=== PATIENT | female | born 1940 | race Caucasian/White ===

== ENCOUNTER 2019-02-22 17:25 | Inpatient (IN) | payer MEDICARE, OTHER ==
[~2019-02-22] VITALS: Ht 160 cm; Wt 71.0 kg
[~2019-02-22 17:25] MED LIST: ALBU2.5V8 INH; CIPR250T30 PO; CYCL10TA2 PO; DOCU100C28 PO; FURO-69 PO; HYDR-2679 PO; LISI-334 PO; MELO7.5T29 PO; PANT40GR PO; PIOG15TA63 PO; POLY17PO29 PO; WARF2TAB96 PO; WARF3TAB54 PO; vitamin D2
[2019-02-22] MEDS ORDERED: IV NORMAL SALINE 500ML BAG 500 ML IV ONE (17:30)
[2019-02-22 18:27] LABS: BASO % 0 % (0-3); EOS % 0 % (0-3); HEMATOCRIT 40.7 % (36.0-47.0); LYMPH # 0.5 x10^3/uL (1.0-4.8); LYMPH % 8 % (24-48); MEAN CORPUSCULAR HEMOGLOBIN 34 pg (25-35); MEAN CORPUSCULAR HGB CONC 35 g/dL (31-37); MEAN CORPUSCULAR VOLUME 98 fL (79-100); MONO # 0.4 x10^3/uL (0.0-1.1); MONO % 6 % (0-9); NEUT # 5.4 x10^3uL (1.8-7.7); NEUT % 86 % (31-73); PLATELET COUNT 132 x10^3/uL (140-400); RED BLOOD COUNT 4.18 x10^6/uL (3.50-5.40); RED CELL DISTRIBUTION WIDTH 12.4 % (11.5-14.5); WHITE BLOOD COUNT 6.3 x10^3/uL (4.0-11.0)
[2019-02-22] MEDS ORDERED: fentaNYL PF VIAL 100 MCG/2 ML VIAL IV ONE (18:30)
[2019-02-22 18:36] LABS: CALCIUM 8.9 mg/dL (8.5-10.1); CREATININE 1.3 mg/dL (0.6-1.0); GFR 39.7; POTASSIUM 3.9 mmol/L (3.5-5.1)
[2019-02-22 18:42] LABS: ALBUMIN 3.7 g/dL (3.4-5.0); ALBUMIN/GLOBULIN RATIO 1.3 (1.0-1.7); MAGNESIUM 2.1 mg/dL (1.8-2.4); TOTAL BILIRUBIN 0.5 mg/dL (0.2-1.0); TOTAL PROTEIN 6.5 g/dL (6.4-8.2)
[2019-02-22 18:54] LABS: % BANDS 3 % (0-9); % LYMPHS 13 % (24-48); % MONOS 2 % (0-10); % SEGS 82 % (35-66)
[2019-02-22 18:55] LABS: PLT ESTIMATE DECREASED (ADEQUATE)
--- NOTE | 2019-02-22 19:01 | RAD ---
Right lower extremity venous duplex study 02/22/2019 Clinical History: Right leg swelling and pain. History of DVT. Technique: Using a combination of real time ultrasound imaging and color-flow and pulse Doppler imaging techniques along with graded compression and augmentation, duplex evaluation of the deep venous system of the right lower extremity was performed. Multiple images were obtained. Findings: Marked edema is seen within the soft tissues of the right leg limits evaluation of the major deep venous structures of the right lower extremity to some degree. There is no definite sonographic evidence of deep venous thrombosis involving the visualized deep venous structures of the right lower extremity. Impression: Negative study. Electronically signed by: Tommy Miller MD (02/22/2019 6:59 PM) [facility]
--- NOTE | 2019-02-22 19:27 | PHYS DOC ---
Past Medical History Past Medical History: Diabetes-Type II, Hypertension, Other Additional Past Medical Histor: PVC VALVE (CARDIAC), SKIN CANCER (MIRIAM FARAH APRN) Past Surgical History: Cholecystectomy, Hip Replacement, Other Additional Past Surgical Histo: SKIN CANCER REMOVAL (MIRIAM FARAH APRN) Alcohol Use: None Drug Use: None (MIRIAM FARAH APRN) Adult General Chief Complaint Chief Complaint: MULTIPLE COMPLAINTS HPI HPI 78-year-old female presents to ER via EMS for generalized weakness and right lower extremity pain. EMS reports pt has hx of DVT- she states she doesn't think she is still on anticoag medication. No family w/pt. Pt providing minimal information during questioning. She does c/o rt upper leg pain- no reports of fall per EMS. (MIRIAM FARAH APRN) Review of Systems Review of Systems Constitutional: Denies fever or chills. Reports gen. fatigue/weakness Eyes: Denies change in visual acuity, redness, or eye pain [] HENT: Denies nasal congestion or sore throat [] Respiratory: Denies cough or shortness of breath [] Cardiovascular: No additional information not addressed in HPI [] GI: Denies abdominal pain, nausea, vomiting, bloody stools or diarrhea [] : Denies dysuria or hematuria [] Musculoskeletal: Denies back pain. Reports rt hip pain Integument: Denies rash or skin lesions [] Neurologic: Denies headache, focal weakness or sensory changes [] Endocrine: Denies polyuria or polydipsia [] All other systems were reviewed and found to be within normal limits, except as documented in this note. (MIRIAM FARAH APRN) Current Medications Current Medications Current Medications Medications (Trade) Dose Ordered Sig/Jamila Start Time Stop Time Status Last Admin Dose Admin Fentanyl Citrate (Fentanyl 2ml Vial) 25 mcg 1X ONCE 02/22/19 18:30 02/22/19 18:31 DC 02/22/19 18:34 25 MCG Sodium Chloride 500 ml @ 500 mls/hr 1X ONCE 02/22/19 17:30 02/22/19 18:29 DC 02/22/19 18:33 500 MLS/HR (ALONDRA BRUNO MD) Physical Exam Physical Exam Constitutional: Well developed, well nourished, fatigued appearance, non-toxic appearance. [place] HENT: Normocephalic, atraumatic, mucous membranes pink/dry, nose normal. [] Eyes: PERRLA, conjunctiva normal, no discharge. [] Neck: Normal range of motion, no tenderness mid line cspine- no palp. deformity/crepitus, supple, no stridor. Trachea mid line Cardiovascular: Heart rate regular rhythm, no murmur [] Lungs & Thorax: Bilateral breath sounds clear to auscultation- resp. equal/nonlabored. Abdomen: Bowel sounds normal, soft, no tenderness/distention/rigidity, no masses, no pulsatile masses. [] Skin: Warm, dry, no erythema, no rash. [] Back: No tenderness mid line spine- no palp. deformity, no CVA tenderness. [] Extremities: Pelvis stable. Tender rt lateral upper thigh into hip- no palp. deformity/ecchymosis, no cyanosis, no clubbing. Bruising rt anterior/top of rt shoulder- healed scar lateral rt shoulder. No palp. deformity. ROM intact bilat. upper extremities/lt LE. Decreased ROM rt hip- able to perform ROM of rt knee/ankle- no c/o pain, 1+ bilat. pedal nonpitting. 2+ radial bilat. 2+ dorsalis pedis/posterior tibial. Neurologic: Alert and oriented X 3, normal motor function, normal sensory function, no focal deficits noted. [] Psychologic: Affect normal, judgement normal, mood normal. [] (REFBENIT,MIRIAM Delacruz APRN) Current Patient Data Vital Signs Vital Signs Date Time Temp Pulse Resp B/P (MAP) Pulse Ox O2 Delivery O2 Flow Rate FiO2 02/22/19 19:42 64 175/78 (110) Room Air 02/22/19 18:34 20 02/22/19 18:12 97 02/22/19 17:30 99.7 99.7 (ALONDRA BRUNO MD) Lab Values Laboratory Tests Test 02/22/19 18:15 White Blood Count 6.3 x10^3/uL (4.0-11.0) Red Blood Count 4.18 x10^6/uL (3.50-5.40) Hemoglobin 14.0 g/dL (12.0-15.5) Hematocrit 40.7 % (36.0-47.0) Mean Corpuscular Volume 98 fL (79-100) Mean Corpuscular Hemoglobin 34 pg (25-35) Mean Corpuscular Hemoglobin Concent 35 g/dL (31-37) Red Cell Distribution Width 12.4 % (11.5-14.5) Platelet Count 132 x10^3/uL (140-400) L Neutrophils (%) (Auto) 86 % (31-73) H Lymphocytes (%) (Auto) 8 % (24-48) L Monocytes (%) (Auto) 6 % (0-9) Eosinophils (%) (Auto) 0 % (0-3) Basophils (%) (Auto) 0 % (0-3) Neutrophils # (Auto) 5.4 x10^3uL (1.8-7.7) Lymphocytes # (Auto) 0.5 x10^3/uL (1.0-4.8) L Monocytes # (Auto) 0.4 x10^3/uL (0.0-1.1) Eosinophils # (Auto) 0.0 x10^3/uL (0.0-0.7) Basophils # (Auto) 0.0 x10^3/uL (0.0-0.2) Segmented Neutrophils % 82 % (35-66) H Band Neutrophils % 3 % (0-9) Lymphocytes % 13 % (24-48) L Monocytes % 2 % (0-10) Platelet Estimate Decreased (ADEQUATE) Sodium Level 146 mmol/L (136-145) H Potassium Level 3.9 mmol/L (3.5-5.1) Chloride Level 105 mmol/L (98-107) Carbon Dioxide Level 31 mmol/L (21-32) Anion Gap 10 (6-14) Blood Urea Nitrogen 33 mg/dL (7-20) H Creatinine 1.3 mg/dL (0.6-1.0) H Estimated GFR (Cockcroft-Gault) 39.7 BUN/Creatinine Ratio 25 (6-20) H Glucose Level 218 mg/dL (70-99) H Calcium Level 8.9 mg/dL (8.5-10.1) Magnesium Level 2.1 mg/dL (1.8-2.4) Total Bilirubin 0.5 mg/dL (0.2-1.0) Aspartate Amino Transferase (AST) 15 U/L (15-37) Alanine Aminotransferase (ALT) 20 U/L (14-59) Alkaline Phosphatase 111 U/L (46-116) Troponin I Quantitative < 0.017 ng/mL (0.000-0.055) Total Protein 6.5 g/dL (6.4-8.2) Albumin 3.7 g/dL (3.4-5.0) Albumin/Globulin Ratio 1.3 (1.0-1.7) Laboratory Tests 02/22/19 18:15 Laboratory Tests 02/22/19 18:15 (ALONDRA BRUNO MD) EKG EKG EKG obtained 02/22/19 at 1758 Interpreted by ER physician Sinus rhythm PACs Rate 65 No STEMI (MIRIAM FARAH APRN) Radiology/Procedures Radiology/Procedures PROCEDURE: VENOUS LOWER EXTREMITY RIGHT Right lower extremity venous duplex study 02/22/2019 Clinical History: Right leg swelling and pain. History of DVT. Technique: Using a combination of real time ultrasound imaging and color-flow and pulse Doppler imaging techniques along with graded compression and augmentation, duplex evaluation of the deep venous system of the right lower extremity was performed. Multiple images were obtained. Findings: Marked edema is seen within the soft tissues of the right leg limits evaluation of the major deep venous structures of the right lower extremity to some degree. There is no definite sonographic evidence of deep venous thrombosis involving the visualized deep venous structures of the right lower extremity. Impression: Negative study. Electronically signed by: Tommy Miller MD (02/22/2019 6:59 PM) [facility] DICTATED and SIGNED BY: TOMMY MILLER MD DATE: 02/22/191858 (MIRIAM FARAH APRN) Course & Med Decision Making Course & Med Decision Making Pertinent Labs and Imaging studies reviewed. (See chart for details) Patient's god daughter and cousin arrived bedside and provided additional i nformation. Per goddaughter patient was walking to the bathroom with her assistance and her rt leg gave out on her causing her to fall and she was able to assist pt to the floor. She did strike her rt side on a fish tank. She denies that patient struck her head or had any loss of consciousness during the fall. She reports patient has been increasingly weaker. She denies patient with recent flu or cold-like illness. She denies patient has been complaining of chest pain, abdominal pain, or having any vomiting or diarrhea. She denies patient with urinary symptoms. She denies travel. Patient is a daily smoker. She has family reports she does have fentanyl patch on. Dr. Bruno viewed pt's xrays with rt hip fx- chest/rt shoulder xray neg. for obvious acute displaced fx. Will admit pt to PCP and consult orthop. Will have fentanyl patch removed for when necessary medications while in the hospital. 2009: Spoke with Dr. Peguero electronic component processor for Dr. Polanco pt's PCP. Discussed patient's case and imaging results. Discussed plans for admission with consult for orthopedics. She has remained neuro and vascular intact in right lower extremity. Patient had negative ultrasound as that had been ordered prior to obtaining additional information from family on mechanism of right leg pain and fall. 2017: Spoke with Dr. Calixto on-call orthopedics and discussed patient's case plans for consult with patient's admission for their services. (MIRIAM FARAH APRN) Course & Med Decision Making Staff Physician Addendum: I was working in the ER during the course of this patient's visit. I was available for consultation as needed, but I was not directly involved in the care of this patient. (ALONDRA BRUNO MD) Dragon Disclaimer Dragon Disclaimer This electronic medical record was generated, in whole or in part, using a voice recognition dictation system. (MIRIAM FARAH APRN) Departure Departure Impression: Primary Impression: Fracture of hip, right, closed Additional Impression: Weakness Disposition: ADMITTED INPATIENT Admitting Physician: London Polanco (MIRIAM FARAH APRN) Condition: STABLE Referrals: LONDON POLANCO MD (PCP) Problem Qualifiers MIRIAM FARAH APRN February 22, 2019 19:27 ALONDRA BURNO MD February 27, 2019 14:18
[2019-02-22 21:03] LABS: BILIRUBIN,URINE NEGATIVE (NEG); CLARITY,URINE CLEAR; COLOR,URINE YELLOW; NITRITE,URINE NEGATIVE (NEG); PH,URINE 6.5; PROTEIN,URINE NEGATIVE (NEG-TRACE)
[2019-02-22 21:08] LABS: BACTERIA,URINE FEW /HPF (0-FEW); RBC,URINE RARE /HPF (0-2); SQUAMOUS EPITHELIAL CELL,UR FEW /LPF; WBC,URINE OCC /HPF (0-4)
[2019-02-22 21:20] VITALS: BP 179/90
[2019-02-22 23:00] VITALS: BP 145/61
[2019-02-22] MEDS ORDERED: ACETAMINOPHEN 325 MG TABLET. PO PRN (23:15)
[2019-02-22] MEDS ORDERED: fentaNYL PF VIAL 100 MCG/2 ML VIAL IV PRN (23:15)
[2019-02-22] MEDS ORDERED: ONDANSETRON PF 4 MG/2 ML VIAL. IV PRN (23:15)
--- NOTE | 2019-02-22 23:49 | RAD ---
Three-view right shoulder radiographs 02/22/2019 CLINICAL HISTORY: Fall with right shoulder bruising. AP internal and external rotation and transscapular digital radiographs of the right shoulder were obtained. Surgical clips overlie the right axilla and right lateral chest. No fracture or dislocation of the right shoulder is seen. There is diffuse osteopenia of the visualized bony structures. Somewhat rounded soft tissue calcifications are seen inferior to the right shoulder which measure 5 mm to 2.5 cm in size. Mild to moderate degenerative changes are seen involving the right AC joint and right glenohumeral joint. IMPRESSION: No fracture or dislocation of the right shoulder is seen. Electronically signed by: Tommy Miller MD (02/22/2019 11:46 PM) [facility]
--- NOTE | 2019-02-22 23:51 | RAD ---
AP pelvis radiograph to include AP and lateral radiographs of the right hip 02/22/2019 CLINICAL HISTORY: Pelvic and right hip pain. An AP digital radiograph of the pelvis to include both hips was obtained. AP and lateral digital radiographs of the right hip were obtained. The patient is post bilateral CHERIE. There is diffuse osteopenia of the visualized bony structures. No pelvic bone fracture is seen. Both hips are intact. No fracture or dislocation of the right hip is seen. IMPRESSION: No fracture or dislocation of the right hip is seen. Electronically signed by: Tommy Milelr MD (02/22/2019 11:49 PM) [facility]
--- NOTE | 2019-02-22 23:53 | RAD ---
AP portable chest radiograph 02/22/2019 Clinical History: Weakness. An AP erect portable digital radiograph of the chest was obtained. Comparison study is dated 04/11/2014. Surgical clips overlie the right axilla. The cardiac silhouette is mildly enlarged. The thoracic aorta is tortuous. No acute pulmonary infiltrate is seen. No pleural effusion or pneumothorax is noted. There is diffuse osteopenia of the visualized bony structures. Degenerative changes are seen involving the thoracic spine and both shoulders.. Impression: No acute abnormality is seen. Electronically signed by: Tommy Miller MD (02/22/2019 11:50 PM) [facility]
[2019-02-23 03:00] VITALS: BP 124/81
[2019-02-23 07:00] VITALS: BP 111/48
[2019-02-23] MEDS ORDERED: HYDROcodone/APAP 7.5/325MG 1 TAB TABLET PO PRN (07:00)
[2019-02-23] MEDS ORDERED: ALBUTEROL SULFATE 2.5 MG/3 ML NEBU. INH PRN (07:00)
[2019-02-23] MEDS ORDERED: POLYETHYLENE GLYCOL 3350 17 GM PACKET. PO PRN (07:00)
--- NOTE | 2019-02-23 07:05 | PDOC1 ---
History and Physical Date of Admission Date of Admission 02/22/19 Identification/Chief Complaint Chief Complaint Right hip pain Source Source: Chart review, Patient History of Present Illness History of Present Illness Received a phone call from ER last night that pt had right hip fracture. Hip xray read does not show fracture. Pt is very hard of hearing and has a difficult time being able to answer questions. In discussing with nursing and reviewing the chart, it appears that pt may have had a fall last night and hit a fish tank. She does have multiple bruises. She has significant pain with me trying to touch her right lower extremity Past Medical History Cardiovascular: HTN, Hyperlipidemia Pulmonary: COPD GI: GERD Heme/Onc: No pertinent hx Hepatobiliary: No pertinent hx Psych: No pertinent hx Rheumatologic: No pertinent hx Infectious disease: No pertinent hx ENT: No pertinent hx Renal/: No pertinent hx Endocrine: Diabetes Dermatology: No pertinent hx Past Surgical History Past Surgical History: Cholecystectomy, Tubal Ligation, Other (Abscess I&Ds) Family History Family History: Cancer, Heart Disease Social History Smoke: <1 pack per day ALCOHOL: none Drugs: None Current Problem List Problem List Problems Medical Problems: (1) Fracture of hip, right, closed Status: Acute (2) Weakness Status: Acute Current Medications Current Medications Current Medications Medications (Trade) Dose Ordered Sig/Jamila Start Time Stop Time Status Last Admin Dose Admin Acetaminophen (Tylenol) 650 mg PRN Q4HRS PRN 02/22/19 23:15 02/23/19 23:14 Fentanyl Citrate (Fentanyl 2ml Vial) 25 mcg PRN Q2HRS PRN 02/22/19 23:15 02/23/19 23:14 Ondansetron HCl (Zofran) 4 mg PRN Q8HRS PRN 02/22/19 23:15 02/23/19 23:14 Sodium Chloride 500 ml @ 500 mls/hr 1X ONCE 02/22/19 17:30 02/22/19 18:29 DC 02/22/19 18:33 500 MLS/HR Allergies Allergies Allergies Coded Allergies Type Severity Reaction Last Updated Verified Penicillins Allergy Intermediate 02/23/19 Yes morphine Allergy Intermediate 02/23/19 Yes Uncoded Allergies Type Severity Reaction Last Updated Verified STEROIDS Adverse Reaction Severe Anxiety 02/22/19 ROS Review of System Unable to obtain as pt is not able to contribute to H&P Physical Exam Physical Exam GEN.: No apparent distress. Alert and oriented. HEENT: Head is normocephalic, atraumatic NECK: Supple. LUNGS: Clear to auscultation. HEART: RRR, S1, S2 present. Peripheral pulses intact ABDOMEN: Soft, nontender. Positive bowel sounds. EXTREMITIES: Without any cyanosis, multiple ecchymoses, right lower extremity TTP NEUROLOGIC: CN2-12 GI PSYCHIATRIC: Normal affect, normal mood. SKIN: No ulcerations Vitals Vitals Vital Signs Date Time Temp Pulse Resp B/P (MAP) Pulse Ox O2 Delivery O2 Flow Rate FiO2 02/23/19 03:00 98.1 85 16 124/81 (95) 94 Room Air 98.1 Labs Labs Laboratory Tests Test 02/22/19 18:15 02/22/19 20:50 White Blood Count 6.3 x10^3/uL (4.0-11.0) Red Blood Count 4.18 x10^6/uL (3.50-5.40) Hemoglobin 14.0 g/dL (12.0-15.5) Hematocrit 40.7 % (36.0-47.0) Mean Corpuscular Volume 98 fL (79-100) Mean Corpuscular Hemoglobin 34 pg (25-35) Mean Corpuscular Hemoglobin Concent 35 g/dL (31-37) Red Cell Distribution Width 12.4 % (11.5-14.5) Platelet Count 132 x10^3/uL (140-400) Neutrophils (%) (Auto) 86 % (31-73) Lymphocytes (%) (Auto) 8 % (24-48) Monocytes (%) (Auto) 6 % (0-9) Eosinophils (%) (Auto) 0 % (0-3) Basophils (%) (Auto) 0 % (0-3) Neutrophils # (Auto) 5.4 x10^3uL (1.8-7.7) Lymphocytes # (Auto) 0.5 x10^3/uL (1.0-4.8) Monocytes # (Auto) 0.4 x10^3/uL (0.0-1.1) Eosinophils # (Auto) 0.0 x10^3/uL (0.0-0.7) Basophils # (Auto) 0.0 x10^3/uL (0.0-0.2) Segmented Neutrophils % 82 % (35-66) Band Neutrophils % 3 % (0-9) Lymphocytes % 13 % (24-48) Monocytes % 2 % (0-10) Platelet Estimate Decreased (ADEQUATE) Sodium Level 146 mmol/L (136-145) Potassium Level 3.9 mmol/L (3.5-5.1) Chloride Level 105 mmol/L (98-107) Carbon Dioxide Level 31 mmol/L (21-32) Anion Gap 10 (6-14) Blood Urea Nitrogen 33 mg/dL (7-20) Creatinine 1.3 mg/dL (0.6-1.0) Estimated GFR (Cockcroft-Gault) 39.7 BUN/Creatinine Ratio 25 (6-20) Glucose Level 218 mg/dL (70-99) Calcium Level 8.9 mg/dL (8.5-10.1) Magnesium Level 2.1 mg/dL (1.8-2.4) Total Bilirubin 0.5 mg/dL (0.2-1.0) Aspartate Amino Transf (AST/SGOT) 15 U/L (15-37) Alanine Aminotransferase (ALT/SGPT) 20 U/L (14-59) Alkaline Phosphatase 111 U/L (46-116) Troponin I Quantitative < 0.017 ng/mL (0.000-0.055) Total Protein 6.5 g/dL (6.4-8.2) Albumin 3.7 g/dL (3.4-5.0) Albumin/Globulin Ratio 1.3 (1.0-1.7) Urine Collection Type Unknown Urine Color Yellow Urine Clarity Clear Urine pH 6.5 Urine Specific [place] 1.015 Urine Protein Negative mg/dL (NEG-TRACE) Urine Glucose (UA) 250 mg/dL (NEG) Urine Ketones (Stick) Negative mg/dL (NEG) Urine Blood Negative (NEG) Urine Nitrite Negative (NEG) Urine Bilirubin Negative (NEG) Urine Urobilinogen Dipstick 1.0 mg/dL (0.2 mg/dL) Urine Leukocyte Esterase Negative (NEG) Urine RBC Rare /HPF (0-2) Urine WBC Occ /HPF (0-4) Urine Squamous Epithelial Cells Few /LPF Urine Bacteria Few /HPF (0-FEW) Urine Mucus Slight /LPF Laboratory Tests Test 02/22/19 18:15 02/22/19 20:50 White Blood Count 6.3 x10^3/uL (4.0-11.0) Red Blood Count 4.18 x10^6/uL (3.50-5.40) Hemoglobin 14.0 g/dL (12.0-15.5) Hematocrit 40.7 % (36.0-47.0) Mean Corpuscular Volume 98 fL (79-100) Mean Corpuscular Hemoglobin 34 pg (25-35) Mean Corpuscular Hemoglobin Concent 35 g/dL (31-37) Red Cell Distribution Width 12.4 % (11.5-14.5) Platelet Count 132 x10^3/uL (140-400) Neutrophils (%) (Auto) 86 % (31-73) Lymphocytes (%) (Auto) 8 % (24-48) Monocytes (%) (Auto) 6 % (0-9) Eosinophils (%) (Auto) 0 % (0-3) Basophils (%) (Auto) 0 % (0-3) Neutrophils # (Auto) 5.4 x10^3uL (1.8-7.7) Lymphocytes # (Auto) 0.5 x10^3/uL (1.0-4.8) Monocytes # (Auto) 0.4 x10^3/uL (0.0-1.1) Eosinophils # (Auto) 0.0 x10^3/uL (0.0-0.7) Basophils # (Auto) 0.0 x10^3/uL (0.0-0.2) Segmented Neutrophils % 82 % (35-66) Band Neutrophils % 3 % (0-9) Lymphocytes % 13 % (24-48) Monocytes % 2 % (0-10) Platelet Estimate Decreased (ADEQUATE) Sodium Level 146 mmol/L (136-145) Potassium Level 3.9 mmol/L (3.5-5.1) Chloride Level 105 mmol/L (98-107) Carbon Dioxide Level 31 mmol/L (21-32) Anion Gap 10 (6-14) Blood Urea Nitrogen 33 mg/dL (7-20) Creatinine 1.3 mg/dL (0.6-1.0) Estimated GFR (Cockcroft-Gault) 39.7 BUN/Creatinine Ratio 25 (6-20) Glucose Level 218 mg/dL (70-99) Calcium Level 8.9 mg/dL (8.5-10.1) Magnesium Level 2.1 mg/dL (1.8-2.4) Total Bilirubin 0.5 mg/dL (0.2-1.0) Aspartate Amino Transf (AST/SGOT) 15 U/L (15-37) Alanine Aminotransferase (ALT/SGPT) 20 U/L (14-59) Alkaline Phosphatase 111 U/L (46-116) Troponin I Quantitative < 0.017 ng/mL (0.000-0.055) Total Protein 6.5 g/dL (6.4-8.2) Albumin 3.7 g/dL (3.4-5.0) Albumin/Globulin Ratio 1.3 (1.0-1.7) Urine Collection Type Unknown Urine Color Yellow Urine Clarity Clear Urine pH 6.5 Urine Specific [place] 1.015 Urine Protein Negative mg/dL (NEG-TRACE) Urine Glucose (UA) 250 mg/dL (NEG) Urine Ketones (Stick) Negative mg/dL (NEG) Urine Blood Negative (NEG) Urine Nitrite Negative (NEG) Urine Bilirubin Negative (NEG) Urine Urobilinogen Dipstick 1.0 mg/dL (0.2 mg/dL) Urine Leukocyte Esterase Negative (NEG) Urine RBC Rare /HPF (0-2) Urine WBC Occ /HPF (0-4) Urine Squamous Epithelial Cells Few /LPF Urine Bacteria Few /HPF (0-FEW) Urine Mucus Slight /LPF VTE Prophylaxis Ordered VTE Prophylaxis Devices: Yes VTE Pharmacological Prophylaxi: No Assessment/Plan Assessment/Plan Pt is a 78yo CF admitted for possible right hip fracture 1)Right hip pain- official xray read does not show fracture. Pt having a lot of pain. Family not currently present. Will have PT/OT evaluate. Pt appears to be wheelchair bound at baseline. May need SNF placement. 2)HTN- well controlled, will continue home medications of Lisinopril 20mg, Lasix 40mg 3)DM2- blood sugars appear to be uncontrolled. HbA1C pending. SSI available. Resumed on pioglitazone 4)TIM- pt appears to be slightly dehydrated. IVF hydration provided, will recheck 5)Hypernatremia- 2/2 above, CTM 6)Thrombocytopenia- appears to be acute, CTM BRYAN HARPER MD February 23, 2019 07:05
[2019-02-23] MEDS ORDERED: DEXTROSE 50% 25 GM / 50ML DISP.SYRIN. IV PRN (07:15)
--- NOTE | 2019-02-23 07:17 | EKG ---
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
[2019-02-23] MEDS ORDERED: PANTOPRAZOLE 40 MG TABLET.DR. PO SCH (07:30)
[2019-02-23] MEDS ORDERED: IV NORMAL SALINE 1000ML BAG 1,000 ML IV ONE (08:00)
[2019-02-23] MEDS: INSULIN LISPRO 300 UNITS/3 ML INSULN.PEN. SQ SCH ×2 (08:42→11:50)
[2019-02-23] MEDS ORDERED: LISINOPRIL 20 MG TABLET PO SCH (09:00)
[2019-02-23] MEDS ORDERED: DOCUSATE SODIUM 100 MG CAPSULE. PO SCH (09:00)
[2019-02-23] MEDS ORDERED: PIOGLITAZONE 15 MG TABLET. PO SCH (09:00)
[2019-02-23] MEDS ORDERED: CYCLOBENZAPRINE 10 MG TABLET. PO SCH ×2 (09:00→21:00)
[2019-02-23] MEDS ORDERED: MELOXICAM 7.5 MG TABLET PO SCH (09:00)
[2019-02-23 09:27] LABS: BASO % 0 % (0-3); EOS # 0.1 x10^3/uL (0.0-0.7); EOS % 1 % (0-3); HEMATOCRIT 36.7 % (36.0-47.0); HEMOGLOBIN 12.3 g/dL (12.0-15.5); LYMPH # 1.2 x10^3/uL (1.0-4.8); LYMPH % 23 % (24-48); MEAN CORPUSCULAR HEMOGLOBIN 33 pg (25-35); MEAN CORPUSCULAR HGB CONC 34 g/dL (31-37); MEAN CORPUSCULAR VOLUME 98 fL (79-100); MONO # 0.5 x10^3/uL (0.0-1.1); MONO % 9 % (0-9); NEUT # 3.7 x10^3uL (1.8-7.7); NEUT % 67 % (31-73); PLATELET COUNT 118 x10^3/uL (140-400); RED BLOOD COUNT 3.73 x10^6/uL (3.50-5.40); RED CELL DISTRIBUTION WIDTH 12.3 % (11.5-14.5); WHITE BLOOD COUNT 5.5 x10^3/uL (4.0-11.0)
[2019-02-23 09:38] LABS: ALBUMIN/GLOBULIN RATIO 1.4 (1.0-1.7); CALCIUM 8.1 mg/dL (8.5-10.1); GFR 53.8; POTASSIUM 3.8 mmol/L (3.5-5.1); TOTAL BILIRUBIN 0.7 mg/dL (0.2-1.0); TOTAL PROTEIN 5.2 g/dL (6.4-8.2)
[2019-02-23 11:00] VITALS: BP 135/59
--- NOTE | 2019-02-23 12:27 | PDOC2 ---
CONSULT Date of Consult Date of Consult DATE: 02/23/19 TIME: 12:21 Reason for Consult Reason for Consult: right hip pain, possible fracture Identification/Chief Complaint Chief Complaint right hip pain after a fall Source Source: Caregiver, Chart review, Patient History of Present Illness Reason for Visit: This 78 year old woman is hard of hearing and didn't speak, but answered questions by shaking her head. Sh'e admits to a fall, and now right hip pain wi th ambulation. It's tolerable, and she has been up with a walker today. Some history provided by family member in the room. Remote hip surgery on the right. Past Medical History Cardiovascular: HTN, Hyperlipidemia Pulmonary: COPD GI: GERD Heme/Onc: No pertinent hx Hepatobiliary: No pertinent hx Psych: No pertinent hx Rheumatologic: No pertinent hx Infectious disease: No pertinent hx ENT: No pertinent hx Renal/: No pertinent hx Endocrine: Diabetes Dermatology: No pertinent hx Past Surgical History Past Surgical History: Cholecystectomy, Tubal Ligation, Other (Abscess I&Ds) Family History Family History: Cancer, Heart Disease Social History <1 pack per day ALCOHOL: none Drugs: None Lives: with Family Current Problem List Problem List Problems Medical Problems: (1) Fracture of hip, right, closed Status: Acute (2) Weakness Status: Acute Current Medications Current Medications Current Medications Sodium Chloride 500 ml @ 500 mls/hr 1X ONCE IV Last administered on 02/22/19at 18:33; Start 02/22/19 at 17:30; Stop 02/22/19 at 18:29; Status DC Fentanyl Citrate (Fentanyl 2ml Vial) 25 mcg 1X ONCE IV Last administered on 02/22/19at 18:34; Start 02/22/19 at 18:30; Stop 02/22/19 at 18:31; Status DC Ondansetron HCl (Zofran) 4 mg PRN Q8HRS PRN IV NAUSEA/VOMITING; Start 02/22/19 at 23:15; Stop 02/23/19 at 23:14 Fentanyl Citrate (Fentanyl 2ml Vial) 25 mcg PRN Q2HRS PRN IV PAIN; Start 02/22/19 at 23:15; Stop 02/23/19 at 23:14 Acetaminophen (Tylenol) 650 mg PRN Q4HRS PRN PO FEVER; Start 02/22/19 at 23:15; Stop 02/23/19 at 23:14 Albuterol Sulfate (Ventolin Neb Soln) 2.5 mg PRN Q6HRS PRN INH SHORTNESS OF BREATH; Start 02/23/19 at 07:00 Cyclobenzaprine HCl (Flexeril) 10 mg DAILY PO ; Start 02/23/19 at 09:00; Stop 02/23/19 at 09:00; Status DC Docusate Sodium (Colace) 100 mg BID PO Last administered on 02/23/19at 08:32; Start 02/23/19 at 09:00 Acetaminophen/ Hydrocodone Bitart (Lortab 7.5/325) 1 tab PRN Q6HRS PRN PO PAIN; Start 02/23/19 at 07:00 Lisinopril (Prinivil) 20 mg DAILY PO Last administered on 02/23/19at 08:32; Start 02/23/19 at 09:00 Meloxicam (Mobic) 7.5 mg DAILY PO Last administered on 02/23/19at 08:32; Start 02/23/19 at 09:00 Pantoprazole Sodium (Protonix) 40 mg DAILYAC PO Last administered on 02/23/19at 08:31; Start 02/23/19 at 07:30 Pioglitazone HCl (Actos) 15 mg DAILY PO Last administered on 02/23/19at 08:31; Start 02/23/19 at 09:00 Polyethylene Glycol (miraLAX PACKET) 17 gm PRN DAILY PRN PO CONSTIPATION; Start 02/23/19 at 07:00 Insulin Human Lispro (HumaLOG) 0-5 UNITS TIDWMEALS SQ Last administered on 02/23/19at 08:42; Start 02/23/19 at 08:00 Dextrose (Dextrose 50%-Water Syringe) 12.5 gm PRN Q15MIN PRN IV SEE COMMENTS; Start 02/23/19 at 07:15 Sodium Chloride 1,000 ml @ 75 mls/hr 1X ONCE IV Last administered on 02/23/19at 08:32; Start 02/23/19 at 08:00; Stop 02/23/19 at 21:19 Cyclobenzaprine HCl (Flexeril) 10 mg QHS PO ; Start 02/23/19 at 21:00 Active Scripts Active Miralax (Polyethylene Glycol 3350) 17 Gm Packet 17 Gm PO DAILY 30 Days Reported Coumadin (Warfarin Sodium) 3 Mg Tablet 3 Mg PO DAILY [vitamin D2 ] 50,000 WEEKLY Meloxicam 7.5 Mg Tablet 7.5 Mg PO DAILY Proair Hfa Inhaler (Albuterol Sulfate) 8.5 Gm Hfa.aer.ad 1 Puff INH PRN Q6HRS PRN Lisinopril 20 Mg Tablet 20 Mg PO DAILY Docusate Sodium 100 Mg Capsule 100 Mg PO BID Pioglitazone Hcl 15 Mg Tablet 15 Mg PO DAILY Protonix (Pantoprazole Sodium) 40 Mg Granpkt.dr 40 Mg PO DAILY Lortab 7.5-325 mg Tablet (Hydrocodone/Acetaminophen) 1 Each Tablet 1 Tab PO PRN Q6HRS PRN Allergies Allergies: Coded Allergies: Penicillins (Verified Allergy, Intermediate, 02/23/19) morphine (Verified Allergy, Intermediate, 02/23/19) prednisone (Verified Allergy, Intermediate, "STEROIDS" cause anxiety,hallucinations, 02/23/19) ROS HEENT: YES: Hearing change Musculoskeletal: Yes Joint Pain Physical Exam General: Alert, Cooperative, No acute distress HEENT: Atraumatic, Other (gave no verbal responses, but appeared to hear when I spoke loudly) Lungs: Normal air movement Heart: Regular rate Extremities: Other (the right hip has tenderness to palpation. There is no deformity. There is no ecchymosis. The distal neurovascular function is unremarkable. Limb length and alignment is normal.) Neuro: Sensation intact Psych/Mental Status: Mood NL Vitals VITALS Vital Signs Date Time Temp Pulse Resp B/P (MAP) Pulse Ox O2 Delivery O2 Flow Rate FiO2 02/23/19 08:32 82 111/48 02/23/19 07:42 Room Air 02/23/19 07:00 97.8 16 92 97.8 Labs Labs Laboratory Tests Test 02/22/19 18:15 02/22/19 20:50 02/23/19 07:54 02/23/19 08:30 White Blood Count 6.3 x10^3/uL (4.0-11.0) 5.5 x10^3/uL (4.0-11.0) Red Blood Count 4.18 x10^6/uL (3.50-5.40) 3.73 x10^6/uL (3.50-5.40) Hemoglobin 14.0 g/dL (12.0-15.5) 12.3 g/dL (12.0-15.5) Hematocrit 40.7 % (36.0-47.0) 36.7 % (36.0-47.0) Mean Corpuscular Volume 98 fL (79-100) 98 fL (79-100) Mean Corpuscular Hemoglobin 34 pg (25-35) 33 pg (25-35) Mean Corpuscular Hemoglobin Concent 35 g/dL (31-37) 34 g/dL (31-37) Red Cell Distribution Width 12.4 % (11.5-14.5) 12.3 % (11.5-14.5) Platelet Count 132 x10^3/uL (140-400) 118 x10^3/uL (140-400) Neutrophils (%) (Auto) 86 % (31-73) 67 % (31-73) Lymphocytes (%) (Auto) 8 % (24-48) 23 % (24-48) Monocytes (%) (Auto) 6 % (0-9) 9 % (0-9) Eosinophils (%) (Auto) 0 % (0-3) 1 % (0-3) Basophils (%) (Auto) 0 % (0-3) 0 % (0-3) Neutrophils # (Auto) 5.4 x10^3uL (1.8-7.7) 3.7 x10^3uL (1.8-7.7) Lymphocytes # (Auto) 0.5 x10^3/uL (1.0-4.8) 1.2 x10^3/uL (1.0-4.8) Monocytes # (Auto) 0.4 x10^3/uL (0.0-1.1) 0.5 x10^3/uL (0.0-1.1) Eosinophils # (Auto) 0.0 x10^3/uL (0.0-0.7) 0.1 x10^3/uL (0.0-0.7) Basophils # (Auto) 0.0 x10^3/uL (0.0-0.2) 0.0 x10^3/uL (0.0-0.2) Segmented Neutrophils % 82 % (35-66) Band Neutrophils % 3 % (0-9) Lymphocytes % 13 % (24-48) Monocytes % 2 % (0-10) Platelet Estimate Decreased (ADEQUATE) Sodium Level 146 mmol/L (136-145) 146 mmol/L (136-145) Potassium Level 3.9 mmol/L (3.5-5.1) 3.8 mmol/L (3.5-5.1) Chloride Level 105 mmol/L (98-107) 108 mmol/L (98-107) Carbon Dioxide Level 31 mmol/L (21-32) 29 mmol/L (21-32) Anion Gap 10 (6-14) 9 (6-14) Blood Urea Nitrogen 33 mg/dL (7-20) 26 mg/dL (7-20) Creatinine 1.3 mg/dL (0.6-1.0) 1.0 mg/dL (0.6-1.0) Estimated GFR (Cockcroft-Gault) 39.7 53.8 BUN/Creatinine Ratio 25 (6-20) 26 (6-20) Glucose Level 218 mg/dL (70-99) 197 mg/dL (70-99) Calcium Level 8.9 mg/dL (8.5-10.1) 8.1 mg/dL (8.5-10.1) Magnesium Level 2.1 mg/dL (1.8-2.4) Total Bilirubin 0.5 mg/dL (0.2-1.0) 0.7 mg/dL (0.2-1.0) Aspartate Amino Transf (AST/SGOT) 15 U/L (15-37) 14 U/L (15-37) Alanine Aminotransferase (ALT/SGPT) 20 U/L (14-59) 18 U/L (14-59) Alkaline Phosphatase 111 U/L (46-116) 88 U/L (46-116) Troponin I Quantitative < 0.017 ng/mL (0.000-0.055) Total Protein 6.5 g/dL (6.4-8.2) 5.2 g/dL (6.4-8.2) Albumin 3.7 g/dL (3.4-5.0) 3.0 g/dL (3.4-5.0) Albumin/Globulin Ratio 1.3 (1.0-1.7) 1.4 (1.0-1.7) Urine Collection Type Unknown Urine Color Yellow Urine Clarity Clear Urine pH 6.5 Urine Specific [place] 1.015 Urine Protein Negative mg/dL (NEG-TRACE) Urine Glucose (UA) 250 mg/dL (NEG) Urine Ketones (Stick) Negative mg/dL (NEG) Urine Blood Negative (NEG) Urine Nitrite Negative (NEG) Urine Bilirubin Negative (NEG) Urine Urobilinogen Dipstick 1.0 mg/dL (0.2 mg/dL) Urine Leukocyte Esterase Negative (NEG) Urine RBC Rare /HPF (0-2) Urine WBC Occ /HPF (0-4) Urine Squamous Epithelial Cells Few /LPF Urine Bacteria Few /HPF (0-FEW) Urine Mucus Slight /LPF Glucose (Fingerstick) 186 mg/dL (70-99) Test 02/23/19 11:27 Glucose (Fingerstick) 141 mg/dL (70-99) Laboratory Tests Test 02/22/19 18:15 02/22/19 20:50 02/23/19 07:54 02/23/19 08:30 White Blood Count 6.3 x10^3/uL (4.0-11.0) 5.5 x10^3/uL (4.0-11.0) Red Blood Count 4.18 x10^6/uL (3.50-5.40) 3.73 x10^6/uL (3.50-5.40) Hemoglobin 14.0 g/dL (12.0-15.5) 12.3 g/dL (12.0-15.5) Hematocrit 40.7 % (36.0-47.0) 36.7 % (36.0-47.0) Mean Corpuscular Volume 98 fL (79-100) 98 fL (79-100) Mean Corpuscular Hemoglobin 34 pg (25-35) 33 pg (25-35) Mean Corpuscular Hemoglobin Concent 35 g/dL (31-37) 34 g/dL (31-37) Red Cell Distribution Width 12.4 % (11.5-14.5) 12.3 % (11.5-14.5) Platelet Count 132 x10^3/uL (140-400) 118 x10^3/uL (140-400) Neutrophils (%) (Auto) 86 % (31-73) 67 % (31-73) Lymphocytes (%) (Auto) 8 % (24-48) 23 % (24-48) Monocytes (%) (Auto) 6 % (0-9) 9 % (0-9) Eosinophils (%) (Auto) 0 % (0-3) 1 % (0-3) Basophils (%) (Auto) 0 % (0-3) 0 % (0-3) Neutrophils # (Auto) 5.4 x10^3uL (1.8-7.7) 3.7 x10^3uL (1.8-7.7) Lymphocytes # (Auto) 0.5 x10^3/uL (1.0-4.8) 1.2 x10^3/uL (1.0-4.8) Monocytes # (Auto) 0.4 x10^3/uL (0.0-1.1) 0.5 x10^3/uL (0.0-1.1) Eosinophils # (Auto) 0.0 x10^3/uL (0.0-0.7) 0.1 x10^3/uL (0.0-0.7) Basophils # (Auto) 0.0 x10^3/uL (0.0-0.2) 0.0 x10^3/uL (0.0-0.2) Segmented Neutrophils % 82 % (35-66) Band Neutrophils % 3 % (0-9) Lymphocytes % 13 % (24-48) Monocytes % 2 % (0-10) Platelet Estimate Decreased (ADEQUATE) Sodium Level 146 mmol/L (136-145) 146 mmol/L (136-145) Potassium Level 3.9 mmol/L (3.5-5.1) 3.8 mmol/L (3.5-5.1) Chloride Level 105 mmol/L (98-107) 108 mmol/L (98-107) Carbon Dioxide Level 31 mmol/L (21-32) 29 mmol/L (21-32) Anion Gap 10 (6-14) 9 (6-14) Blood Urea Nitrogen 33 mg/dL (7-20) 26 mg/dL (7-20) Creatinine 1.3 mg/dL (0.6-1.0) 1.0 mg/dL (0.6-1.0) Estimated GFR (Cockcroft-Gault) 39.7 53.8 BUN/Creatinine Ratio 25 (6-20) 26 (6-20) Glucose Level 218 mg/dL (70-99) 197 mg/dL (70-99) Calcium Level 8.9 mg/dL (8.5-10.1) 8.1 mg/dL (8.5-10.1) Magnesium Level 2.1 mg/dL (1.8-2.4) Total Bilirubin 0.5 mg/dL (0.2-1.0) 0.7 mg/dL (0.2-1.0) Aspartate Amino Transf (AST/SGOT) 15 U/L (15-37) 14 U/L (15-37) Alanine Aminotransferase (ALT/SGPT) 20 U/L (14-59) 18 U/L (14-59) Alkaline Phosphatase 111 U/L (46-116) 88 U/L (46-116) Troponin I Quantitative < 0.017 ng/mL (0.000-0.055) Total Protein 6.5 g/dL (6.4-8.2) 5.2 g/dL (6.4-8.2) Albumin 3.7 g/dL (3.4-5.0) 3.0 g/dL (3.4-5.0) Albumin/Globulin Ratio 1.3 (1.0-1.7) 1.4 (1.0-1.7) Urine Collection Type Unknown Urine Color Yellow Urine Clarity Clear Urine pH 6.5 Urine Specific [place] 1.015 Urine Protein Negative mg/dL (NEG-TRACE) Urine Glucose (UA) 250 mg/dL (NEG) Urine Ketones (Stick) Negative mg/dL (NEG) Urine Blood Negative (NEG) Urine Nitrite Negative (NEG) Urine Bilirubin Negative (NEG) Urine Urobilinogen Dipstick 1.0 mg/dL (0.2 mg/dL) Urine Leukocyte Esterase Negative (NEG) Urine RBC Rare /HPF (0-2) Urine WBC Occ /HPF (0-4) Urine Squamous Epithelial Cells Few /LPF Urine Bacteria Few /HPF (0-FEW) Urine Mucus Slight /LPF Glucose (Fingerstick) 186 mg/dL (70-99) Test 02/23/19 11:27 Glucose (Fingerstick) 141 mg/dL (70-99) Images Images I reviewed the current x-rays. There is a noncemented hemiarthroplasty in good position, unchanged from x-rays 2014. There is however a new lucency at the lateral cortex, below the greater trochanter, which is new from 2014 and represents a nondisplaced fracture. Assessment/Plan Assessment/Plan I believe there is a nondisplaced periprosthetic fracture of the lateral cortex of the right proximal femur. This does not require surgery, at least if it does not displace. She may weight-bear as tolerated with a walker, and will likely have pain for 6-8 weeks as the fracture heals. I recommended a follow-up x-ray in the office in about 3 weeks to make sure the fragment has not displaced. I spoke to the patient and her family member about my recommendations. JIN VILLA MD February 23, 2019 12:27
--- NOTE | 2019-02-23 13:27 | PDOC3 ---
Discharge Summary Date of Admission: February 22, 2019 Date of Discharge: February 23, 2019 Follow-Up: Other ([address] Polanco) Admitting Diagnosis comment: Right hip/leg pain FINAL DIAGNOSIS Right hip fracture, HTN, DM2, TIM, Hypernatremia, Thrombocytopenia Brief Hospital Course Pt is a 78yo CF admitted for possible right hip fracture 1)Right hip fracture- as reviewed by Ortho. Orthopedic physician and family discussed further evaluation and treatment and it was agreed that pt will be discharged home. She will need repeat xray in 3 weeks to ensure bone fragment does not displace. 2)HTN- well controlled, continued on home medications of Lisinopril 20mg, Lasix 40mg 3)DM2- blood sugars appear to be uncontrolled on admission but HbA1C this admis karissa is 6.7. Continued on pioglitazone, f/u with Dr. Polanco 4)TIM- pt appears to be slightly dehydrated. IVF hydration provided, will need repeat BMP 5)Hypernatremia- 2/2 above, CTM 6)Thrombocytopenia- appears to be acute, CTM CONDITION AT DISCHARGE: Stable Discharge Medications Current Medications Sodium Chloride 500 ml @ 500 mls/hr 1X ONCE IV Last administered on 02/22/19at 18:33; Start 02/22/19 at 17:30; Stop 02/22/19 at 18:29; Status DC Fentanyl Citrate (Fentanyl 2ml Vial) 25 mcg 1X ONCE IV Last administered on 02/22/19at 18:34; Start 02/22/19 at 18:30; Stop 02/22/19 at 18:31; Status DC Ondansetron HCl (Zofran) 4 mg PRN Q8HRS PRN IV NAUSEA/VOMITING; Start 02/22/19 at 23:15; Stop 02/23/19 at 23:14 Fentanyl Citrate (Fentanyl 2ml Vial) 25 mcg PRN Q2HRS PRN IV PAIN; Start 02/22/19 at 23:15; Stop 02/23/19 at 23:14 Acetaminophen (Tylenol) 650 mg PRN Q4HRS PRN PO FEVER; Start 02/22/19 at 23:15; Stop 02/23/19 at 23:14 Albuterol Sulfate (Ventolin Neb Soln) 2.5 mg PRN Q6HRS PRN INH SHORTNESS OF BREATH; Start 02/23/19 at 07:00 Cyclobenzaprine HCl (Flexeril) 10 mg DAILY PO ; Start 02/23/19 at 09:00; Stop 02/23/19 at 09:00; Status DC Docusate Sodium (Colace) 100 mg BID PO Last administered on 02/23/19at 08:32; Start 02/23/19 at 09:00 Acetaminophen/ Hydrocodone Bitart (Lortab 7.5/325) 1 tab PRN Q6HRS PRN PO PAIN; Start 02/23/19 at 07:00 Lisinopril (Prinivil) 20 mg DAILY PO Last administered on 02/23/19at 08:32; Start 02/23/19 at 09:00 Meloxicam (Mobic) 7.5 mg DAILY PO Last administered on 02/23/19 08:32; Start 02/23/19 at 09:00 Pantoprazole Sodium (Protonix) 40 mg DAILYAC PO Last administered on 02/23/19 08:31; Start 02/23/19 at 07:30 Pioglitazone HCl (Actos) 15 mg DAILY PO Last administered on 02/23/19 08:31; Start 02/23/19 at 09:00 Polyethylene Glycol (miraLAX PACKET) 17 gm PRN DAILY PRN PO CONSTIPATION; Star t 02/23/19 at 07:00 Insulin Human Lispro (HumaLOG) 0-5 UNITS TIDWMEALS SQ Last administered on 02/23/19at 08:42; Start 02/23/19 at 08:00 Dextrose (Dextrose 50%-Water Syringe) 12.5 gm PRN Q15MIN PRN IV SEE COMMENTS; Start 02/23/19 at 07:15 Sodium Chloride 1,000 ml @ 75 mls/hr 1X ONCE IV Last administered on 02/23/19 08:32; Start 02/23/19 at 08:00; Stop 02/23/19 at 21:19 Cyclobenzaprine HCl (Flexeril) 10 mg QHS PO ; Start 02/23/19 at 21:00 Active Scripts Active Miralax (Polyethylene Glycol 3350) 17 Gm Packet 17 Gm PO DAILY 30 Days Reported Coumadin (Warfarin Sodium) 3 Mg Tablet 3 Mg PO DAILY [vitamin D2 ] 50,000 WEEKLY Meloxicam 7.5 Mg Tablet 7.5 Mg PO DAILY Proair Hfa Inhaler (Albuterol Sulfate) 8.5 Gm Hfa.aer.ad 1 Puff INH PRN Q6HRS PRN Lisinopril 20 Mg Tablet 20 Mg PO DAILY Docusate Sodium 100 Mg Capsule 100 Mg PO BID Pioglitazone Hcl 15 Mg Tablet 15 Mg PO DAILY Protonix (Pantoprazole Sodium) 40 Mg Granpkt.dr 40 Mg PO DAILY Lortab 7.5-325 mg Tablet (Hydrocodone/Acetaminophen) 1 Each Tablet 1 Tab PO PRN Q6HRS PRN Vital Signs Vital Signs Date Time Temp Pulse Resp B/P (MAP) Pulse Ox O2 Delivery O2 Flow Rate FiO2 02/23/19 11:00 97.9 54 16 135/59 (84) 97 Room Air 97.9 Labs Laboratory Tests Test 02/22/19 18:15 02/22/19 20:50 02/23/19 07:54 02/23/19 08:30 White Blood Count 6.3 x10^3/uL (4.0-11.0) 5.5 x10^3/uL (4.0-11.0) Red Blood Count 4.18 x10^6/uL (3.50-5.40) 3.73 x10^6/uL (3.50-5.40) Hemoglobin 14.0 g/dL (12.0-15.5) 12.3 g/dL (12.0-15.5) Hematocrit 40.7 % (36.0-47.0) 36.7 % (36.0-47.0) Mean Corpuscular Volume 98 fL (79-100) 98 fL (79-100) Mean Corpuscular Hemoglobin 34 pg (25-35) 33 pg (25-35) Mean Corpuscular Hemoglobin Concent 35 g/dL (31-37) 34 g/dL (31-37) Red Cell Distribution Width 12.4 % (11.5-14.5) 12.3 % (11.5-14.5) Platelet Count 132 x10^3/uL (140-400) 118 x10^3/uL (140-400) Neutrophils (%) (Auto) 86 % (31-73) 67 % (31-73) Lymphocytes (%) (Auto) 8 % (24-48) 23 % (24-48) Monocytes (%) (Auto) 6 % (0-9) 9 % (0-9) Eosinophils (%) (Auto) 0 % (0-3) 1 % (0-3) Basophils (%) (Auto) 0 % (0-3) 0 % (0-3) Neutrophils # (Auto) 5.4 x10^3uL (1.8-7.7) 3.7 x10^3uL (1.8-7.7) Lymphocytes # (Auto) 0.5 x10^3/uL (1.0-4.8) 1.2 x10^3/uL (1.0-4.8) Monocytes # (Auto) 0.4 x10^3/uL (0.0-1.1) 0.5 x10^3/uL (0.0-1.1) Eosinophils # (Auto) 0.0 x10^3/uL (0.0-0.7) 0.1 x10^3/uL (0.0-0.7) Basophils # (Auto) 0.0 x10^3/uL (0.0-0.2) 0.0 x10^3/uL (0.0-0.2) Segmented Neutrophils % 82 % (35-66) Band Neutrophils % 3 % (0-9) Lymphocytes % 13 % (24-48) Monocytes % 2 % (0-10) Platelet Estimate Decreased (ADEQUATE) Sodium Level 146 mmol/L (136-145) 146 mmol/L (136-145) Potassium Level 3.9 mmol/L (3.5-5.1) 3.8 mmol/L (3.5-5.1) Chloride Level 105 mmol/L (98-107) 108 mmol/L (98-107) Carbon Dioxide Level 31 mmol/L (21-32) 29 mmol/L (21-32) Anion Gap 10 (6-14) 9 (6-14) Blood Urea Nitrogen 33 mg/dL (7-20) 26 mg/dL (7-20) Creatinine 1.3 mg/dL (0.6-1.0) 1.0 mg/dL (0.6-1.0) Estimated GFR (Cockcroft-Gault) 39.7 53.8 BUN/Creatinine Ratio 25 (6-20) 26 (6-20) Glucose Level 218 mg/dL (70-99) 197 mg/dL (70-99) Calcium Level 8.9 mg/dL (8.5-10.1) 8.1 mg/dL (8.5-10.1) Magnesium Level 2.1 mg/dL (1.8-2.4) Total Bilirubin 0.5 mg/dL (0.2-1.0) 0.7 mg/dL (0.2-1.0) Aspartate Amino Transf (AST/SGOT) 15 U/L (15-37) 14 U/L (15-37) Alanine Aminotransferase (ALT/SGPT) 20 U/L (14-59) 18 U/L (14-59) Alkaline Phosphatase 111 U/L (46-116) 88 U/L (46-116) Troponin I Quantitative < 0.017 ng/mL (0.000-0.055) Total Protein 6.5 g/dL (6.4-8.2) 5.2 g/dL (6.4-8.2) Albumin 3.7 g/dL (3.4-5.0) 3.0 g/dL (3.4-5.0) Albumin/Globulin Ratio 1.3 (1.0-1.7) 1.4 (1.0-1.7) Urine Collection Type Unknown Urine Color Yellow Urine Clarity Clear Urine pH 6.5 Urine Specific [place] 1.015 Urine Protein Negative mg/dL (NEG-TRACE) Urine Glucose (UA) 250 mg/dL (NEG) Urine Ketones (Stick) Negative mg/dL (NEG) Urine Blood Negative (NEG) Urine Nitrite Negative (NEG) Urine Bilirubin Negative (NEG) Urine Urobilinogen Dipstick 1.0 mg/dL (0.2 mg/dL) Urine Leukocyte Esterase Negative (NEG) Urine RBC Rare /HPF (0-2) Urine WBC Occ /HPF (0-4) Urine Squamous Epithelial Cells Few /LPF Urine Bacteria Few /HPF (0-FEW) Urine Mucus Slight /LPF Glucose (Fingerstick) 186 mg/dL (70-99) Test 02/23/19 11:27 Glucose (Fingerstick) 141 mg/dL (70-99) Laboratory Tests Test 02/22/19 18:15 02/22/19 20:50 02/23/19 07:54 02/23/19 08:30 White Blood Count 6.3 x10^3/uL (4.0-11.0) 5.5 x10^3/uL (4.0-11.0) Red Blood Count 4.18 x10^6/uL (3.50-5.40) 3.73 x10^6/uL (3.50-5.40) Hemoglobin 14.0 g/dL (12.0-15.5) 12.3 g/dL (12.0-15.5) Hematocrit 40.7 % (36.0-47.0) 36.7 % (36.0-47.0) Mean Corpuscular Volume 98 fL (79-100) 98 fL (79-100) Mean Corpuscular Hemoglobin 34 pg (25-35) 33 pg (25-35) Mean Corpuscular Hemoglobin Concent 35 g/dL (31-37) 34 g/dL (31-37) Red Cell Distribution Width 12.4 % (11.5-14.5) 12.3 % (11.5-14.5) Platelet Count 132 x10^3/uL (140-400) 118 x10^3/uL (140-400) Neutrophils (%) (Auto) 86 % (31-73) 67 % (31-73) Lymphocytes (%) (Auto) 8 % (24-48) 23 % (24-48) Monocytes (%) (Auto) 6 % (0-9) 9 % (0-9) Eosinophils (%) (Auto) 0 % (0-3) 1 % (0-3) Basophils (%) (Auto) 0 % (0-3) 0 % (0-3) Neutrophils # (Auto) 5.4 x10^3uL (1.8-7.7) 3.7 x10^3uL (1.8-7.7) Lymphocytes # (Auto) 0.5 x10^3/uL (1.0-4.8) 1.2 x10^3/uL (1.0-4.8) Monocytes # (Auto) 0.4 x10^3/uL (0.0-1.1) 0.5 x10^3/uL (0.0-1.1) Eosinophils # (Auto) 0.0 x10^3/uL (0.0-0.7) 0.1 x10^3/uL (0.0-0.7) Basophils # (Auto) 0.0 x10^3/uL (0.0-0.2) 0.0 x10^3/uL (0.0-0.2) Segmented Neutrophils % 82 % (35-66) Band Neutrophils % 3 % (0-9) Lymphocytes % 13 % (24-48) Monocytes % 2 % (0-10) Platelet Estimate Decreased (ADEQUATE) Sodium Level 146 mmol/L (136-145) 146 mmol/L (136-145) Potassium Level 3.9 mmol/L (3.5-5.1) 3.8 mmol/L (3.5-5.1) Chloride Level 105 mmol/L (98-107) 108 mmol/L (98-107) Carbon Dioxide Level 31 mmol/L (21-32) 29 mmol/L (21-32) Anion Gap 10 (6-14) 9 (6-14) Blood Urea Nitrogen 33 mg/dL (7-20) 26 mg/dL (7-20) Creatinine 1.3 mg/dL (0.6-1.0) 1.0 mg/dL (0.6-1.0) Estimated GFR (Cockcroft-Gault) 39.7 53.8 BUN/Creatinine Ratio 25 (6-20) 26 (6-20) Glucose Level 218 mg/dL (70-99) 197 mg/dL (70-99) Calcium Level 8.9 mg/dL (8.5-10.1) 8.1 mg/dL (8.5-10.1) Magnesium Level 2.1 mg/dL (1.8-2.4) Total Bilirubin 0.5 mg/dL (0.2-1.0) 0.7 mg/dL (0.2-1.0) Aspartate Amino Transf (AST/SGOT) 15 U/L (15-37) 14 U/L (15-37) Alanine Aminotransferase (ALT/SGPT) 20 U/L (14-59) 18 U/L (14-59) Alkaline Phosphatase 111 U/L (46-116) 88 U/L (46-116) Troponin I Quantitative < 0.017 ng/mL (0.000-0.055) Total Protein 6.5 g/dL (6.4-8.2) 5.2 g/dL (6.4-8.2) Albumin 3.7 g/dL (3.4-5.0) 3.0 g/dL (3.4-5.0) Albumin/Globulin Ratio 1.3 (1.0-1.7) 1.4 (1.0-1.7) Urine Collection Type Unknown Urine Color Yellow Urine Clarity Clear Urine pH 6.5 Urine Specific [place] 1.015 Urine Protein Negative mg/dL (NEG-TRACE) Urine Glucose (UA) 250 mg/dL (NEG) Urine Ketones (Stick) Negative mg/dL (NEG) Urine Blood Negative (NEG) Urine Nitrite Negative (NEG) Urine Bilirubin Negative (NEG) Urine Urobilinogen Dipstick 1.0 mg/dL (0.2 mg/dL) Urine Leukocyte Esterase Negative (NEG) Urine RBC Rare /HPF (0-2) Urine WBC Occ /HPF (0-4) Urine Squamous Epithelial Cells Few /LPF Urine Bacteria Few /HPF (0-FEW) Urine Mucus Slight /LPF Glucose (Fingerstick) 186 mg/dL (70-99) Test 02/23/19 11:27 Glucose (Fingerstick) 141 mg/dL (70-99) Allergies Allergies Coded Allergies Type Severity Reaction Last Updated Verified Penicillins Allergy Intermediate 02/23/19 Yes morphine Allergy Intermediate 02/23/19 Yes prednisone Allergy Intermediate "STEROIDS" cause anxiety,hallucinations 02/23/19 Yes Disposition/Orders: D/C to Home BRYAN HARPER MD February 23, 2019 13:27
--- NOTE | 2019-02-23 13:30 | NUR ---
KLAUD[facility] following. Discussed with RN, pt is from home with daughter, Altagracia ([phone]). SW contacted Altagracia to discus PT/OT recommendation of home. Altagracia is in agreement and wants to take pt home. Altagracia denied any further need for SW.
--- NOTE | 2019-02-23 13:39 | NUR ---
Discharge Note: DESMOND ECHEVERRIA Discharge instructions and discharge home medications reviewed with Patient and a copy given. All questions have been answered and understanding verbalized. The following instructions and handouts were given: information about fall prevention at home, weakness, follow up appointments, medications, etc. Discontinued lines and drains: IV line in left AC removed, catheter tip intact. Patient discharged to home with self care with daughter, wheelchair used for mobility to discharge vehicle.
[2019-02-24 11:17] LABS: HEMOGLOBIN A1C 6.7 % (4.8-5.6)
== END 2019-02-23 13:39 | disposition home or self-care (01) | DRG 682 ==
LOC: ER 17:25 → 4 NORTH 19:45
PROVIDERS: ADMIT Family Medicine; ATTEND Family Medicine
DX: N17.9 Acute kidney failure, unspecified (principal); S72.001A Fracture of unspecified part of neck of right femur, initial encounter for closed fracture; E87.0 Hyperosmolality and hypernatremia; D69.6 Thrombocytopenia, unspecified; E11.9 Type 2 diabetes mellitus without complications; E78.5 Hyperlipidemia, unspecified; F17.210 Nicotine dependence, cigarettes, uncomplicated; H91.90 Unspecified hearing loss, unspecified ear; Z96.649 Presence of unspecified artificial hip joint; I10 Essential (primary) hypertension; J44.9 Chronic obstructive pulmonary disease, unspecified; K21.9 Gastro-esophageal reflux disease without esophagitis; Z85.828 Personal history of other malignant neoplasm of skin; Z86.718 Personal history of other venous thrombosis and embolism; Z99.3 Dependence on wheelchair; W18.39XA Other fall on same level, initial encounter; Y93.89 Activity, other specified; Y92.89 Other specified places as the place of occurrence of the external cause; Y99.8 Other external cause status
CPT/HCPCS: 36415; 71045; 73030; 73502; 80053; 81001; 82962; 83036; 83735; 84484; 85007; 85025; 93005; 93971; 96361; 96374; J1815; J3010; J7030; J7040; 99285-25

== ENCOUNTER → 2020-03-20 | Outpatient (CLI) | payer MEDICARE, OTHER ==
[~2020-03-20] MED LIST changes: +FENT1PAT90 TD; +FURO40TA4 PO; +OXYC1TAB22 PO
== END | disposition home or self-care (01) ==
LOC: LAB 11:49
PROVIDERS: ATTEND Orthopaedic Surgery
DX: Z11.59 Encounter for screening for other viral diseases (principal); S52.501A Unspecified fracture of the lower end of right radius, initial encounter for closed fracture; Y93.89 Activity, other specified; Y92.89 Other specified places as the place of occurrence of the external cause; Y99.8 Other external cause status; Z88.0 Allergy status to penicillin; Z88.6 Allergy status to analgesic agent
CPT/HCPCS: C9803; U0003; 36415

== ENCOUNTER 2020-03-22 06:12 | Day surgery (SDC) | payer MEDICARE, OTHER ==
[~2020-03-22] VITALS: Ht 161.3 cm; Wt 72.6 kg
[~2020-03-22 06:12] MED LIST changes: -OXYC1TAB22 PO
[2020-03-22] MEDS ORDERED: fentaNYL PF VIAL 100 MCG/2 ML VIAL ONE (06:28)
[2020-03-22] MEDS ORDERED: LIDOCAINE 2% PF 5 ML VIAL. ONE (06:28)
[2020-03-22] MEDS ORDERED: DEXAMETHASONE SOD PHOS 4 MG/ML VIAL ONE (06:28)
[2020-03-22] MEDS ORDERED: ONDANSETRON PF 4 MG/2 ML VIAL. ONE (06:28)
[2020-03-22] MEDS ORDERED: PROPOFOL 10 MG/ML (20ML) VIAL. IV ONE (06:28)
[2020-03-22] MEDS ORDERED: INSULIN LISPRO 100 UNIT/ML 3ML VIAL for OP,RR ONLY. SQ PRN (06:45)
[2020-03-22] MEDS ORDERED: OXYC1TAB22 PO (06:57)
[2020-03-22 07:00] LABS: BASO % 1 % (0-3); EOS # 0.1 x10^3/uL (0.0-0.7); EOS % 3 % (0-3); HEMATOCRIT 41.3 % (36.0-47.0); HEMOGLOBIN 14.2 g/dL (12.0-15.5); LYMPH # 1.1 x10^3/uL (1.0-4.8); LYMPH % 29 % (24-48); MEAN CORPUSCULAR HEMOGLOBIN 33 pg (25-35); MEAN CORPUSCULAR HGB CONC 34 g/dL (31-37); MEAN CORPUSCULAR VOLUME 97 fL (79-100); MONO # 0.3 x10^3/uL (0.0-1.1); MONO % 8 % (0-9); NEUT # 2.3 x10^3/uL (1.8-7.7); NEUT % 59 % (31-73); PLATELET COUNT 145 x10^3/uL (140-400); RED BLOOD COUNT 4.28 x10^6/uL (3.50-5.40); RED CELL DISTRIBUTION WIDTH 12.4 % (11.5-14.5); WHITE BLOOD COUNT 3.8 x10^3/uL (4.0-11.0)
[2020-03-22] MEDS ORDERED: fentaNYL PF VIAL 100 MCG/2 ML VIAL IV PRN (07:00)
[2020-03-22] MEDS ORDERED: PROCHLORPERAZINE 10 MG/2 ML VIAL. IV PRN (07:00)
[2020-03-22] MEDS ORDERED: IV RINGERS,LACTATED 1000ML 1,000 ML IV SCH (07:00)
[2020-03-22] MEDS ORDERED: ONDANSETRON PF 4 MG/2 ML VIAL. IV PRN (07:00)
[2020-03-22] MEDS ORDERED: BUPIVACAINE MPF 0.5% 30 ML VIAL. ONE (07:02)
[2020-03-22] MEDS ORDERED: MIDAZOLAM HCL/PF 2 MG/2 ML VIAL. ONE (07:05)
--- NOTE | 2020-03-22 07:05 | DISCH ---
DISCHARGE INSTRUCTIONS Condition on Discharge Condition on Discharge: Stable Activity After Discharge Activity Instructions for Disc: Other, see below (Fine motor use with right hand only no grasping or lifting, may eat write or type etc.) Lifting Instructions after Dis: No heavy lifting Weight Bearing Status after Di: Non weight bearing Diet after Discharge Diet after Discharge: Cardiac, Diabetic No Calorie Level Diet Texture: Regular Wound Incision Care Wound/Incision Care: Ice to area for comfort, Do not change dressing Checks after Discharge DC Comment: Initially substitute Percocet for hydrocodone, do not take both Contacting the DRVeronica after DC Call your doctor for: Concerns you may have Follow-Up Follow up with: Dr. Oglesby 10 days Treatment/Equipment after DC Adaptive Equipment Issued: None MARISSA OGLESBY MD Mar 22, 2020 07:05
[2020-03-22] MEDS ORDERED: ROPIVacaine 0.5% PF 20 ML VIAL. ONE (07:06)
[2020-03-22 07:08] LABS: CALCIUM 8.3 mg/dL (8.5-10.1); CREATININE 1.2 mg/dL (0.6-1.0); GFR 43.4; POTASSIUM 3.4 mmol/L (3.5-5.1)
--- NOTE | 2020-03-22 07:12 | EKG ---
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 Electronically Signed On 03-22-2020 16:46:54 CDT by [place]
[2020-03-22] MEDS ORDERED: hydrALAZINE 20 MG/ML VIAL. ONE (08:07)
--- NOTE | 2020-03-22 08:33 | PDOC4 ---
Operative Note Operative Note Date of surgery: 03/22/2020 Preoperative diagnosis displaced 2 part right intra-articular distal radius fracture Postoperative diagnosis: Same Operative procedure: Operative reduction internal fixation right 2 part intra- articular distal radius fracture Surgeon: [employer] Developer: Jack rivera Anesthesia: General Estimated blood loss: 5 cc Complications: None Operative indications: Please see my dictated orthopedic clinic evaluation for detailed operative indications and note that she does have a displaced intra- articular distal radius fracture we had talked about the malalignment and its consequences and the possible operative intervention of aligning and fixation of her fracture at the joint surface to minimize premature degenerative changes as well as pain and stiffness and lack of mechanical advantage. And the possible complications of infection nonhealing nerve or blood vessel damage medical or other anesthetic complications among others she and her daughter agreed to proceed with surgical evaluation and treatment. Operative text: Patient was identified procedure verified patient placed in the supine position on the operating table. After adequate amounts of general anes thesia were administered tourniquet was placed on the right upper arm and the right upper extremity prepped and draped in standard sterile fashion. After timeout was performed patient procedure identified and verified the right upper extremity was exsanguinated by Esmarch bandage tourniquet inflated to 250 mmHg a standard volar Hemal approach was carried out to the right distal radius and subperiosteal dissection was carried out satisfactory reduction carried out under multiple fluoroscopic views and a narrow short Neil DVR locking plate was placed and an initial shaft screw was placed in a sliding hole and micro adjustment carried out. Distal locking screws were placed under fluoroscopic guidance and check for adequate placement and no penetration into the joint surface remainder of the distal locking screws were then placed and an additional nonlocking shaft screw for terminal fixation. Reduction and hardware placement were checked under multiple fluoroscopic views thorough irrigation carried out normal saline solution closure accomplished with subcutaneous Vicryl subcuticular Monocryl Steri-Strips Mastisol a well-padded volar splint was placed fingers were noted to be warm pink following deflation of the tourniquet patient was returned to recovery room in stable condition having tolerated procedure well Jack rivera assisted in the prepping draping positioning retraction and closure MARISSA CAI MD Mar 22, 2020 08:33
[2020-03-22] MEDS ORDERED: SEVOFLURANE 31 TO 60 MINUTES. IH ONE (08:39)
[2020-03-22] MEDS: fentaNYL PF VIAL 100 MCG/2 ML VIAL IV PRN ×2 (09:11→09:24)
[2020-03-22] MEDS ORDERED: oxyCODONE/APAP 10/325 1 TAB TABLET PO PRN (09:30)
[2020-03-22] MEDS ORDERED: hydrALAZINE 20 MG/ML VIAL. IVP ONE (09:45)
[2020-03-22 10:10] VITALS: BP 144/66
== END 2020-03-22 10:30 | disposition home or self-care (01) ==
LOC: SURG 06:12
PROVIDERS: ATTEND Orthopaedic Surgery
DX: S52.571A Other intraarticular fracture of lower end of right radius, initial encounter for closed fracture (principal); I10 Essential (primary) hypertension; K21.9 Gastro-esophageal reflux disease without esophagitis; E11.9 Type 2 diabetes mellitus without complications; X58.XXXA Exposure to other specified factors, initial encounter; Y93.89 Activity, other specified; Y92.89 Other specified places as the place of occurrence of the external cause; Y99.8 Other external cause status; Z79.899 Other long term (current) drug therapy; Z87.891 Personal history of nicotine dependence; Z90.49 Acquired absence of other specified parts of digestive tract; Z96.651 Presence of right artificial knee joint; Z98.51 Tubal ligation status; Z85.828 Personal history of other malignant neoplasm of skin; Z79.84 Long term (current) use of oral hypoglycemic drugs
CPT/HCPCS: 25608; 36415; 76000; 80048; 82962; 85025; 93005; A7015; C1713; J0360; J0696; J1100; J1815; J2250; J2405; J2704; J2795; J3010; J3490

== ENCOUNTER 2020-11-08 09:39 | Inpatient (IN) | payer MEDICARE, OTHER ==
[~2020-11-08] VITALS: Ht 165.1 cm; Wt 72.7 kg
[2020-11-08] VITALS (10 sets, daily range): BP systolic 167–199; BP diastolic 82–104
[~2020-11-08 09:39] MED LIST changes: -LISI-334 PO; +LISI20TA18 PO; +OXYC1TAB22 PO
[2020-11-08] MEDS ORDERED: HYDROcodone/APAP 5/325MG 1 TAB TABLET PO ONE (10:00)
--- NOTE | 2020-11-08 10:07 | PHYS DOC ---
Past Medical History Past Medical History: Diabetes-Type II, Hypertension, Other Additional Past Medical Histor: PVC VALVE (CARDIAC), SKIN CANCER Past Surgical History: Cholecystectomy, Hip Replacement, Other Additional Past Surgical Histo: SKIN CANCER REMOVAL Smoking Status: Current Every Day Smoker Alcohol Use: None Drug Use: None General Adult EDM: Chief Complaint: ANKLE PROBLEM HPI: HPI: 79 yo F PMH COPD, HTN OA, lumbar DDD (on fentanyl patches and hydrocodone 7.5mg), presents to the ED brought in by her daughter and patient also with/is her DPOA, concern for right medial lateral ankle pain, after a witnessed fall 2 days ago. Daughter reports patient's foot was planted and she twisted and sat on her right leg. Patient has been slowly decompensating over time and has been bedbound for the last 6 months. Patient did not hit her head or lose consciousness On no AC. Pt very hard of hearing but alert to name/, daughter and her pain. Pt very poor historian. DPOA reports this is pts' normal mental status, no h/o dementia. Review of Systems: Review of Systems: Constitutional: Denies fever or chills. [] Eyes: Denies change in visual acuity. [] HENT: Denies nasal congestion or sore throat. [] Respiratory: Denies cough or shortness of breath. [] Cardiovascular: Denies chest pain or edema. [] GI: Denies abdominal pain, nausea, vomiting, bloody stools or diarrhea. [] : Denies dysuria or hematuria Musculoskeletal: Denies midline back pain or paraspinal back pain Integument: Denies rash or diaphoresis Neurologic: Denies headache, midline neck pain, focal weakness or sensory changes. [] Endocrine: Denies polyuria or polydipsia. [] Lymphatic: Denies swollen glands. [] Psychiatric: Denies depression or anxiety. [] Heart Score: Risk Factors: Risk Factors: DM, Current or recent (<one month) smoker, HTN, HLP, family history of CAD, obesity. Risk Scores: Score 0 - 3: 2.5% MACE over next 6 weeks - Discharge Home Score 4 - 6: 20.3% MACE over next 6 weeks - Admit for Clinical Observation Score 7 - 10: 72.7% MACE over next 6 weeks - Early Invasive Strategies Allergies: Allergies: Allergies Coded Allergies Type Severity Reaction Last Updated Verified morphine Allergy Intermediate 03/22/20 Yes prednisone Allergy Intermediate "STEROIDS" cause anxiety,hallucinations 03/22/20 Yes Penicillins Adverse Reaction Intermediate headache 03/22/20 Yes Physical Exam: PE: Constitutional: Well developed, well nourished, no acute distress, non-toxic appearance. HENT: Normocephalic, atraumatic, Eyes: EOMI, conjunctiva normal, no discharge. Neck: Normal range of motion, supple, Cardiovascular: S1/2 present, regular rhythm Lungs & Thorax: Speaking in full sentences, bilateral equal chest rise, no ta chypnea or increased work of breathing Abdomen: soft, no tenderness, Skin: Warm, dry, no erythema, no rash. [] Back: No midline tenderness or step-offs, no CVA tenderness, no pelvic hip tenderness Extremities: No gross deformities of both legs in comparison, no edema, significant tenderness to palpation over her right lateral and medial malleoli, no pain over fibular head or knee able to bend the knee, no plantar ecchymosis sign, no pain over metatarsals or phalanges Neurologic: Alert, normal motor function, normal sensory function, no focal deficits noted. [] Psychologic: Affect normal, judgement normal, mood normal. [] EKG: EKG: Sinus rhythm at 74 bpm, no axis deviation, QTC 476, T wave inversions diffusely in 1, 2, 3, aVF, V3 through V6 and aVL no ST elevations or ST depressions Radiology/Procedures: Radiology/Procedures: IMAGING REPORT Signed PATIENT: DESMOND ECHEVERRIA ACCOUNT: [id number] : 1940 LOCATION: ER AGE: 79 SEX: F EXAM STATUS: REG ER ORD. PHYSICIAN: MIRIAM SOARES DO REASON: fall? PROCEDURE: CT HEAD AND CERVICAL SPINE WO Examination: CT head, cervical spine without contrast. CT HEAD INDICATION: Fall: COMPARISON: None Available. Exposure: One or more of the following individualized dose reduction techniques were utilized for this examination: 1. Automated exposure control 2. Adjustment of the mA and/or kV according to patient size 3. Use of iterative r econstruction technique TECHNIQUE: 5 mm contiguous axial images were obtained from the skull base to the vertex in both bone and soft tissue algorithm. FINDINGS: Moderate bilateral periventricular white matter hypodensities likely chronic small vessel ischemic disease. No evidence of acute intracranial hemorrhage. No extra-axial fluid collections. No mass effect or midline shift. Ventricular size is appropriate. Basal cisterns are patent. No fractures identified.Salgado-white differentiation is preserved.Globes and orbits are within normal limits. Paranasal sinuses and mastoid air cells are clear. IMPRESSION: No acute intracranial findings. CT CERVICAL SPINE INDICATION: Fall: COMPARISON: None Available. Technique: 2.5 mm contiguous axial images were obtained from the skull base through the cervicothoracic junction in both bone and soft tissue algorithm. Additional sagittal and coronal reconstructions were also performed. FINDINGS: Vertebral body height and alignment are maintained. Cervical lordosis is preserved. The lateral masses of C1 are aligned upon C2. No fractures identified. The bony canal is patent throughout. Moderate intervertebral disc height loss identified in the cervical spine likely degenerative changes. There is mild compression change of T1 vertebral body, age indeterminate. The paraspinous soft tissues are unremarkable. Visualized intracranial contents are unremarkable. Lung apices are clear. Small hypodensities identified in the thyroid gland with the largest measuring 1.8 cm in the left lobe of the thyroid gland. IMPRESSION: 1. No acute intracranial findings. 2. No acute fracture of the cervical spine. Correlate clinically. 3. Mild compression change of T1 vertebral body, age indeterminate. 4. Thyroid nodules with the largest measuring 1.8 cm in the left lobe. Follow- up ultrasound thyroid is recommended. Electronically signed by: Tod Hobbs MD (11/08/2020 11:43 AM) [id number] DICTATED and SIGNED BY: TOD HOBBS MD DATE: 11/08/20 [id number] 0 IMAGING REPORT Signed PATIENT: DESMOND ECHEVERRIA ACCOUNT: [id number] : 1940 LOCATION: ER AGE: 79 SEX: F EXAM STATUS: REG ER ORD. PHYSICIAN: MIRIAM SOARES DO REASON: fall, TIBIA FRACTURE...PATIENT CONFUSED AND COMBATIVE PROCEDURE: CHEST AP ONLY XR CHEST 1V History: Reason: fall, TIBIA FRACTURE...PATIENT CONFUSED AND COMBATIVE / Spl. Instructions: / History: Comparison: None. Findings: Degraded evaluation due to positioning and patient's combativeness. Patchy left basilar opacity. No pleural effusion. Normal heart size. No pneumothorax. Postoperative changes right axilla. Clinical humeral DJD with potential right calcified intra-articular loose body. Surgical clips right upper quadrant. Impression: 1. Patchy left basilar opacity, likely atelectasis. Electronically signed by: Shin Toure DO (11/08/2020 11:34 AM) [id number] DICTATED and SIGNED BY: SHIN TOURE DO DATE: 11/08/20 [id number] 0 IMAGING REPORT Signed PATIENT: DESMOND ECHEVERRIA ACCOUNT: [id number] : 1940 LOCATION: ER AGE: 79 SEX: F EXAM STATUS: REG ER ORD. PHYSICIAN: MIRIAM SOARES DO REASON: ankle pain PROCEDURE: TIBIA FIBULA RIGHT XR EXAM OF ANKLE_RIGHT 3VIEWS, XR FOOT_RIGHT 3 VIEWS, XR RT TIBIA+FIBULA History: Reason: ankle pain / Spl. Instructions: / History: Technique: 2 views right tibia and fibula. 3 views right ankle and 3 views right foot Comparison: None. Findings: Acute spiral mid to distal tibial shaft fracture. There is adjacent soft tissue swelling. Vascular calcifications. Mild knee DJD. Acute oblique distal fibular fracture. There is adjacent soft tissue swelling. Symmetric ankle mortise. Normal alignment of the foot. Osteopenia. Mild first MTP DJD. Plantar calcaneal spur. Impression: 1. Acute spiral mid to distal tibial shaft fracture. 2. Acute oblique distal fibular fracture. Electronically signed by: Shin Toure DO (11/08/2020 11:45 AM) [id number] DICTATED and SIGNED BY: SHIN TOURE DO DATE: 11/08/20 [id number] 0 IMAGING REPORT Signed PATIENT: DESMOND ECHEVERRIA ACCOUNT: [id number] : 1940 LOCATION: ER AGE: 79 SEX: F EXAM STATUS: REG ER ORD. PHYSICIAN: MIRIAM SOARES DO REASON: fallM TIBIA FRACTURE....PATIENT CONFUSED AND COMBATIVE PROCEDURE: PELVIS XR PELVIS 1-2V History: Reason: fallM TIBIA FRACTURE....PATIENT CONFUSED AND COMBATIVE / Spl. Instructions: / History: Technique: AP view the pelvis. Comparison: March 20, 2019 Findings: Bilateral hip arthroplasties. No dislocation on AP view. No acute fracture. Lower lumbar spondylosis. Vascular calcifications. Osteopenia. Large amount stool within rectum. Pubic symphysis DJD, unchanged. Bilateral sacroiliac DJD, unchanged. Impression: 1. No acute osseous abnormality. 2. Bilateral hip arthroplasties. 3. Large amount stool within the within the rectum. Electronically signed by: Shin Toure DO (11/08/2020 11:50 AM) [id number] DICTATED and SIGNED BY: SHIN TOURE DO DATE: 11/08/20 [id number] 0 Course & Med Decision Making: Course & Med Decision Making Pertinent Labs and Imaging studies reviewed. (See chart for details) Concern for fall 2 days ago in the setting of UTI-per daughter it as her baseline mental status. Patient has a closed, slightly displaced left distal tibia fracture and nondisplaced right distal fibula fracture. Patient also has hypokalemia 2.7-oral placement started in ED. I spoke to Dr. Oglesby who is present in ED and consented patient for surgery. Patient will be admitted to Dr. Dave for further medical management. Patient started on antibiotics. All of DPOA's questions were answered/she agreed with this plan and patient was stable at time of admission. I have spoken with the patient and/or caregivers. I have explained the patien t's condition, diagnosis and treatment plan based on the information available to me at this time. I have answered the patient's and/or caregivers questions and answered any concerns. The patient and/or caregivers have as good an understanding of the patient's diagnosis, condition and treatment plan as can be expected at this point. The patient has been stabilized within the capability of the emergency department. The patient will be transported for further care and management or will be moved to an observation or inpatient service. I have communicated with the staff or medical practitioner taking over this patient's care. Oleksandron Disclaimer: Shaila Disclaimer: This electronic medical record was generated, in whole or in part, using a voice recognition dictation system. Departure Departure Impression: Primary Impression: Left tibial fracture Additional Impressions: Hypokalemia Fall UTI (urinary tract infection) Fracture of distal fibula Disposition: 09 ADMITTED INPT THIS HOSP Admitting Physician: HIMJess (Dr. Dave) Condition: STABLE Referrals: VIKAS SUNG MD (PCP) MIRIAM SOARES DO Nov 08, 2020 10:07
[2020-11-08 10:19] LABS: BILIRUBIN,URINE NEGATIVE (NEG); CLARITY,URINE CLEAR; COLOR,URINE YELLOW; NITRITE,URINE POSITIVE (NEG); PH,URINE 5.5 (<5.0-8.0); PROTEIN,URINE NEGATIVE (NEG-TRACE)
[2020-11-08 10:38] LABS: BASO % 0 % (0-3); EOS # 0.1 x10^3/uL (0.0-0.7); EOS % 2 % (0-3); HEMATOCRIT 39.2 % (36.0-47.0); HEMOGLOBIN 13.7 g/dL (12.0-15.5); LYMPH # 0.9 x10^3/uL (1.0-4.8); LYMPH % 16 % (24-48); MEAN CORPUSCULAR HEMOGLOBIN 34 pg (25-35); MEAN CORPUSCULAR HGB CONC 35 g/dL (31-37); MEAN CORPUSCULAR VOLUME 97 fL (79-100); MONO # 0.3 x10^3/uL (0.0-1.1); MONO % 6 % (0-9); NEUT # 4.3 x10^3/uL (1.8-7.7); NEUT % 77 % (31-73); PLATELET COUNT 139 x10^3/uL (140-400); RED BLOOD COUNT 4.05 x10^6/uL (3.50-5.40); RED CELL DISTRIBUTION WIDTH 13.3 % (11.5-14.5); WHITE BLOOD COUNT 5.6 x10^3/uL (4.0-11.0)
[2020-11-08 10:41] LABS: HYALINE CASTS, URINE MODERATE /HPF
[2020-11-08 10:42] LABS: BACTERIA,URINE MANY /HPF (0-FEW); RBC,URINE 0 /HPF (0-2); WBC,URINE >40 /HPF (0-4)
[2020-11-08] MEDS ORDERED: HYDROmorphone 2 MG/ML VIAL IVP ONE ×2 (10:45→13:00)
[2020-11-08 10:55] LABS: ALBUMIN 3.5 g/dL (3.4-5.0); ALBUMIN/GLOBULIN RATIO 1.2 (1.0-1.7); CALCIUM 9.1 mg/dL (8.5-10.1); CREATININE 1.1 mg/dL (0.6-1.0); TOTAL PROTEIN 6.5 g/dL (6.4-8.2)
[2020-11-08 10:58] LABS: POTASSIUM 2.7 mmol/L (3.5-5.1)
[2020-11-08] MEDS ORDERED: POTASSIUM BICARB 20 MEQ EFFERVESCENT TABLET. PO ONE (11:00)
--- NOTE | 2020-11-08 11:36 | RAD ---
XR CHEST 1V History: Reason: fall, TIBIA FRACTURE...PATIENT CONFUSED AND COMBATIVE / Spl. Instructions: / Histor y: Comparison: None. Findings: Degraded evaluation due to positioning and patient's combativeness. Patchy left basilar opacity. No p leural effusion. Normal heart size. No pneumothorax. Postoperative changes right axilla. Clinical hum eral DJD with potential right calcified intra-articular loose body. Surgical clips right upper quadra nt. Impression: 1. Patchy left basilar opacity, likely atelectasis. Electronically signed by: Shin Toure DO (11/08/2020 11:34 AM) [id number]
--- NOTE | 2020-11-08 11:45 | RAD ---
Examination: CT head, cervical spine without contrast. CT HEAD INDICATION: Fall: COMPARISON: None Available. Exposure: One or more of the following individualized dose reduction techniques were utilized for thi s examination: 1. Automated exposure control 2. Adjustment of the mA and/or kV according to patient size 3. Use of iterative reconstruction technique TECHNIQUE: 5 mm contiguous axial images were obtained from the skull base to the vertex in both bone and soft tissue algorithm. FINDINGS: Moderate bilateral periventricular white matter hypodensities likely chronic small vessel ischemic di sease. No evidence of acute intracranial hemorrhage. No extra-axial fluid collections. No mass effect or midline shift. Ventricular size is appropriate. Basal cisterns are patent. No fractures identified.Salgado-white differentiation is preserved.Globes and orbits are within normal l imits. Paranasal sinuses and mastoid air cells are clear. IMPRESSION: No acute intracranial findings. CT CERVICAL SPINE INDICATION: Fall: COMPARISON: None Available. Technique: 2.5 mm contiguous axial images were obtained from the skull base through the cervicothorac ic junction in both bone and soft tissue algorithm. Additional sagittal and coronal reconstructions were also performed. FINDINGS: Vertebral body height and alignment are maintained. Cervical lordosis is preserved. The l ateral masses of C1 are aligned upon C2. No fractures identified. The bony canal is patent throughout. Moderate intervertebral disc height loss identified in the cervical spine likely degenerative changes . There is mild compression change of T1 vertebral body, age indeterminate. The paraspinous soft tissues are unremarkable. Visualized intracranial contents are unremarkable. L adam apices are clear. Small hypodensities identified in the thyroid gland with the largest measuring 1.8 cm in the left lobe of the thyroid gland. IMPRESSION: 1. No acute intracranial findings. 2. No acute fracture of the cervical spine. Correlate clinically. 3. Mild compression change of T1 vertebral body, age indeterminate. 4. Thyroid nodules with the largest measuring 1.8 cm in the left lobe. Follow-up ultrasound thyroid is recommended. Electronically signed by: Tod Hobbs MD (11/08/2020 11:43 AM) [id number]
--- NOTE | 2020-11-08 11:48 | RAD ---
XR EXAM OF ANKLE_RIGHT 3VIEWS, XR FOOT_RIGHT 3 VIEWS, XR RT TIBIA+FIBULA History: Reason: ankle pain / Spl. Instructions: / History: Technique: 2 views right tibia and fibula. 3 views right ankle and 3 views right foot Comparison: None. Findings: Acute spiral mid to distal tibial shaft fracture. There is adjacent soft tissue swelling. Vascular ca lcifications. Mild knee DJD. Acute oblique distal fibular fracture. There is adjacent soft tissue swelling. Symmetric ankle mortis e. Normal alignment of the foot. Osteopenia. Mild first MTP DJD. Plantar calcaneal spur. Impression: 1. Acute spiral mid to distal tibial shaft fracture. 2. Acute oblique distal fibular fracture. Electronically signed by: Shin Toure DO (11/08/2020 11:45 AM) [id number]
--- NOTE | 2020-11-08 11:53 | RAD ---
XR PELVIS 1-2V History: Reason: fallM TIBIA FRACTURE....PATIENT CONFUSED AND COMBATIVE / Spl. Instructions: / Histo ry: Technique: AP view the pelvis. Comparison: March 20, 2019 Findings: Bilateral hip arthroplasties. No dislocation on AP view. No acute fracture. Lower lumbar spondylosis. Vascular calcifications. Osteopenia. Large amount stool within rectum. Pubic symphysis DJD, unchange d. Bilateral sacroiliac DJD, unchanged. Impression: 1. No acute osseous abnormality. 2. Bilateral hip arthroplasties. 3. Large amount stool within the within the rectum. Electronically signed by: Shin Toure DO (11/08/2020 11:50 AM) [id number]
[2020-11-08] MEDS ORDERED: cefTRIAXone IV Push 1 GM VIAL. IVP ONE (12:00)
[2020-11-08] MEDS ORDERED: IV NORMAL SALINE 1000ML BAG 1,000 ML IV SCH (13:30)
[2020-11-08] MEDS ORDERED: ACETAMINOPHEN 325 MG TABLET. PO PRN (13:30)
[2020-11-08] MEDS ORDERED: ONDANSETRON PF 4 MG/2 ML VIAL. IV PRN ×2 (13:30→14:15)
--- NOTE | 2020-11-08 14:00 | PDOC1 ---
History and Physical Date of Admission Date of Admission DATE: 11/08/20 TIME: 13:58 Identification/Chief Complaint Chief Complaint DICTATED, SUPPLEMENT TO DICTATION Past Medical History Past Medical History Past Medical History Past Medical History: Diabetes-Type II, Hypertension, Other Additional Past Medical Histor: PVC VALVE (CARDIAC), SKIN CANCER Past Surgical History: Cholecystectomy, Hip Replacement, Other Additional Past Surgical Histo: SKIN CANCER REMOVAL Smoking Status: Current Every Day Smoker Alcohol Use: None Drug Use: None FHX COPD Past Medical History Cardiovascular: HTN, Hyperlipidemia Pulmonary: COPD GI: GERD Heme/Onc: No pertinent hx Hepatobiliary: No pertinent hx Psych: No pertinent hx Rheumatologic: No pertinent hx Infectious disease: No pertinent hx ENT: No pertinent hx Renal/: No pertinent hx Endocrine: Diabetes Dermatology: No pertinent hx Past Surgical History Past Surgical History: Cholecystectomy, Tubal Ligation, Other (Abscess I&Ds) Family History Family History: Cancer, Heart Disease Social History Smoke: <1 pack per day ALCOHOL: none Drugs: None Cardiovascular: HTN, Hyperlipidemia Pulmonary: COPD GI: GERD Heme/Onc: No pertinent hx Hepatobiliary: No pertinent hx Psych: No pertinent hx Rheumatologic: No pertinent hx Infectious disease: No pertinent hx Renal/: No pertinent hx Endocrine: Diabetes Past Surgical History Past Surgical History: Cholecystectomy, Tubal Ligation, Other Family History Family History: Cancer, Heart Disease, High Cholestrol Social History Smoke: No ALCOHOL: none Drugs: None Current Problem List Problem List Problems Medical Problems: (1) Fracture of distal fibula Status: Acute (2) Hypokalemia Status: Acute (3) Left tibial fracture Status: Acute (4) UTI (urinary tract infection) Status: Acute Current Medications Current Medications Current Medications Acetaminophen/ Hydrocodone Bitart (Lortab 5/325) 1 tab 1X ONCE PO ; Start 11/08/20 at 10:00; Stop 11/08/20 at 10:33; Status DC Hydromorphone HCl (Dilaudid) 0.5 mg 1X ONCE IVP Last administered on 11/08/20at 10:40; Start 11/08/20 at 10:45; Stop 11/08/20 at 10:46; Status DC Potassium Bicarbonate (Potassium Effervescent Tablet) 40 meq 1X ONCE PO Last administered on 11/08/20at 11:26; Start 11/08/20 at 11:00; Stop 11/08/20 at 11:02; Status DC Ceftriaxone Sodium (Rocephin) 1 gm 1X ONCE IVP Last administered on 11/08/20at 12:39; Start 11/08/20 at 12:00; Stop 11/08/20 at 12:01; Status DC Hydromorphone HCl (Dilaudid) 0.5 mg PRN Q2HR ONCE IVP Last administered on 11/08/20at 12:53; Start 11/08/20 at 13:00; Stop 11/08/20 at 13:01; Status DC Ondansetron HCl (Zofran) 4 mg PRN Q8HRS PRN IV NAUSEA/VOMITING; Start 11/08/20 at 13:30; Stop 11/09/20 at 13:29 Fentanyl Citrate (Fentanyl 2ml Vial) 50 mcg PRN Q1HR PRN IV PAIN; Start 11/08/20 at 13:30; Stop 11/09/20 at 13:29 Sodium Chloride 1,000 ml @ 100 mls/hr Q10H IV Last administered on 11/08/20at 13:57; Start 11/08/20 at 13:30; Stop 11/09/20 at 13:29 Acetaminophen (Tylenol) 650 mg PRN Q4HRS PRN PO FEVER > 100.3'F; Start 11/08/20 at 13:30; Stop 11/09/20 at 13:29 Active Scripts Active Percocet 10-325 Mg Tablet (Oxycodone/Acetaminophen) 1 Each Tablet 1 Tab PO PRN Q4HRS PRN Reported DURAGESIC 25mcg/hr (Fentanyl) 1 Each Patch.td72 1 Patch TD Q72H Furosemide 40 Mg Tablet 40 Mg PO DAILY Meloxicam 7.5 Mg Tablet 15 Mg PO DAILY Proair Hfa Inhaler (Albuterol Sulfate) 8.5 Gm Hfa.aer.ad 1 Puff INH PRN Q6HRS PRN Lisinopril 20 Mg Tablet 20 Mg PO DAILY Docusate Sodium 100 Mg Capsule 100 Mg PO BID Pioglitazone Hcl 15 Mg Tablet 15 Mg PO DAILY Protonix Packet (Pantoprazole Sodium) 40 Mg Granpkt.dr 40 Mg PO DAILY Allergies Allergies: Coded Allergies: morphine (Verified Allergy, Intermediate, 03/22/20) prednisone (Verified Allergy, Intermediate, "STEROIDS" cause anxiety,hallucinations, 03/22/20) Penicillins (Verified Adverse Reaction, Intermediate, headache, 03/22/20) Physical Exam General: mild distress HEENT: Atraumatic Lungs: Clear to auscultation, Normal air movement Heart: RRR, no gallops Breasts: Not examined Abdomen: Normal bowel sounds, Soft Rectal Exam: not examined PELVIC: Examination not indicated Extremities: No cyanosis Psych/Mental Status: Mood NL Vitals Vitals Vital Signs Date Time Temp Pulse Resp B/P (MAP) Pulse Ox O2 Delivery O2 Flow Rate FiO2 11/08/20 13:26 168/82 (110) 98 Room Air 11/08/20 12:53 16 11/08/20 10:40 80 11/08/20 09:39 98.2 98.2 Labs Labs Laboratory Tests Test 11/08/20 10:02 11/08/20 10:26 11/08/20 11:27 Urine Collection Type Unknown Urine Color Yellow Urine Clarity Clear Urine pH 5.5 (<5.0-8.0) Urine Specific [place] 1.015 (1.000-1.030) Urine Protein Negative mg/dL (NEG-TRACE) Urine Glucose (UA) Negative mg/dL (NEG) Urine Ketones (Stick) Negative mg/dL (NEG) Urine Blood Negative (NEG) Urine Nitrite Positive (NEG) Urine Bilirubin Negative (NEG) Urine Urobilinogen Dipstick 1.0 mg/dL (0.2 mg/dL) Urine Leukocyte Esterase Large (NEG) Urine RBC 0 /HPF (0-2) Urine WBC >40 /HPF (0-4) Urine Squamous Epithelial Cells Few /LPF Urine Bacteria Many /HPF (0-FEW) Urine Hyaline Casts Moderate /HPF White Blood Count 5.6 x10^3/uL (4.0-11.0) Red Blood Count 4.05 x10^6/uL (3.50-5.40) Hemoglobin 13.7 g/dL (12.0-15.5) Hematocrit 39.2 % (36.0-47.0) Mean Corpuscular Volume 97 fL (79-100) Mean Corpuscular Hemoglobin 34 pg (25-35) Mean Corpuscular Hemoglobin Concent 35 g/dL (31-37) Red Cell Distribution Width 13.3 % (11.5-14.5) Platelet Count 139 x10^3/uL (140-400) Neutrophils (%) (Auto) 77 % (31-73) Lymphocytes (%) (Auto) 16 % (24-48) Monocytes (%) (Auto) 6 % (0-9) Eosinophils (%) (Auto) 2 % (0-3) Basophils (%) (Auto) 0 % (0-3) Neutrophils # (Auto) 4.3 x10^3/uL (1.8-7.7) Lymphocytes # (Auto) 0.9 x10^3/uL (1.0-4.8) Monocytes # (Auto) 0.3 x10^3/uL (0.0-1.1) Eosinophils # (Auto) 0.1 x10^3/uL (0.0-0.7) Basophils # (Auto) 0.0 x10^3/uL (0.0-0.2) Sodium Level 144 mmol/L (136-145) Potassium Level 2.7 mmol/L (3.5-5.1) Chloride Level 103 mmol/L (98-107) Carbon Dioxide Level 36 mmol/L (21-32) Anion Gap 5 (6-14) Blood Urea Nitrogen 22 mg/dL (7-20) Creatinine 1.1 mg/dL (0.6-1.0) Estimated GFR (Cockcroft-Gault) 48.0 BUN/Creatinine Ratio 20 (6-20) Glucose Level 157 mg/dL (70-99) Calcium Level 9.1 mg/dL (8.5-10.1) Total Bilirubin 1.0 mg/dL (0.2-1.0) Aspartate Amino Transf (AST/SGOT) 20 U/L (15-37) Alanine Aminotransferase (ALT/SGPT) 29 U/L (14-59) Alkaline Phosphatase 72 U/L (46-116) Troponin I Quantitative < 0.017 ng/mL (0.000-0.055) Total Protein 6.5 g/dL (6.4-8.2) Albumin 3.5 g/dL (3.4-5.0) Albumin/Globulin Ratio 1.2 (1.0-1.7) SARS-CoV-2 Antigen (Rapid) Negative (NEGATIVE) Laboratory Tests Test 11/08/20 10:02 11/08/20 10:26 11/08/20 11:27 Urine Collection Type Unknown Urine Color Yellow Urine Clarity Clear Urine pH 5.5 (<5.0-8.0) Urine Specific [place] 1.015 (1.000-1.030) Urine Protein Negative mg/dL (NEG-TRACE) Urine Glucose (UA) Negative mg/dL (NEG) Urine Ketones (Stick) Negative mg/dL (NEG) Urine Blood Negative (NEG) Urine Nitrite Positive (NEG) Urine Bilirubin Negative (NEG) Urine Urobilinogen Dipstick 1.0 mg/dL (0.2 mg/dL) Urine Leukocyte Esterase Large (NEG) Urine RBC 0 /HPF (0-2) Urine WBC >40 /HPF (0-4) Urine Squamous Epithelial Cells Few /LPF Urine Bacteria Many /HPF (0-FEW) Urine Hyaline Casts Moderate /HPF White Blood Count 5.6 x10^3/uL (4.0-11.0) Red Blood Count 4.05 x10^6/uL (3.50-5.40) Hemoglobin 13.7 g/dL (12.0-15.5) Hematocrit 39.2 % (36.0-47.0) Mean Corpuscular Volume 97 fL (79-100) Mean Corpuscular Hemoglobin 34 pg (25-35) Mean Corpuscular Hemoglobin Concent 35 g/dL (31-37) Red Cell Distribution Width 13.3 % (11.5-14.5) Platelet Count 139 x10^3/uL (140-400) Neutrophils (%) (Auto) 77 % (31-73) Lymphocytes (%) (Auto) 16 % (24-48) Monocytes (%) (Auto) 6 % (0-9) Eosinophils (%) (Auto) 2 % (0-3) Basophils (%) (Auto) 0 % (0-3) Neutrophils # (Auto) 4.3 x10^3/uL (1.8-7.7) Lymphocytes # (Auto) 0.9 x10^3/uL (1.0-4.8) Monocytes # (Auto) 0.3 x10^3/uL (0.0-1.1) Eosinophils # (Auto) 0.1 x10^3/uL (0.0-0.7) Basophils # (Auto) 0.0 x10^3/uL (0.0-0.2) Sodium Level 144 mmol/L (136-145) Potassium Level 2.7 mmol/L (3.5-5.1) Chloride Level 103 mmol/L (98-107) Carbon Dioxide Level 36 mmol/L (21-32) Anion Gap 5 (6-14) Blood Urea Nitrogen 22 mg/dL (7-20) Creatinine 1.1 mg/dL (0.6-1.0) Estimated GFR (Cockcroft-Gault) 48.0 BUN/Creatinine Ratio 20 (6-20) Glucose Level 157 mg/dL (70-99) Calcium Level 9.1 mg/dL (8.5-10.1) Total Bilirubin 1.0 mg/dL (0.2-1.0) Aspartate Amino Transf (AST/SGOT) 20 U/L (15-37) Alanine Aminotransferase (ALT/SGPT) 29 U/L (14-59) Alkaline Phosphatase 72 U/L (46-116) Troponin I Quantitative < 0.017 ng/mL (0.000-0.055) Total Protein 6.5 g/dL (6.4-8.2) Albumin 3.5 g/dL (3.4-5.0) Albumin/Globulin Ratio 1.2 (1.0-1.7) SARS-CoV-2 Antigen (Rapid) Negative (NEGATIVE) Images Images PATIENT: DESMOND ECHEVERRIA ACCOUNT: [id number] : 1940 LOCATION: ER AGE: 79 SEX: F EXAM STATUS: REG ER ORD. PHYSICIAN: MIRIAM SOARES DO REASON: ankle pain PROCEDURE: TIBIA FIBULA RIGHT XR EXAM OF ANKLE_RIGHT 3VIEWS, XR FOOT_RIGHT 3 VIEWS, XR RT TIBIA+FIBULA History: Reason: ankle pain / Spl. Instructions: / History: Technique: 2 views right tibia and fibula. 3 views right ankle and 3 views right foot Comparison: None. Findings: Acute spiral mid to distal tibial shaft fracture. There is adjacent soft tissue swelling. Vascular calcifications. Mild knee DJD. Acute oblique distal fibular fracture. There is adjacent soft tissue swelling. Symmetric ankle mortise. Normal alignment of the foot. Osteopenia. Mild first MTP DJD. Plantar calcaneal spur. Impression: 1. Acute spiral mid to distal tibial shaft fracture. 2. Acute oblique distal fibular fracture. Electronically signed by: Shin Toure DO (11/08/2020 11:45 AM) [id number] DICTATED and SIGNED BY: SHIN TOURE DO DATE: 11/08/[id number] HEAD INDICATION: Fall: COMPARISON: None Available. Exposure: One or more of the following individualized dose reduction techniques were utilized for this examination: 1. Automated exposure control 2. Adjustment of the mA and/or kV according to patient size 3. Use of iterative reconstruction technique TECHNIQUE: 5 mm contiguous axial images were obtained from the skull base to the vertex in both bone and soft tissue algorithm. FINDINGS: Moderate bilateral periventricular white matter hypodensities likely chronic small vessel ischemic disease. No evidence of acute intracranial hemorrhage. No extra-axial fluid collections. No mass effect or midline shift. Ventricular size is appropriate. Basal cisterns are patent. No fractures identified.Salgado-white differentiation is preserved.Globes and orbits are within normal limits. Paranasal sinuses and mastoid air cells are clear. IMPRESSION: No acute intracranial findings. CT CERVICAL SPINE INDICATION: Fall: COMPARISON: None Available. Technique: 2.5 mm contiguous axial images were obtained from the skull base through the cervicothoracic junction in both bone and soft tissue algorithm. Additional sagittal and coronal reconstructions were also performed. FINDINGS: Vertebral body height and alignment are maintained. Cervical lordosis is preserved. The lateral masses of C1 are aligned upon C2. No fractures identified. The bony canal is patent throughout. Moderate intervertebral disc height loss identified in the cervical spine likely degenerative changes. There is mild compression change of T1 vertebral body, age indeterminate. The paraspinous soft tissues are unremarkable. Visualized intracranial contents are unremarkable. Lung apices are clear. Small hypodensities identified in the thyroid gland with the largest measuring 1.8 cm in the left lobe of the thyroid gland. IMPRESSION: 1. No acute intracranial findings. 2. No acute fracture of the cervical spine. Correlate clinically. 3. Mild compression change of T1 vertebral body, age indeterminate. 4. Thyroid nodules with the largest measuring 1.8 cm in the left lobe. Follow- up ultrasound thyroid is recommended. Electronically signed by: Tod Farrar MD (11/08/2020 11:43 AM) [id number] DICTATED and SIGNED BY: TOD FARRAR MD VTE Prophylaxis Ordered VTE Prophylaxis Devices: No VTE Pharmacological Prophylaxi: No Assessment/Plan Assessment/Plan DICTATED Impression: Left tibial fracture Acute spiral mid to distal tibial shaft fracture. There is adjacent soft tissue swelling. Vascular calcifications. Mild knee DJD. Acute oblique distal fibular fracture Patchy left basilar opacity, likely atelectasis. Hypokalemia Fall, MECHANICAL UTI (urinary tract infection) Fracture of distal fibula COGNITIVE DECLINE, MODERATE displaced 2 part right intra-articular distal radius fracture 06-20 Thyroid nodules with the largest measuring 1.8 cm in the left lobe. Follow-up ultrasound thyroid is recommended. CAN BE OUT PATIENT ADMITTED IV FLUID SUPPORT ORTHO CONSULT REPLACE K NPO IV PAIN CONTROL Justifications for Admission Other Justification SHAISTA ANTON MD Nov 08, 2020 14:00
[2020-11-08] MEDS ORDERED: ACETAMINOPHEN 650 MG SUPP.RECT. PR PRN (14:15)
[2020-11-08] MEDS ORDERED: ALBUTEROL SULFATE 2.5 MG/3 ML NEBU. NEB PRN ×2 (14:15→14:30)
[2020-11-08] MEDS: POTASSIUM BICARB 20 MEQ EFFERVESCENT TABLET. PO SCH ×2 (14:15→18:15)
[2020-11-08] MEDS ORDERED: ELECTROLYTE (NON-ICU) PROTOCOL. MC PRN (14:15)
[2020-11-08] MEDS ORDERED: 0.9 % SODIUM CHLORIDE 10 ML DISP.SYRIN. IV PRN (14:15)
[2020-11-08] MEDS ORDERED: guaiFENesin ORAL 200 MG/10 ML LIQUID. PO PRN (14:15)
[2020-11-08] MEDS ORDERED: POTASSIUM BICARB 10 MEQ EFFERVESCENT TABLET. FT ONE (14:15)
[2020-11-08] MEDS ORDERED: DOCUSATE SODIUM 100 MG CAPSULE. PO PRN (14:15)
[2020-11-08] MEDS ORDERED: MAGNESIUM SULFATE 2GM 50 ML IV SCH (14:15)
[2020-11-08] MEDS ORDERED: POTASSIUM BICARB 20 MEQ EFFERVESCENT TABLET. FT ONE (14:15)
[2020-11-08] MEDS ORDERED: POTASSIUM BICARB 10 MEQ EFFERVESCENT TABLET. PO SCH (14:15)
[2020-11-08] MEDS ORDERED: MAG HYDROX/ALUMINUM HYD/SIMETH 30 ML ORAL.SUSP PO PRN (14:15)
[2020-11-08] MEDS ORDERED: POTASSIUM CHLORIDE 10MEQ 100 ML IV SCH ×2 (14:15)
[2020-11-08] MEDS ORDERED: IV RINGERS,LACTATED 1000ML 1,000 ML IV SCH (14:45)
[2020-11-08] MEDS ORDERED: HYDROmorphone 2 MG/ML VIAL IVP PRN (14:45)
[2020-11-08] MEDS ORDERED: fentaNYL PF VIAL 100 MCG/2 ML VIAL IVP PRN (14:45)
[2020-11-08] MEDS ORDERED: MORPHINE SULFATE 2 MG/ML VIAL. IVP PRN (14:45)
--- NOTE | 2020-11-08 15:22 | NUR ---
patient admitted to room 512 accompanied by daughter Altagracia. consents obtained from ADAM Frias. pt oriented to self only. oriented daughter to room and call light. IVF infusing.
[2020-11-08] MEDS ORDERED: INSULIN LISPRO 100 UNIT/ML 3ML VIAL for OP,RR ONLY. SQ PRN (15:45)
[2020-11-08] MEDS ORDERED: AMLO2.5T5 PO (15:58)
[2020-11-08] MEDS: ENOXAPARIN 40 MG/0.4 ML SYRINGE. SQ SCH (16:00)
[2020-11-08] MEDS ORDERED: LIDOCAINE 2% PF 5 ML VIAL. ONE (16:34)
[2020-11-08] MEDS ORDERED: PROPOFOL 10 MG/ML (20ML) VIAL. IV ONE (16:34)
[2020-11-08] MEDS ORDERED: fentaNYL PF VIAL 100 MCG/2 ML VIAL ONE ×3 (17:36→20:08)
[2020-11-08] MEDS ORDERED: ONDANSETRON PF 4 MG/2 ML VIAL. ONE (17:50)
--- NOTE | 2020-11-08 18:10 | HP ---
ADMIT DATE: 11/08/2020 CHIEF COMPLAINT: Painful ankle, lower leg. HISTORY OF PRESENT ILLNESS: This pleasantly confused 79-year-old female with a known history of COPD and hypertension, apparently fell 2 days prior. Her daughter states that her foot was twisted and she sat on the right leg. She has been mostly bed bound for the past 6 months. There was no head injury. She is very hard of hearing and is not a very good historian. When seen in the ER, there was evidence of a distal fibular and left tibial fracture. She was hypokalemic as well and had urinary tract infection. Dr. Oglesby was consulted and the patient was admitted for further care and pain control. PAST MEDICAL HISTORY: Includes history of diabetes, skin cancer, COPD, no alcohol use, hypertension, diabetes type 2. She has had a previous cholecystectomy and tubal ligation. FAMILY HISTORY: Positive for cancer and heart disease. SOCIAL HISTORY: Smokes less than a pack per day. REVIEW OF SYSTEMS: The patient is a poor historian, but denies fever or chills. Denies cough, abdominal pain, back pain or paraspinal pain. Denies rash. No headache, polyuria, depression or anxiety. Denies headache. She has no loss of consciousness. 14 pt ros otherwise neg PHYSICAL EXAMINATION: VITAL SIGNS: Blood pressure 168/104. She is 95% on room air. GENERAL: Well-developed, well-nourished. NECK: Supple. HEENT: Throat and pharynx are clear. She does not follow commands well. She does speak in sentences. There is no tachypnea. LUNGS: Clear with distant breath sounds. ABDOMEN: Soft, nontender. SKIN: Warm and dry. EXTREMITIES: No pelvic tenderness or CVA tenderness. She has tenderness to palpation of the right lateral medial malleolus and pain on the fibular head. No plantar ecchymosis sign. No pain over the metatarsals. NEUROLOGIC: She is alert, has good sensory function. Mood is normal. LABORATORY DATA: EKG shows QTc of 476, T-waves are diffusely inverted in leads I, II, III, aVF, V3 through V6. No ST segment depression. CT of the head shows moderate bilateral periventricular white matter consistent with small vessel ischemic disease. No intracranial acute findings. The x-rays of the cervical spine shows no acute fracture. Chest x-ray shows patchy left basilar atelectasis. There is an acute spiral mid to distal tibial shaft fracture with soft tissue swelling and oblique distal fibular fracture. The ankle mortise is symmetric. There is osteopenia present. There is a large amount of stool in the rectum. Potassium was noted to be very low at 2.7, BUN 22, creatinine 1.1, sodium 144. Troponin less than 0.017. Alkaline phosphatase 72, albumin 3.5. ASSESSMENT: 1. Left tibial fracture with acute spiral mid to distal tibial shaft fracture, vascular calcifications of the knee, and an oblique acute distal fibular fracture. 2. Atelectasis. 3. Severe hypokalemia. 4. Mechanical fall. 5. Urinary tract infection. 6. Cognitive decline, moderate. 7. History of displaced radius fracture, 03/2020. 8. Thyroid nodules measuring up to 1.8 cm in the left lobe. Followup sonogram is recommended as an outpatient. 9. diabetes 10. HX COPD 11. HYPERTENSION 12, GI REGIMENT for obstipation PLAN: Admit. IV fluids. NPO , Ortho consult. Replace potassium IV and p.o. IV pain control. Anticipate length of stay to be greater than 3 midnights. Current meds, please see medication reconciliation. DUONEBS QID PRN ACCUCHECKS iv antibiotics trend electrolytes Total time the patient examined, chart review was 75 minutes, greater than 50% of time spent with the patient exam, chart review and the patient care coordination. dvt prophylaxis, HOME MEDS SHAISTA ANTON MD DR: DAVID/pat JOB#: [id number] / [id number] CARA
[2020-11-08] MEDS ORDERED: SEVOFLURANE 61 TO 120 MINUTES. IH ONE (18:11)
[2020-11-08] MEDS ORDERED: PROCHLORPERAZINE 10 MG/2 ML VIAL. ONE (18:39)
[2020-11-08] MEDS: PROCHLORPERAZINE 10 MG/2 ML VIAL. IVP PRN ×2 (18:40→19:50)
[2020-11-08] MEDS: fentaNYL PF VIAL 100 MCG/2 ML VIAL IVP PRN ×4 (18:45→20:15)
--- NOTE | 2020-11-08 18:51 | PDOC4 ---
Operative Note Operative Note Date of surgery: 11/08/2020 Preoperative diagnosis: Spiral tibial shaft fracture right Postoperative diagnosis: Same Operative procedure: Operative reduction intramedullary nail fixation of right tibial shaft fracture Surgeon: Reny Round Boner: Jack rivera Anesthesia: General Estimated blood loss: 25 cc Complications: None Operative indications: Please see my orthopedic emergency department consultation note for detailed operative indications and note that we had discussed nonoperative and operative treatment options for her tibial shaft fracture. Her daughter power of corporate associate attorney wishes to proceed with surgical evaluation and treatment. Operative text: Patient was identified procedure verified patient placed in the supine position on the operating table. After adequate amounts of general anesthesia were administered the right lower extremity was prepped and draped in standard sterile fashion with a thigh tourniquet. After timeout was performed patient procedure identified and verified right lower extremity was exsanguinated by Esmarch bandage tourniquet inflated to 250 mmHg. An incision was made along the medial aspect of the patella and patellar tendon to allow slight lateral translation of the patella placing a guidewire under fluoroscopic guidance. Entry reamer was then placed along with a guidewire with the fracture held in reduced position successive size reaming was carried out to 12-1/2 mm and a Neil tibial nail 11 mm x 32 mm length was placed across the fracture site and reduction was checked under multiple fluoroscopic views. First an an terior posterior screw was placed distally to maintain the reduction. Proximal locking screws were placed from medial and lateral. An additional medial to lateral distal locking screw was placed and excellent reduction and rotational control was obtained. Hardware placement and fracture reduction were again checked under multiple fluoroscopic views. Irrigation carried out normal saline solution the medial parapatellar approach was closed with #1 PDS strata fix in a running fashion subcutaneous closure with buried Vicryl suture skin closure with bakari and soft sterile dressings were applied. Toes were noted to be warm pink following deflation of tourniquet patient was returned to recovery room in stable condition having tolerated the procedure well. Jack gonzalez assist was present for the procedure and assisted in patient positioning prepping draping retraction closure and dressings MARISSA CAI MD Nov 08, 2020 18:51
[2020-11-08] MEDS: DOCUSATE SODIUM 100 MG CAPSULE. PO SCH (20:51)
[2020-11-08] MEDS ORDERED: POTASSIUM & SODIUM PHOSPHATES PACKET. PO SCH (21:00)
[2020-11-08] MEDS: IV NORMAL SALINE 1000ML BAG 1,000 ML IV SCH (23:09)
[2020-11-08] MEDS: fentaNYL PF VIAL 100 MCG/2 ML VIAL IV PRN (23:13)
[2020-11-08] MEDS: LABETALOL 20 MG/4 ML DISP.SYRIN. IVP PRN (23:14)
--- NOTE | 2020-11-08 23:26 | CONS ---
DATE OF CONSULTATION: 11/08/2020 EMERGENCY DEPARTMENT ORTHOPEDIC CONSULTATION REQUESTING PHYSICIAN: Chioma Colon DO REASON FOR CONSULTATION: Right tibia fracture. HISTORY OF PRESENT ILLNESS: The patient is a 79-year-old female who is accompanied by her daughter who is her power of contracts attorney. She lives with her daughter and had a witnessed fall about 2 days ago. Apparently, the patient had her foot planted. She twisted and then fell on her right leg, had some pain, deformity and has pain with motion and inability to bear weight. She has been getting up and around, some with assistance after a period of less activity as physical therapy had been recently working with her, but apparently she has some dementia and just got up on her own without assistance causing this injury. Her daughter mainly gives her history as the patient does respond, but really does have some dementia issues and is not able to provide medical history. PAST MEDICAL HISTORY: Significant for type 2 diabetes, hypertension, skin cancer. PAST SURGICAL HISTORY: Heart valve, bilateral hemiarthroplasties of hips for fracture, cholecystectomy and wrist fracture surgery as well as skin cancer surgery. SOCIAL HISTORY: She is a smoker. Denies alcohol or drug use. ALLERGIES: Include MORPHINE, unknown reaction, PREDNISONE causes her anxiety and some hallucinations, PENICILLIN reported to cause a headache. FAMILY HISTORY: Chronic obstructive pulmonary disease, cancer and heart disease. MEDICATIONS: List is reviewed. REVIEW OF SYSTEMS: Really not possible due to her dementia, although the main issue is really her right leg with pain with any motion. PHYSICAL EXAMINATION: EXTREMITIES: She can wiggle her toes bilaterally. She is very tender over the right tibial shaft with gross movement with motion. She has good stability of bilateral knees and ankles and well-healed incisions from previous hip replacements for fracture. Likewise can move her shoulder, elbow and wrist well with minimal limitations. IMAGING: X-rays of the right tibia and fibula show spiral fracture of the tibial shaft. Pelvis x-rays show bipolar hemiarthroplasties that appear intact. IMPRESSION: Right tibia shaft fracture. TREATMENT PLAN: I went over with her daughter, the possibility of nonoperative treatment with a long leg cast and the potential concern with that of the patient with dementia really not being able to tell if there is a problem with swelling in the cast, which could potentially compromise or circulation. Brace would be very difficult to control this fracture. There is a possibility of operative treatment with a tibial nail, which would leave her knee and ankle mobile and allow her to mobilize somewhat until healing where she could put full weight back on it, typically given the expected healing, perhaps in about a month. There are also risks of surgery including infection, nerve or blood vessel damage, nonhealing, medical or other anesthetic complications among others. All her daughter's questions were answered and she does want to have her mom proceed with surgical fixation and treatment of intramedullary nail fixation of her right tibial shaft fracture. MARISSA CAI MD DR: JAGJIT/pat JOB#: [id number] / [id number]
[2020-11-09] VITALS (7 sets, daily range): BP systolic 143–198; BP diastolic 69–99
[2020-11-09] MEDS: fentaNYL PF VIAL 100 MCG/2 ML VIAL IV PRN (04:06)
[2020-11-09] MEDS: PANTOPRAZOLE 40 MG TABLET.DR. PO SCH (08:34)
[2020-11-09] MEDS: LISINOPRIL 20 MG TABLET PO SCH (08:35)
[2020-11-09] MEDS: DOCUSATE SODIUM 100 MG CAPSULE. PO SCH (08:35)
[2020-11-09] MEDS: ACETAMINOPHEN 325 MG TABLET. PO PRN (08:44)
--- NOTE | 2020-11-09 09:38 | PDOC ---
PROGRESS NOTES Date of Service DATE: 11/09/20 TIME: 09:34 Subjective Subjective Problems overnight: Was very agitated in recovery room last evening, now much better with her daughter present but still a bit disoriented Objective Vital Signs Vital Signs Date Time Temp Pulse Resp B/P (MAP) Pulse Ox O2 Delivery O2 Flow Rate FiO2 11/09/20 08:35 84 198/94 11/09/20 07:00 99.6 18 93 Room Air 99.6 11/09/20 04:36 2.0 Physical Exam On exam her dressings are clean dry intact distal neurovascular status intact good knee and ankle range of motion with minimal discomfort Labs Laboratory Tests Test 11/08/20 10:02 11/08/20 10:26 11/08/20 11:27 11/08/20 16:10 Urine Collection Type Unknown Urine Color Yellow Urine Clarity Clear Urine pH 5.5 (<5.0-8.0) Urine Specific [place] 1.015 (1.000-1.030) Urine Protein Negative mg/dL (NEG-TRACE) Urine Glucose (UA) Negative mg/dL (NEG) Urine Ketones (Stick) Negative mg/dL (NEG) Urine Blood Negative (NEG) Urine Nitrite Positive (NEG) Urine Bilirubin Negative (NEG) Urine Urobilinogen Dipstick 1.0 mg/dL (0.2 mg/dL) Urine Leukocyte Esterase Large (NEG) Urine RBC 0 /HPF (0-2) Urine WBC >40 /HPF (0-4) Urine Squamous Epithelial Cells Few /LPF Urine Bacteria Many /HPF (0-FEW) Urine Hyaline Casts Moderate /HPF White Blood Count 5.6 x10^3/uL (4.0-11.0) Red Blood Count 4.05 x10^6/uL (3.50-5.40) Hemoglobin 13.7 g/dL (12.0-15.5) Hematocrit 39.2 % (36.0-47.0) Mean Corpuscular Volume 97 fL (79-100) Mean Corpuscular Hemoglobin 34 pg (25-35) Mean Corpuscular Hemoglobin Concent 35 g/dL (31-37) Red Cell Distribution Width 13.3 % (11.5-14.5) Platelet Count 139 x10^3/uL (140-400) Neutrophils (%) (Auto) 77 % (31-73) Lymphocytes (%) (Auto) 16 % (24-48) Monocytes (%) (Auto) 6 % (0-9) Eosinophils (%) (Auto) 2 % (0-3) Basophils (%) (Auto) 0 % (0-3) Neutrophils # (Auto) 4.3 x10^3/uL (1.8-7.7) Lymphocytes # (Auto) 0.9 x10^3/uL (1.0-4.8) Monocytes # (Auto) 0.3 x10^3/uL (0.0-1.1) Eosinophils # (Auto) 0.1 x10^3/uL (0.0-0.7) Basophils # (Auto) 0.0 x10^3/uL (0.0-0.2) Sodium Level 144 mmol/L (136-145) Potassium Level 2.7 mmol/L (3.5-5.1) Chloride Level 103 mmol/L (98-107) Carbon Dioxide Level 36 mmol/L (21-32) Anion Gap 5 (6-14) Blood Urea Nitrogen 22 mg/dL (7-20) Creatinine 1.1 mg/dL (0.6-1.0) Estimated GFR (Cockcroft-Gault) 48.0 BUN/Creatinine Ratio 20 (6-20) Glucose Level 157 mg/dL (70-99) Calcium Level 9.1 mg/dL (8.5-10.1) Total Bilirubin 1.0 mg/dL (0.2-1.0) Aspartate Amino Transf (AST/SGOT) 20 U/L (15-37) Alanine Aminotransferase (ALT/SGPT) 29 U/L (14-59) Alkaline Phosphatase 72 U/L (46-116) Troponin I Quantitative < 0.017 ng/mL (0.000-0.055) Total Protein 6.5 g/dL (6.4-8.2) Albumin 3.5 g/dL (3.4-5.0) Albumin/Globulin Ratio 1.2 (1.0-1.7) Coronavirus (PCR) Not detected (Not Detected) SARS-CoV-2 Antigen (Rapid) Negative (NEGATIVE) Glucose (Fingerstick) 131 mg/dL (70-99) Test 11/08/20 23:28 11/09/20 08:18 Glucose (Fingerstick) 167 mg/dL (70-99) 148 mg/dL (70-99) Laboratory Tests Test 11/08/20 10:02 11/08/20 10:26 11/08/20 11:27 11/08/20 16:10 Urine Collection Type Unknown Urine Color Yellow Urine Clarity Clear Urine pH 5.5 (<5.0-8.0) Urine Specific [place] 1.015 (1.000-1.030) Urine Protein Negative mg/dL (NEG-TRACE) Urine Glucose (UA) Negative mg/dL (NEG) Urine Ketones (Stick) Negative mg/dL (NEG) Urine Blood Negative (NEG) Urine Nitrite Positive (NEG) Urine Bilirubin Negative (NEG) Urine Urobilinogen Dipstick 1.0 mg/dL (0.2 mg/dL) Urine Leukocyte Esterase Large (NEG) Urine RBC 0 /HPF (0-2) Urine WBC >40 /HPF (0-4) Urine Squamous Epithelial Cells Few /LPF Urine Bacteria Many /HPF (0-FEW) Urine Hyaline Casts Moderate /HPF White Blood Count 5.6 x10^3/uL (4.0-11.0) Red Blood Count 4.05 x10^6/uL (3.50-5.40) Hemoglobin 13.7 g/dL (12.0-15.5) Hematocrit 39.2 % (36.0-47.0) Mean Corpuscular Volume 97 fL (79-100) Mean Corpuscular Hemoglobin 34 pg (25-35) Mean Corpuscular Hemoglobin Concent 35 g/dL (31-37) Red Cell Distribution Width 13.3 % (11.5-14.5) Platelet Count 139 x10^3/uL (140-400) Neutrophils (%) (Auto) 77 % (31-73) Lymphocytes (%) (Auto) 16 % (24-48) Monocytes (%) (Auto) 6 % (0-9) Eosinophils (%) (Auto) 2 % (0-3) Basophils (%) (Auto) 0 % (0-3) Neutrophils # (Auto) 4.3 x10^3/uL (1.8-7.7) Lymphocytes # (Auto) 0.9 x10^3/uL (1.0-4.8) Monocytes # (Auto) 0.3 x10^3/uL (0.0-1.1) Eosinophils # (Auto) 0.1 x10^3/uL (0.0-0.7) Basophils # (Auto) 0.0 x10^3/uL (0.0-0.2) Sodium Level 144 mmol/L (136-145) Potassium Level 2.7 mmol/L (3.5-5.1) Chloride Level 103 mmol/L (98-107) Carbon Dioxide Level 36 mmol/L (21-32) Anion Gap 5 (6-14) Blood Urea Nitrogen 22 mg/dL (7-20) Creatinine 1.1 mg/dL (0.6-1.0) Estimated GFR (Cockcroft-Gault) 48.0 BUN/Creatinine Ratio 20 (6-20) Glucose Level 157 mg/dL (70-99) Calcium Level 9.1 mg/dL (8.5-10.1) Total Bilirubin 1.0 mg/dL (0.2-1.0) Aspartate Amino Transf (AST/SGOT) 20 U/L (15-37) Alanine Aminotransferase (ALT/SGPT) 29 U/L (14-59) Alkaline Phosphatase 72 U/L (46-116) Troponin I Quantitative < 0.017 ng/mL (0.000-0.055) Total Protein 6.5 g/dL (6.4-8.2) Albumin 3.5 g/dL (3.4-5.0) Albumin/Globulin Ratio 1.2 (1.0-1.7) Coronavirus (PCR) Not detected (Not Detected) SARS-CoV-2 Antigen (Rapid) Negative (NEGATIVE) Glucose (Fingerstick) 131 mg/dL (70-99) Test 11/08/20 23:28 11/09/20 08:18 Glucose (Fingerstick) 167 mg/dL (70-99) 148 mg/dL (70-99) Imaging Intra-Op views show anatomic reduction of a right tibial shaft fracture with intramedullary fixation Assessment Assessment POD#1 ORIF right tibia shaft fracture Plan Plan of Care I am going to keep her nonweightbearing until we see some healing changes because she is unable to comply really with partial weightbearing, she can however remove the knee and ankle as tolerated Daughter is very attentive in her care and is at her side really at almost all times and is prepared to take her back home when medically stable. This seems a reasonable plan based on talking with the daughter Medical management in interim Justicifation of Admission Dx: Justifications for Admission: Justification of Admission Dx: N/A MARISSA CAI MD Nov 09, 2020 09:38
[2020-11-09 09:54] LABS: BASO % 0 % (0-3); EOS % 0 % (0-3); HEMATOCRIT 35.3 % (36.0-47.0); HEMOGLOBIN 12.2 g/dL (12.0-15.5); LYMPH # 1.1 x10^3/uL (1.0-4.8); LYMPH % 17 % (24-48); MEAN CORPUSCULAR HEMOGLOBIN 34 pg (25-35); MEAN CORPUSCULAR HGB CONC 35 g/dL (31-37); MEAN CORPUSCULAR VOLUME 98 fL (79-100); MONO # 0.5 x10^3/uL (0.0-1.1); MONO % 8 % (0-9); NEUT # 4.6 x10^3/uL (1.8-7.7); NEUT % 75 % (31-73); PLATELET COUNT 131 x10^3/uL (140-400); RED BLOOD COUNT 3.61 x10^6/uL (3.50-5.40); RED CELL DISTRIBUTION WIDTH 13.2 % (11.5-14.5); WHITE BLOOD COUNT 6.2 x10^3/uL (4.0-11.0)
--- NOTE | 2020-11-09 10:53 | PDOC ---
PROGRESS NOTES Date of Service: DATE: 11/09/20 TIME: 10:53 Chief Complaint Chief Complaint ASSESSMENT: 1. Left tibial fracture with acute spiral mid to distal tibial shaft fracture, vascular calcifications of the knee, and an oblique acute distal fibular fracture. 2. Atelectasis. 3. Severe hypokalemia. 4. Mechanical fall. 5. Urinary tract infection. 6. Cognitive decline, moderate., suspect moderate dementia 7. History of displaced radius fracture, 03/2020. 8. Thyroid nodules measuring up to 1.8 cm in the left lobe. Followup sonogram is recommended as an outpatient. 9. diabetes 10. HX COPD 11. HYPERTENSION 12, GI REGIMENT for obstipation PLAN: Admit. IV fluids. Ortho consult. Replace potassium IV p.o. IV pain control. Anticipate length of stay to be greater than 3 midnights. Current meds, please see medication reconciliation. DUONEBS QID PRN ACCUCHECKS iv antibiotics trend electrolytes Total time the patient examined, chart review was 37 minutes, greater than 50% of time spent with the patient exam, chart review and the patient care coordination. dvt prophylaxis, HOME MEDS History of Present Illness History of Present Illness CHIEF COMPLAINT: Painful ankle, lower leg. HISTORY OF PRESENT ILLNESS: This pleasantly confused 79-year-old female with a known history of COPD and hypertension, apparently fell 2 days prior. Her daughter states that her foot was twisted and she sat on the right leg. She has been mostly bed bound for the past 6 months. There was no head injury. She is very hard of hearing and is not a very good historian. When seen in the ER, there was evidence of a distal fibular and left tibial fracture. She was hypokalemic as well and had urinary tract infection. Dr. Oglesby was consulted and the patient was admitted for further care and pain control. PAST MEDICAL HISTORY: Includes history of diabetes, skin cancer, COPD, no alcohol use, hypertension, diabetes type 2. She has had a previous cholecystectomy and tubal ligation. FAMILY HISTORY: Positive for cancer and heart disease. SOCIAL HISTORY: Smokes less than a pack per day. REVIEW OF SYSTEMS: The patient is a poor historian, but denies fever or chills. Denies cough, abdominal pain, back pain or paraspinal pain. Denies rash. No headache, polyuria, depression or anxiety. Denies headache. She has no loss of consciousness. 14 pt ros otherwise neg Vitals Vitals Vital Signs Date Time Temp Pulse Resp B/P (MAP) Pulse Ox O2 Delivery O2 Flow Rate FiO2 11/09/20 08:35 84 198/94 11/09/20 08:00 Room Air 11/09/20 07:00 99.6 18 93 99.6 11/09/20 04:36 2.0 Physical Exam Physical Exam GENERAL: Well-developed, well-nourished. NECK: Supple. HEENT: Throat and pharynx are clear. She does not follow commands well. She does speak in sentences. There is no tachypnea. LUNGS: Clear with distant breath sounds. ABDOMEN: Soft, nontender. SKIN: Warm and dry. EXTREMITIES: No pelvic tenderness or CVA tenderness. She has tenderness to palpation of the right lateral medial malleolus and pain on the fibular head. No plantar ecchymosis sign. No pain over the metatarsals. NEUROLOGIC: She is alert, has good sensory function. Mood is normal. LABORATORY DATA: EKG shows QTc of 476, T-waves are diffusely inverted in leads I, II, III, aVF, V3 through V6. No ST segment depression. CT of the head shows moderate bilateral periventricular white matter consistent with small vessel ischemic disease. No intracranial acute findings. The x-rays of the cervical spine shows no acute fracture. Chest x-ray shows patchy left basilar atelectasis. There is an acute spiral mid to distal tibial shaft fracture with soft tissue swelling and oblique distal fibular fracture. The ankle mortise is symmetric. There is osteopenia present. There is a large amount of stool in the rectum. Potassium was noted to be very low at 2.7, BUN 22, creatinine 1.1, sodium 144. Troponin less than 0.017. Alkaline phosphatase 72, albumin 3.5. General: Cooperative, mild distress Lungs: Clear Abdomen: Normal bowel sounds, Soft Extremities: No cyanosis Labs LABS Laboratory Tests Test 11/08/20 11:27 11/08/20 16:10 11/08/20 23:28 11/09/20 08:18 Coronavirus (PCR) Not detected (Not Detected) SARS-CoV-2 Antigen (Rapid) Negative (NEGATIVE) Glucose (Fingerstick) 131 mg/dL (70-99) 167 mg/dL (70-99) 148 mg/dL (70-99) Test 11/09/20 08:59 White Blood Count 6.2 x10^3/uL (4.0-11.0) Red Blood Count 3.61 x10^6/uL (3.50-5.40) Hemoglobin 12.2 g/dL (12.0-15.5) Hematocrit 35.3 % (36.0-47.0) Mean Corpuscular Volume 98 fL (79-100) Mean Corpuscular Hemoglobin 34 pg (25-35) Mean Corpuscular Hemoglobin Concent 35 g/dL (31-37) Red Cell Distribution Width 13.2 % (11.5-14.5) Platelet Count 131 x10^3/uL (140-400) Neutrophils (%) (Auto) 75 % (31-73) Lymphocytes (%) (Auto) 17 % (24-48) Monocytes (%) (Auto) 8 % (0-9) Eosinophils (%) (Auto) 0 % (0-3) Basophils (%) (Auto) 0 % (0-3) Neutrophils # (Auto) 4.6 x10^3/uL (1.8-7.7) Lymphocytes # (Auto) 1.1 x10^3/uL (1.0-4.8) Monocytes # (Auto) 0.5 x10^3/uL (0.0-1.1) Eosinophils # (Auto) 0.0 x10^3/uL (0.0-0.7) Basophils # (Auto) 0.0 x10^3/uL (0.0-0.2) Phosphorus Level 3.1 mg/dL (2.6-4.7) Assessment and Plan Assessmemt and Plan Problems Medical Problems: (1) Fracture of distal fibula Status: Acute (2) Hypokalemia Status: Acute (3) Left tibial fracture Status: Acute (4) UTI (urinary tract infection) Status: Acute Comment Review of Relevant I have reviewed the following items ernesto (where applicable) has been applied. Labs Laboratory Tests Test 11/08/20 10:02 11/08/20 10:26 11/08/20 11:27 11/08/20 16:10 Urine Collection Type Unknown Urine Color Yellow Urine Clarity Clear Urine pH 5.5 (<5.0-8.0) Urine Specific [place] 1.015 (1.000-1.030) Urine Protein Negative mg/dL (NEG-TRACE) Urine Glucose (UA) Negative mg/dL (NEG) Urine Ketones (Stick) Negative mg/dL (NEG) Urine Blood Negative (NEG) Urine Nitrite Positive (NEG) Urine Bilirubin Negative (NEG) Urine Urobilinogen Dipstick 1.0 mg/dL (0.2 mg/dL) Urine Leukocyte Esterase Large (NEG) Urine RBC 0 /HPF (0-2) Urine WBC >40 /HPF (0-4) Urine Squamous Epithelial Cells Few /LPF Urine Bacteria Many /HPF (0-FEW) Urine Hyaline Casts Moderate /HPF White Blood Count 5.6 x10^3/uL (4.0-11.0) Red Blood Count 4.05 x10^6/uL (3.50-5.40) Hemoglobin 13.7 g/dL (12.0-15.5) Hematocrit 39.2 % (36.0-47.0) Mean Corpuscular Volume 97 fL (79-100) Mean Corpuscular Hemoglobin 34 pg (25-35) Mean Corpuscular Hemoglobin Concent 35 g/dL (31-37) Red Cell Distribution Width 13.3 % (11.5-14.5) Platelet Count 139 x10^3/uL (140-400) Neutrophils (%) (Auto) 77 % (31-73) Lymphocytes (%) (Auto) 16 % (24-48) Monocytes (%) (Auto) 6 % (0-9) Eosinophils (%) (Auto) 2 % (0-3) Basophils (%) (Auto) 0 % (0-3) Neutrophils # (Auto) 4.3 x10^3/uL (1.8-7.7) Lymphocytes # (Auto) 0.9 x10^3/uL (1.0-4.8) Monocytes # (Auto) 0.3 x10^3/uL (0.0-1.1) Eosinophils # (Auto) 0.1 x10^3/uL (0.0-0.7) Basophils # (Auto) 0.0 x10^3/uL (0.0-0.2) Sodium Level 144 mmol/L (136-145) Potassium Level 2.7 mmol/L (3.5-5.1) Chloride Level 103 mmol/L (98-107) Carbon Dioxide Level 36 mmol/L (21-32) Anion Gap 5 (6-14) Blood Urea Nitrogen 22 mg/dL (7-20) Creatinine 1.1 mg/dL (0.6-1.0) Estimated GFR (Cockcroft-Gault) 48.0 BUN/Creatinine Ratio 20 (6-20) Glucose Level 157 mg/dL (70-99) Calcium Level 9.1 mg/dL (8.5-10.1) Total Bilirubin 1.0 mg/dL (0.2-1.0) Aspartate Amino Transf (AST/SGOT) 20 U/L (15-37) Alanine Aminotransferase (ALT/SGPT) 29 U/L (14-59) Alkaline Phosphatase 72 U/L (46-116) Troponin I Quantitative < 0.017 ng/mL (0.000-0.055) Total Protein 6.5 g/dL (6.4-8.2) Albumin 3.5 g/dL (3.4-5.0) Albumin/Globulin Ratio 1.2 (1.0-1.7) Coronavirus (PCR) Not detected (Not Detected) SARS-CoV-2 Antigen (Rapid) Negative (NEGATIVE) Glucose (Fingerstick) 131 mg/dL (70-99) Test 11/08/20 23:28 11/09/20 08:18 11/09/20 08:59 Glucose (Fingerstick) 167 mg/dL (70-99) 148 mg/dL (70-99) White Blood Count 6.2 x10^3/uL (4.0-11.0) Red Blood Count 3.61 x10^6/uL (3.50-5.40) Hemoglobin 12.2 g/dL (12.0-15.5) Hematocrit 35.3 % (36.0-47.0) Mean Corpuscular Volume 98 fL (79-100) Mean Corpuscular Hemoglobin 34 pg (25-35) Mean Corpuscular Hemoglobin Concent 35 g/dL (31-37) Red Cell Distribution Width 13.2 % (11.5-14.5) Platelet Count 131 x10^3/uL (140-400) Neutrophils (%) (Auto) 75 % (31-73) Lymphocytes (%) (Auto) 17 % (24-48) Monocytes (%) (Auto) 8 % (0-9) Eosinophils (%) (Auto) 0 % (0-3) Basophils (%) (Auto) 0 % (0-3) Neutrophils # (Auto) 4.6 x10^3/uL (1.8-7.7) Lymphocytes # (Auto) 1.1 x10^3/uL (1.0-4.8) Monocytes # (Auto) 0.5 x10^3/uL (0.0-1.1) Eosinophils # (Auto) 0.0 x10^3/uL (0.0-0.7) Basophils # (Auto) 0.0 x10^3/uL (0.0-0.2) Phosphorus Level 3.1 mg/dL (2.6-4.7) Laboratory Tests Test 11/08/20 11:27 11/08/20 16:10 11/08/20 23:28 11/09/20 08:18 Coronavirus (PCR) Not detected (Not Detected) SARS-CoV-2 Antigen (Rapid) Negative (NEGATIVE) Glucose (Fingerstick) 131 mg/dL (70-99) 167 mg/dL (70-99) 148 mg/dL (70-99) Test 11/09/20 08:59 White Blood Count 6.2 x10^3/uL (4.0-11.0) Red Blood Count 3.61 x10^6/uL (3.50-5.40) Hemoglobin 12.2 g/dL (12.0-15.5) Hematocrit 35.3 % (36.0-47.0) Mean Corpuscular Volume 98 fL (79-100) Mean Corpuscular Hemoglobin 34 pg (25-35) Mean Corpuscular Hemoglobin Concent 35 g/dL (31-37) Red Cell Distribution Width 13.2 % (11.5-14.5) Platelet Count 131 x10^3/uL (140-400) Neutrophils (%) (Auto) 75 % (31-73) Lymphocytes (%) (Auto) 17 % (24-48) Monocytes (%) (Auto) 8 % (0-9) Eosinophils (%) (Auto) 0 % (0-3) Basophils (%) (Auto) 0 % (0-3) Neutrophils # (Auto) 4.6 x10^3/uL (1.8-7.7) Lymphocytes # (Auto) 1.1 x10^3/uL (1.0-4.8) Monocytes # (Auto) 0.5 x10^3/uL (0.0-1.1) Eosinophils # (Auto) 0.0 x10^3/uL (0.0-0.7) Basophils # (Auto) 0.0 x10^3/uL (0.0-0.2) Phosphorus Level 3.1 mg/dL (2.6-4.7) Microbiology 11/08/20 Urine Culture - Preliminary, Resulted Medications Current Medications Acetaminophen/ Hydrocodone Bitart (Lortab 5/325) 1 tab 1X ONCE PO ; Start 11/08/20 at 10:00; Stop 11/08/20 at 10:33; Status DC Hydromorphone HCl (Dilaudid) 0.5 mg 1X ONCE IVP Last administered on 11/08/20at 10:40; Start 11/08/20 at 10:45; Stop 11/08/20 at 10:46; Status DC Potassium Bicarbonate (Potassium Effervescent Tablet) 40 meq 1X ONCE PO Last administered on 11/08/20at 11:26; Start 11/08/20 at 11:00; Stop 11/08/20 at 11:02; Status DC Ceftriaxone Sodium (Rocephin) 1 gm 1X ONCE IVP Last administered on 11/08/20at 12:39; Start 11/08/20 at 12:00; Stop 11/08/20 at 12:01; Status DC Hydromorphone HCl (Dilaudid) 0.5 mg PRN Q2HR ONCE IVP Last administered on 11/08/20at 12:53; Start 11/08/20 at 13:00; Stop 11/08/20 at 13:01; Status DC Ondansetron HCl (Zofran) 4 mg PRN Q8HRS PRN IV NAUSEA/VOMITING; Start 11/08/20 at 13:30; Stop 11/08/20 at 14:22; Status DC Fentanyl Citrate (Fentanyl 2ml Vial) 50 mcg PRN Q1HR PRN IV PAIN Last administered on 11/09/20at 04:06; Start 11/08/20 at 13:30; Stop 11/09/20 at 13:29 Sodium Chloride 1,000 ml @ 100 mls/hr Q10H IV Last administered on 11/08/20at 13:57; Start 11/08/20 at 13:30; Stop 11/08/20 at 23:29; Status DC Acetaminophen (Tylenol) 650 mg PRN Q4HRS PRN PO FEVER > 100.3'F; Start 11/08/20 at 13:30; Stop 11/08/20 at 14:22; Status DC Potassium Bicarbonate (Potassium Effervescent Tablet) 40 meq 1X ONCE FT ; Start 11/08/20 at 14:15; Stop 11/08/20 at 14:16; Status UNV Potassium Bicarbonate (Potassium Effervescent Tablet) 40 meq 1X ONCE FT ; Start 11/08/20 at 14:15; Stop 11/08/20 at 14:16; Status UNV Potassium Chloride/Water 100 ml @ 100 mls/hr Q1H IV ; Start 11/08/20 at 14:15; Stop 11/08/20 at 18:14; Status UNV Magnesium Sulfate 50 ml @ 25 mls/hr Q24H IV ; Start 11/08/20 at 14:15; Stop 11/10/20 at 16:14; Status UNV Potassium Phos/ Sodium Phos (Phos-Nak) 1 pkt BID PO ; Start 11/08/20 at 21:00; Stop 11/09/20 at 09:01; Status UNV Potassium Bicarbonate (Potassium Effervescent Tablet) 40 meq Q4H PO ; Start 11/08/20 at 14:15; Stop 11/08/20 at 18:16; Status DC Potassium Bicarbonate (Potassium Effervescent Tablet) 40 meq Q4H PO ; Start 11/08/20 at 14:15; Stop 11/08/20 at 18:16; Status UNV Potassium Chloride/Water 100 ml @ 100 mls/hr Q1H IV ; Start 11/08/20 at 14:15; Stop 11/08/20 at 18:14; Status UNV Info (Non-Icu Electrolyte Protocol) 1 ea CONT PRN PRN MC PER PROTOCOL; Start 11/08/20 at 14:15 Ceftriaxone Sodium (Rocephin) 1 gm Q24H IVP ; Start 11/09/20 at 13:00 Sodium Chloride (Normal Saline Flush) 3 ml QSHIFT PRN IV AFTER MEDS AND BLOOD DRAWS; Start 11/08/20 at 14:15 Sodium Chloride 1,000 ml @ 75 mls/hr [id number] IV Last administered on 11/08/20at 23:09; Start 11/09/20 at 00:00 Ondansetron HCl (Zofran) 4 mg PRN Q4HRS PRN IV NAUSEA/VOMITING; Start 11/08/20 at 14:15 Acetaminophen (Tylenol) 650 mg PRN Q4HRS PRN PO TEMP OVER 100.4F OR MILD PAIN Last administered on 11/09/20at 08:44; Start 11/08/20 at 14:15 Acetaminophen (Tylenol Supp) 650 mg PRN Q4HRS PRN W[place] TEMP OVER 100.4F OR MILD PAIN; Start 11/08/20 at 14:15 Al Hydroxide/Mg Hydroxide (Mylanta Plus Xs) 30 ml PRN DAILY PRN PO HEARTBURN / GAS; Start 11/08/20 at 14:15 Docusate Sodium (Colace) 100 mg PRN BID PRN PO HARD STOOLS; Start 11/08/20 at 14:15 Albuterol Sulfate (Ventolin Neb Soln) 2.5 mg PRN Q4HRS PRN NEB SHORTNESS OF BREATH; Start 11/08/20 at 14:15 Guaifenesin (Robitussin) 200 mg PRN Q4HRS PRN PO COUGH; Start 11/08/20 at 14:15 Enoxaparin Sodium (Lovenox 40mg Syringe) 40 mg Q24H SQ ; Start 11/08/20 at 16:00 Albuterol Sulfate (Ventolin Neb Soln) 2.5 mg PRN Q6HRS PRN NEB SHORTNESS OF BREATH; Start 11/08/20 at 14:30; Status Cancel Docusate Sodium (Colace) 100 mg BID PO Last administered on 11/09/20at 08:35; Start 11/08/20 at 21:00 Lisinopril (Prinivil) 20 mg DAILY PO Last administered on 11/09/20at 08:35; Start 11/09/20 at 09:00 Pantoprazole Sodium (Protonix) 40 mg DAILYAC PO Last administered on 11/09/20at 08:34; Start 11/09/20 at 07:30 Fentanyl Citrate (Fentanyl 2ml Vial) 25 mcg PRN Q5MIN PRN IVP MILD PAIN 1-3; Start 11/08/20 at 14:45; Stop 11/09/20 at 14:44 Fentanyl Citrate (Fentanyl 2ml Vial) 50 mcg PRN Q5MIN PRN IVP MODERATE PAIN 4-6 Last administered on 11/08/20at 20:15; Start 11/08/20 at 14:45; Stop 11/09/20 at 14:44 Morphine Sulfate (Morphine Sulfate) 1 mg PRN Q10MIN PRN IVP SEVERE PAIN 7-10; Start 11/08/20 at 14:45; Stop 11/09/20 at 14:44; Status UNV Ringer's Solution 1,000 ml @ 30 mls/hr Q24H IV ; Start 11/08/20 at 14:45; Stop 11/09/20 at 02:44; Status DC Hydromorphone HCl (Dilaudid) 0.5 mg PRN Q10MIN PRN IVP SEVERE PAIN 7-10, 2nd CHOICE; Start 11/08/20 at 14:45; Stop 11/09/20 at 14:44 Prochlorperazine Edisylate (Compazine) 5 mg PACU PRN PRN IVP NAUSEA, MRX1 Last administered on 11/08/20at 19:50; Start 11/08/20 at 14:45; Stop 11/09/20 at 14:44 Insulin Human Lispro (HumaLOG VIAL for OP,RR ONLY) 0-10 units PRN Q1HR PRN SQ PER PROTOCOL; Start 11/08/20 at 15:45; Stop 11/09/20 at 15:44 Propofol (Diprivan) 200 mg STK-MED ONCE IV ; Start 11/08/20 at 16:34; Stop 11/08/20 at 16:34; Status DC Lidocaine HCl (Lidocaine Pf 2% Vial) 5 ml STK-MED ONCE .ROUTE ; Start 11/08/20 at 16:34; Stop 11/08/20 at 16:34; Status DC Fentanyl Citrate (Fentanyl 2ml Vial) 100 mcg STK-MED ONCE .ROUTE ; Start 11/08/20 at 17:36; Stop 11/08/20 at 17:37; Status DC Ondansetron HCl (Zofran) 4 mg STK-MED ONCE .ROUTE ; Start 11/08/20 at 17:50; Stop 11/08/20 at 17:51; Status DC Sevoflurane (Ultane) 60 ml STK-MED ONCE IH ; Start 11/08/20 at 18:11; Stop 11/08/20 at 18:12; Status DC Fentanyl Citrate (Fentanyl 2ml Vial) 100 mcg STK-MED ONCE .ROUTE ; Start 11/08/20 at 18:39; Stop 11/08/20 at 18:39; Status DC Prochlorperazine Edisylate (Compazine) 10 mg STK-MED ONCE .ROUTE ; Start at 18:39; Stop 11/08/20 at 18:40; Status DC Fentanyl Citrate (Fentanyl 2ml Vial) 100 mcg STK-MED ONCE .ROUTE ; Start at 20:08; Stop 11/08/20 at 20:09; Status DC Labetalol HCl (Normodyne Iv Push) 10 mg PRN Q3HRS PRN IVP HYPERTENSION Last administered on 11/08/20at 23:14; Start 11/08/20 at 23:00 Active Scripts Active Percocet 10-325 Mg Tablet (Oxycodone/Acetaminophen) 1 Each Tablet 1 Tab PO PRN Q4HRS PRN Reported Amlodipine Besylate 2.5 Mg Tablet 1 Tab PO DAILY DURAGESIC 25mcg/hr (Fentanyl) 1 Each Patch.td72 1 Patch TD Q72H Furosemide 40 Mg Tablet 40 Mg PO DAILY Meloxicam 7.5 Mg Tablet 15 Mg PO DAILY Proair Hfa Inhaler (Albuterol Sulfate) 8.5 Gm Hfa.aer.ad 1 Puff INH PRN Q6HRS PRN Lisinopril 20 Mg Tablet 20 Mg PO DAILY Docusate Sodium 100 Mg Capsule 100 Mg PO BID Pioglitazone Hcl 15 Mg Tablet 15 Mg PO DAILY Protonix Packet (Pantoprazole Sodium) 40 Mg Granpkt.dr 40 Mg PO DAILY Vitals/I & O Vital Sign - Last 24 Hours 11/08/20 11/08/20 11/08/20 11/08/20 12:53 13:26 15:00 15:57 Temp 98.2 98.4 98.2 98.4 Pulse 74 72 Resp 16 18 20 B/P (MAP) 168/82 (110) 171/96 (121) 180/81 Pulse Ox 93 98 98 95 O2 Delivery Room Air Room Air Room Air Room Air 11/08/20 11/08/20 11/08/20 11/08/20 16:18 16:42 18:27 18:27 Temp 98.4 98.4 Pulse 69 82 Resp 20 28 B/P (MAP) 183/94 131/62 Pulse Ox 100 99 O2 Delivery Room Air Nasal Cannula Mask Simple Mask O2 Flow Rate 2 8 8 11/08/20 11/08/20 11/08/20 11/08/20 18:44 18:51 19:35 19:50 Pulse 102 110 97 102 Resp 32 36 22 39 B/P (MAP) 147/129 Pulse Ox 89 96 91 O2 Delivery Room Air Room Air Room Air Simple Mask Simple Mask 11/08/20 11/08/20 11/08/20 11/08/20 20:05 20:30 20:30 20:40 Temp 97.8 97.8 Pulse 96 99 Resp 33 18 20 B/P (MAP) 167/84 168/101 (123) Pulse Ox 93 91 O2 Delivery Room Air Room Air Room Air Room Air Simple Mask 11/08/20 11/08/20 11/08/20 11/08/20 20:45 20:45 21:00 21:15 Pulse 98 101 99 Resp 20 18 18 B/P (MAP) 167/104 (125) 199/100 (133) 197/101 (133) Pulse Ox 98 97 O2 Delivery Room Air Room Air Room Air 11/08/20 11/08/20 11/08/20 11/08/20 21:20 21:30 22:00 22:30 Pulse 104 99 109 Resp 20 20 20 B/P (MAP) 186/96 (126) 180/90 (120) 184/100 (128) Pulse Ox 92 90 90 90 O2 Delivery Room Air Room Air Room Air Room Air 11/08/20 11/08/20 11/08/20 11/08/20 23:00 23:13 23:14 23:27 Pulse 96 91 79 Resp 20 20 20 B/P (MAP) 180/99 (126) 180/99 173/82 (112) Pulse Ox 85 90 96 O2 Delivery Room Air Room Air Nasal Cannula O2 Flow Rate 2.0 11/08/20 11/09/20 11/09/20 11/09/20 23:43 00:00 03:00 04:06 Temp 99.1 99.1 Pulse 71 100 Resp 20 18 18 20 B/P (MAP) 170/86 (114) 150/99 (116) Pulse Ox 97 97 92 O2 Delivery Nasal Cannula Nasal Cannula Nasal Cannula Nasal Cannula O2 Flow Rate 2.0 2.0 2.0 2.0 11/09/20 11/09/20 11/09/20 11/09/20 04:36 07:00 08:00 08:35 Temp 99.6 99.6 Pulse 84 84 Resp 20 18 B/P (MAP) 198/94 (128) 198/94 Pulse Ox 93 93 O2 Delivery Nasal Cannula Room Air Room Air O2 Flow Rate 2.0 Intake and Output 11/08/20 11/08/20 11/09/20 15:00 23:00 07:00 Intake Total 1100 ml 50 ml Output Total 225 ml 400 ml Balance 875 ml -350 ml Justicifation of Admission Dx: Justifications for Admission: Justification of Admission Dx: N/A SHAISTA ANTON MD Nov 09, 2020 10:53
[2020-11-09] MEDS: IV NORMAL SALINE 1000ML BAG 1,000 ML IV SCH (13:38)
[2020-11-09] MEDS: cefTRIAXone IV Push 1 GM VIAL. IVP SCH (13:38)
[2020-11-09] MEDS: NICOTINE 21MG PATCH. TD SCH (16:45)
[2020-11-09] MEDS: ENOXAPARIN 40 MG/0.4 ML SYRINGE. SQ SCH (16:45)
[2020-11-10] MEDS: LACTOBACILLUS RHAMNOSUS GG 1 CAPSULE. PO SCH ×3 (00:10→21:41)
[2020-11-10] MEDS: DOCUSATE SODIUM 100 MG CAPSULE. PO SCH ×3 (00:11→21:42)
[2020-11-10] MEDS: IV NORMAL SALINE 1000ML BAG 1,000 ML IV SCH ×2 (02:40→16:14)
[2020-11-10 03:00] VITALS: BP 185/99
[2020-11-10 07:00] VITALS: BP 171/80
[2020-11-10] MEDS: PANTOPRAZOLE 40 MG TABLET.DR. PO SCH (08:00)
[2020-11-10] MEDS: NICOTINE 21MG PATCH. TD SCH (08:00)
[2020-11-10] MEDS: ACETAMINOPHEN 325 MG TABLET. PO PRN (08:01)
[2020-11-10] MEDS: LISINOPRIL 20 MG TABLET PO SCH ×2 (08:01→21:42)
--- NOTE | 2020-11-10 09:41 | PDOC ---
PROGRESS NOTES Date of Service: DATE: 11/10/20 TIME: 09:40 Chief Complaint Chief Complaint ASSESSMENT: 1. Left tibial fracture with acute spiral mid to distal tibial shaft fracture, vascular calcifications of the knee, and an oblique acute distal fibular fracture. 2. Atelectasis. 3. Severe hypokalemia. K DUR 40 MEQ po x 1 11-10 4. Mechanical fall. 5. Urinary tract infection. 6. Cognitive decline, moderate., suspect moderate dementia 7. History of displaced radius fracture, 03/2020. 8. Thyroid nodules measuring up to 1.8 cm in the left lobe. Followup sonogram is recommended as an outpatient. 9. diabetes 10. HX COPD 11. HYPERTENSION 12, GI REGIMENT for obstipation PLAN: Admit. IV fluids. Ortho consult. Replace potassium IV or p.o. IV pain control. Anticipate length of stay to be greater than 3 midnights. Current meds, please see medication reconciliation. DUONEBS QID PRN ACCUCHECKS iv antibiotics trend electrolytes 11-10 still a bit disoriented D/W FAMILY, DESIRES D/C WITH HOME HEALTH, REFUSED SNF Total time the patient examined, chart review was 27 minutes, greater than 50% of time spent with the patient exam, chart review and the patient care coordination. dvt prophylaxis, HOME MEDS HH PLACEMENT 11/11 History of Present Illness History of Present Illness CHIEF COMPLAINT: Painful ankle, lower leg. HISTORY OF PRESENT ILLNESS: This pleasantly confused 79-year-old female with a known history of COPD and hypertension, apparently fell 2 days prior. Her daughter states that her foot was twisted and she sat on the right leg. She has been mostly bed bound for the past 6 months. There was no head injury. She is very hard of hearing and is not a very good historian. When seen in the ER, there was evidence of a distal fibular and left tibial fracture. She was hypokalemic as well and had urinary tract infection. Dr. Oglesby was consulted and the patient was admitted for further care and pain control. PAST MEDICAL HISTORY: Includes history of diabetes, skin cancer, COPD, no alcohol use, hypertension, diabetes type 2. She has had a previous cholecystectomy and tubal ligation. FAMILY HISTORY: Positive for cancer and heart disease. SOCIAL HISTORY: Smokes less than a pack per day. REVIEW OF SYSTEMS: The patient is a poor historian, but denies fever or chills. Denies cough, abdominal pain, back pain or paraspinal pain. Denies rash. No headache, polyuria, depression or anxiety. Denies headache. She has no loss of consciousness. 14 pt ros otherwise neg Vitals Vitals Vital Signs Date Time Temp Pulse Resp B/P (MAP) Pulse Ox O2 Delivery O2 Flow Rate FiO2 11/10/20 08:01 95 185/99 11/10/20 07:00 99.8 16 95 Room Air 99.8 11/09/20 20:30 2.0 Physical Exam Physical Exam GENERAL: Well-developed, well-nourished. NECK: Supple. HEENT: Throat and pharynx are clear. She does not follow commands well. She does speak in sentences. There is no tachypnea., [place] LUNGS: Clear with distant breath sounds. ABDOMEN: Soft, nontender. SKIN: Warm and dry. EXTREMITIES: No pelvic tenderness or CVA tenderness. She has tenderness to palpation of the right lateral medial malleolus and pain on the fibular head. No plantar ecchymosis sign. No pain over the metatarsals. NEUROLOGIC: She is alert, has good sensory function. Mood is normal. LABORATORY DATA: EKG shows QTc of 476, T-waves are diffusely inverted in leads I, II, III, aVF, V3 through V6. No ST segment depression. CT of the head shows moderate bilateral periventricular white matter consistent with small vessel ischemic disease. No intracranial acute findings. The x-rays of the cervical spine shows no acute fracture. Chest x-ray shows patchy left basilar atelectasis. There is an acute spiral mid to distal tibial shaft fracture with soft tissue swelling and oblique distal fibular fracture. The ankle mortise is symmetric. There is osteopenia present. There is a large amount of stool in the rectum. Potassium was noted to be very low at 2.7, BUN 22, creatinine 1.1, sodium 144. Troponin less than 0.017. Alkaline phosphatase 72, albumin 3.5. General: Alert, Cooperative, No acute distress Lungs: Clear Abdomen: Normal bowel sounds, Soft Extremities: No cyanosis Labs LABS Laboratory Tests Test 11/09/20 11:24 11/09/20 16:38 11/09/20 21:35 11/10/20 07:45 Glucose (Fingerstick) 192 mg/dL (70-99) 158 mg/dL (70-99) 149 mg/dL (70-99) 126 mg/dL (70-99) Assessment and Plan Assessmemt and Plan Problems Medical Problems: (1) Fracture of distal fibula Status: Acute (2) Hypokalemia Status: Acute (3) Left tibial fracture Status: Acute (4) UTI (urinary tract infection) Status: Acute Comment Review of Relevant I have reviewed the following items ernesto (where applicable) has been applied. Labs Laboratory Tests Test 11/08/20 10:02 11/08/20 10:26 11/08/20 11:27 11/08/20 16:10 Urine Collection Type Unknown Urine Color Yellow Urine Clarity Clear Urine pH 5.5 (<5.0-8.0) Urine Specific [place] 1.015 (1.000-1.030) Urine Protein Negative mg/dL (NEG-TRACE) Urine Glucose (UA) Negative mg/dL (NEG) Urine Ketones (Stick) Negative mg/dL (NEG) Urine Blood Negative (NEG) Urine Nitrite Positive (NEG) Urine Bilirubin Negative (NEG) Urine Urobilinogen Dipstick 1.0 mg/dL (0.2 mg/dL) Urine Leukocyte Esterase Large (NEG) Urine RBC 0 /HPF (0-2) Urine WBC >40 /HPF (0-4) Urine Squamous Epithelial Cells Few /LPF Urine Bacteria Many /HPF (0-FEW) Urine Hyaline Casts Moderate /HPF White Blood Count 5.6 x10^3/uL (4.0-11.0) Red Blood Count 4.05 x10^6/uL (3.50-5.40) Hemoglobin 13.7 g/dL (12.0-15.5) Hematocrit 39.2 % (36.0-47.0) Mean Corpuscular Volume 97 fL (79-100) Mean Corpuscular Hemoglobin 34 pg (25-35) Mean Corpuscular Hemoglobin Concent 35 g/dL (31-37) Red Cell Distribution Width 13.3 % (11.5-14.5) Platelet Count 139 x10^3/uL (140-400) Neutrophils (%) (Auto) 77 % (31-73) Lymphocytes (%) (Auto) 16 % (24-48) Monocytes (%) (Auto) 6 % (0-9) Eosinophils (%) (Auto) 2 % (0-3) Basophils (%) (Auto) 0 % (0-3) Neutrophils # (Auto) 4.3 x10^3/uL (1.8-7.7) Lymphocytes # (Auto) 0.9 x10^3/uL (1.0-4.8) Monocytes # (Auto) 0.3 x10^3/uL (0.0-1.1) Eosinophils # (Auto) 0.1 x10^3/uL (0.0-0.7) Basophils # (Auto) 0.0 x10^3/uL (0.0-0.2) Sodium Level 144 mmol/L (136-145) Potassium Level 2.7 mmol/L (3.5-5.1) Chloride Level 103 mmol/L (98-107) Carbon Dioxide Level 36 mmol/L (21-32) Anion Gap 5 (6-14) Blood Urea Nitrogen 22 mg/dL (7-20) Creatinine 1.1 mg/dL (0.6-1.0) Estimated GFR (Cockcroft-Gault) 48.0 BUN/Creatinine Ratio 20 (6-20) Glucose Level 157 mg/dL (70-99) Calcium Level 9.1 mg/dL (8.5-10.1) Total Bilirubin 1.0 mg/dL (0.2-1.0) Aspartate Amino Transf (AST/SGOT) 20 U/L (15-37) Alanine Aminotransferase (ALT/SGPT) 29 U/L (14-59) Alkaline Phosphatase 72 U/L (46-116) Troponin I Quantitative < 0.017 ng/mL (0.000-0.055) Total Protein 6.5 g/dL (6.4-8.2) Albumin 3.5 g/dL (3.4-5.0) Albumin/Globulin Ratio 1.2 (1.0-1.7) Coronavirus (PCR) Not detected (Not Detected) SARS-CoV-2 Antigen (Rapid) Negative (NEGATIVE) Glucose (Fingerstick) 131 mg/dL (70-99) Test 11/08/20 23:28 11/09/20 08:18 11/09/20 08:59 11/09/20 11:24 Glucose (Fingerstick) 167 mg/dL (70-99) 148 mg/dL (70-99) 192 mg/dL (70-99) White Blood Count 6.2 x10^3/uL (4.0-11.0) Red Blood Count 3.61 x10^6/uL (3.50-5.40) Hemoglobin 12.2 g/dL (12.0-15.5) Hematocrit 35.3 % (36.0-47.0) Mean Corpuscular Volume 98 fL (79-100) Mean Corpuscular Hemoglobin 34 pg (25-35) Mean Corpuscular Hemoglobin Concent 35 g/dL (31-37) Red Cell Distribution Width 13.2 % (11.5-14.5) Platelet Count 131 x10^3/uL (140-400) Neutrophils (%) (Auto) 75 % (31-73) Lymphocytes (%) (Auto) 17 % (24-48) Monocytes (%) (Auto) 8 % (0-9) Eosinophils (%) (Auto) 0 % (0-3) Basophils (%) (Auto) 0 % (0-3) Neutrophils # (Auto) 4.6 x10^3/uL (1.8-7.7) Lymphocytes # (Auto) 1.1 x10^3/uL (1.0-4.8) Monocytes # (Auto) 0.5 x10^3/uL (0.0-1.1) Eosinophils # (Auto) 0.0 x10^3/uL (0.0-0.7) Basophils # (Auto) 0.0 x10^3/uL (0.0-0.2) Phosphorus Level 3.1 mg/dL (2.6-4.7) Test 11/09/20 16:38 11/09/20 21:35 11/10/20 07:45 Glucose (Fingerstick) 158 mg/dL (70-99) 149 mg/dL (70-99) 126 mg/dL (70-99) Laboratory Tests Test 11/09/20 11:24 11/09/20 16:38 11/09/20 21:35 11/10/20 07:45 Glucose (Fingerstick) 192 mg/dL (70-99) 158 mg/dL (70-99) 149 mg/dL (70-99) 126 mg/dL (70-99) Microbiology 11/08/20 Urine Culture - Final, Complete 11/08/20 Antimicrobic Susceptibility - Final, Complete Medications Current Medications Acetaminophen/ Hydrocodone Bitart (Lortab 5/325) 1 tab 1X ONCE PO ; Start 11/08/20 at 10:00; Stop 11/08/20 at 10:33; Status DC Hydromorphone HCl (Dilaudid) 0.5 mg 1X ONCE IVP Last administered on 11/08/20at 10:40; Start 11/08/20 at 10:45; Stop 11/08/20 at 10:46; Status DC Potassium Bicarbonate (Potassium Effervescent Tablet) 40 meq 1X ONCE PO Last administered on 11/08/20at 11:26; Start 11/08/20 at 11:00; Stop 11/08/20 at 11:02; Status DC Ceftriaxone Sodium (Rocephin) 1 gm 1X ONCE IVP Last administered on 11/08/20at 12:39; Start 11/08/20 at 12:00; Stop 11/08/20 at 12:01; Status DC Hydromorphone HCl (Dilaudid) 0.5 mg PRN Q2HR ONCE IVP Last administered on 11/08/20at 12:53; Start 11/08/20 at 13:00; Stop 11/08/20 at 13:01; Status DC Ondansetron HCl (Zofran) 4 mg PRN Q8HRS PRN IV NAUSEA/VOMITING; Start 11/08/20 at 13:30; Stop 11/08/20 at 14:22; Status DC Fentanyl Citrate (Fentanyl 2ml Vial) 50 mcg PRN Q1HR PRN IV PAIN Last administered on 11/09/20at 04:06; Start 11/08/20 at 13:30; Stop 11/09/20 at 13:29; Status DC Sodium Chloride 1,000 ml @ 100 mls/hr Q10H IV Last administered on 11/08/20at 13:57; Start 11/08/20 at 13:30; Stop 11/08/20 at 23:29; Status DC Acetaminophen (Tylenol) 650 mg PRN Q4HRS PRN PO FEVER > 100.3'F; Start 11/08/20 at 13:30; Stop 11/08/20 at 14:22; Status DC Potassium Bicarbonate (Potassium Effervescent Tablet) 40 meq 1X ONCE FT ; Start 11/08/20 at 14:15; Stop 11/08/20 at 14:16; Status UNV Potassium Bicarbonate (Potassium Effervescent Tablet) 40 meq 1X ONCE FT ; Start 11/08/20 at 14:15; Stop 11/08/20 at 14:16; Status UNV Potassium Chloride/Water 100 ml @ 100 mls/hr Q1H IV ; Start 11/08/20 at 14:15; Stop 11/08/20 at 18:14; Status UNV Magnesium Sulfate 50 ml @ 25 mls/hr Q24H IV ; Start 11/08/20 at 14:15; Stop 11/10/20 at 16:14; Status UNV Potassium Phos/ Sodium Phos (Phos-Nak) 1 pkt BID PO ; Start 11/08/20 at 21:00; Stop 11/09/20 at 09:01; Status UNV Potassium Bicarbonate (Potassium Effervescent Tablet) 40 meq Q4H PO ; Start 11/08/20 at 14:15; Stop 11/08/20 at 18:16; Status DC Potassium Bicarbonate (Potassium Effervescent Tablet) 40 meq Q4H PO ; Start 11/08/20 at 14:15; Stop 11/08/20 at 18:16; Status UNV Potassium Chloride/Water 100 ml @ 100 mls/hr Q1H IV ; Start 11/08/20 at 14:15; Stop 11/08/20 at 18:14; Status UNV Info (Non-Icu Electrolyte Protocol) 1 ea CONT PRN PRN MC PER PROTOCOL; Start 11/08/20 at 14:15 Ceftriaxone Sodium (Rocephin) 1 gm Q24H IVP Last administered on 11/09/20at 13:38; Start 11/09/20 at 13:00 Sodium Chloride (Normal Saline Flush) 3 ml QSHIFT PRN IV AFTER MEDS AND BLOOD DRAWS; Start 11/08/20 at 14:15 Sodium Chloride 1,000 ml @ 75 mls/hr [id number] IV Last administered on 11/09/20at 13:38; Start 11/09/20 at 00:00 Ondansetron HCl (Zofran) 4 mg PRN Q4HRS PRN IV NAUSEA/VOMITING; Start 11/08/20 at 14:15 Acetaminophen (Tylenol) 650 mg PRN Q4HRS PRN PO TEMP OVER 100.4F OR MILD PAIN Last administered on 11/10/20at 08:01; Start 11/08/20 at 14:15 Acetaminophen (Tylenol Supp) 650 mg PRN Q4HRS PRN [place] TEMP OVER 100.4F OR MILD PAIN; Start 11/08/20 at 14:15 Al Hydroxide/Mg Hydroxide (Mylanta Plus Xs) 30 ml PRN DAILY PRN PO HEARTBURN / GAS; Start 11/08/20 at 14:15 Docusate Sodium (Colace) 100 mg PRN BID PRN PO HARD STOOLS; Start 11/08/20 at 14:15 Albuterol Sulfate (Ventolin Neb Soln) 2.5 mg PRN Q4HRS PRN NEB SHORTNESS OF BREATH; Start 11/08/20 at 14:15 Guaifenesin (Robitussin) 200 mg PRN Q4HRS PRN PO COUGH; Start 11/08/20 at 14:15 Enoxaparin Sodium (Lovenox 40mg Syringe) 40 mg Q24H SQ Last administered on 11/09/20at 16:45; Start 11/08/20 at 16:00 Albuterol Sulfate (Ventolin Neb Soln) 2.5 mg PRN Q6HRS PRN NEB SHORTNESS OF BREATH; Start 11/08/20 at 14:30; Status Cancel Docusate Sodium (Colace) 100 mg BID PO Last administered on 11/10/20at 08:00; Start 11/08/20 at 21:00 Lisinopril (Prinivil) 20 mg DAILY PO Last administered on 11/10/20at 08:01; Start 11/09/20 at 09:00 Pantoprazole Sodium (Protonix) 40 mg DAILYAC PO Last administered on 11/10/20at 08:00; Start 11/09/20 at 07:30 Fentanyl Citrate (Fentanyl 2ml Vial) 25 mcg PRN Q5MIN PRN IVP MILD PAIN 1-3; Start 11/08/20 at 14:45; Stop 11/09/20 at 14:44; Status DC Fentanyl Citrate (Fentanyl 2ml Vial) 50 mcg PRN Q5MIN PRN IVP MODERATE PAIN 4-6 Last administered on 11/08/20at 20:15; Start 11/08/20 at 14:45; Stop 11/09/20 at 14:44; Status DC Morphine Sulfate (Morphine Sulfate) 1 mg PRN Q10MIN PRN IVP SEVERE PAIN 7-10; Start 11/08/20 at 14:45; Stop 11/09/20 at 14:44; Status UNV Ringer's Solution 1,000 ml @ 30 mls/hr Q24H IV ; Start 11/08/20 at 14:45; Stop 11/09/20 at 02:44; Status DC Hydromorphone HCl (Dilaudid) 0.5 mg PRN Q10MIN PRN IVP SEVERE PAIN 7-10, 2nd CHOICE; Start 11/08/20 at 14:45; Stop 11/09/20 at 14:44; Status DC Prochlorperazine Edisylate (Compazine) 5 mg PACU PRN PRN IVP NAUSEA, MRX1 Last administered on 11/08/20at 19:50; Start 11/08/20 at 14:45; Stop 11/09/20 at 14:44; Status DC Insulin Human Lispro (HumaLOG VIAL for OP,RR ONLY) 0-10 units PRN Q1HR PRN SQ PER PROTOCOL; Start 11/08/20 at 15:45; Stop 11/09/20 at 15:44; Status DC Propofol (Diprivan) 200 mg STK-MED ONCE IV ; Start 11/08/20 at 16:34; Stop 11/08/20 at 16:34; Status DC Lidocaine HCl (Lidocaine Pf 2% Vial) 5 ml STK-MED ONCE .ROUTE ; Start 11/08/20 at 16:34; Stop 11/08/20 at 16:34; Status DC Fentanyl Citrate (Fentanyl 2ml Vial) 100 mcg STK-MED ONCE .ROUTE ; Start 11/08/20 at 17:36; Stop 11/08/20 at 17:37; Status DC Ondansetron HCl (Zofran) 4 mg STK-MED ONCE .ROUTE ; Start 11/08/20 at 17:50; Stop 11/08/20 at 17:51; Status DC Sevoflurane (Ultane) 60 ml STK-MED ONCE IH ; Start 11/08/20 at 18:11; Stop 11/08/20 at 18:12; Status DC Fentanyl Citrate (Fentanyl 2ml Vial) 100 mcg STK-MED ONCE .ROUTE ; Start 11/08/20 at 18:39; Stop 11/08/20 at 18:39; Status DC Prochlorperazine Edisylate (Compazine) 10 mg STK-MED ONCE .ROUTE ; Start 11/08/20 at 18:39; Stop 11/08/20 at 18:40; Status DC Fentanyl Citrate (Fentanyl 2ml Vial) 100 mcg STK-MED ONCE .ROUTE ; Start 11/08/20 at 20:08; Stop 11/08/20 at 20:09; Status DC Labetalol HCl (Normodyne Iv Push) 10 mg PRN Q3HRS PRN IVP HYPERTENSION Last administered on 11/08/20at 23:14; Start 11/08/20 at 23:00 Lactobacillus Rhamnosus (Culturelle) 1 cap BID PO Last administered on 11/10/20at 08:00; Start 11/09/20 at 21:00 Nicotine (Nicoderm Cq 21mg) 1 patch DAILY TD Last administered on 11/10/20at 08:00; Start 11/09/20 at 17:00 Active Scripts Active Percocet 10-325 Mg Tablet (Oxycodone/Acetaminophen) 1 Each Tablet 1 Tab PO PRN Q4HRS PRN Reported Amlodipine Besylate 2.5 Mg Tablet 1 Tab PO DAILY DURAGESIC 25mcg/hr (Fentanyl) 1 Each Patch.td72 1 Patch TD Q72H Furosemide 40 Mg Tablet 40 Mg PO DAILY Meloxicam 7.5 Mg Tablet 15 Mg PO DAILY Proair Hfa Inhaler (Albuterol Sulfate) 8.5 Gm Hfa.aer.ad 1 Puff INH PRN Q6HRS PRN Lisinopril 20 Mg Tablet 20 Mg PO DAILY Docusate Sodium 100 Mg Capsule 100 Mg PO BID Pioglitazone Hcl 15 Mg Tablet 15 Mg PO DAILY Protonix Packet (Pantoprazole Sodium) 40 Mg Granpkt.dr 40 Mg PO DAILY Vitals/I & O Vital Sign - Last 24 Hours 11/09/20 11/09/20 11/09/20 11/09/20 11:00 15:00 19:00 20:30 Temp 98.9 98.7 98.6 98.9 98.7 98.6 Pulse 79 58 103 Resp 17 16 16 B/P (MAP) 153/69 (97) 151/69 (96) 168/93 (118) Pulse Ox 95 90 94 O2 Delivery Room Air Nasal Cannula Nasal Cannula Nasal Cannula O2 Flow Rate 2.0 2.0 2.0 11/09/20 11/10/20 11/10/20 11/10/20 23:00 03:00 07:00 08:01 Temp 99.8 99.8 Pulse 86 95 80 95 Resp 18 18 16 B/P (MAP) 143/71 (95) 185/99 (127) 171/80 (110) 185/99 Pulse Ox 88 92 95 O2 Delivery Room Air Room Air Room Air Intake and Output 11/09/20 11/09/20 11/10/20 15:00 23:00 07:00 Intake Total 100 ml Output Total 125 ml 0 ml 200 ml Balance -125 ml 0 ml -100 ml Justicifation of Admission Dx: Justifications for Admission: Justification of Admission Dx: N/A SHAISTA ANTON MD Nov 10, 2020 09:41
[2020-11-10] MEDS: HYDROcodone/APAP 7.5/325MG 1 TAB TABLET PO PRN ×2 (10:04→16:15)
[2020-11-10 10:29] LABS: ALBUMIN 2.6 g/dL (3.4-5.0); ALBUMIN/GLOBULIN RATIO 1.1 (1.0-1.7); CALCIUM 8.1 mg/dL (8.5-10.1); CREATININE 0.8 mg/dL (0.6-1.0); GFR 69.4; POTASSIUM 3.3 mmol/L (3.5-5.1); TOTAL BILIRUBIN 0.9 mg/dL (0.2-1.0); TOTAL PROTEIN 4.9 g/dL (6.4-8.2)
[2020-11-10 11:00] VITALS: BP 174/80
[2020-11-10] MEDS ORDERED: POTASSIUM CHLORIDE 20 MEQ TABLET.ER. PO ONE (12:30)
[2020-11-10] MEDS: cefTRIAXone IV Push 1 GM VIAL. IVP SCH (13:32)
[2020-11-10] MEDS ORDERED: MAGNESIUM SULFATE 2GM 50 ML IV PRN (14:30)
[2020-11-10 15:00] VITALS: BP 170/81
[2020-11-10] MEDS: ENOXAPARIN 40 MG/0.4 ML SYRINGE. SQ SCH (16:14)
[2020-11-10] MEDS: LABETALOL 20 MG/4 ML DISP.SYRIN. IVP PRN (16:20)
[2020-11-10 19:00] VITALS: BP 150/76
[2020-11-10 23:00] VITALS: BP 188/98
[2020-11-11 03:00] VITALS: BP 179/87
[2020-11-11] MEDS: LABETALOL 20 MG/4 ML DISP.SYRIN. IVP PRN ×2 (03:38→04:38)
[2020-11-11 07:00] VITALS: BP 186/92
[2020-11-11] MEDS: IV NORMAL SALINE 1000ML BAG 1,000 ML IV SCH (07:47)
[2020-11-11] MEDS: PANTOPRAZOLE 40 MG TABLET.DR. PO SCH (07:47)
[2020-11-11] MEDS: LISINOPRIL 20 MG TABLET PO SCH (07:50)
[2020-11-11] MEDS: LACTOBACILLUS RHAMNOSUS GG 1 CAPSULE. PO SCH (07:50)
[2020-11-11] MEDS: DOCUSATE SODIUM 100 MG CAPSULE. PO SCH (07:51)
[2020-11-11] MEDS: NICOTINE 21MG PATCH. TD SCH (07:51)
[2020-11-11 11:00] VITALS: BP 187/95
--- NOTE | 2020-11-11 11:34 | NUR ---
KLAUDIA following. Discussed with RN, pt from home with daughter, room air, dysphagia II. PT/OT recommending SNF. Family wanting to resume home health with [facility] [place]. KLAUDIA faxed clinicals to [facility]. Awaiting discharge orders. Pt's daughter reported pt will need transportation home. KLAUDIA will continue to follow. Addendum: 11/11/20 at 1554 by DULCE RUDOLPH Discharge orders faxed to [facility] [place]. Transportation arranged with [facility] for between [phone]. RN notified.
[2020-11-11 12:21] LABS: CALCIUM 8.6 mg/dL (8.5-10.1); CREATININE 0.7 mg/dL (0.6-1.0); GFR 80.9; POTASSIUM 3.5 mmol/L (3.5-5.1)
--- NOTE | 2020-11-11 12:26 | PDOC ---
[facility] [facility] PROGRESS NOTE Date of Service DOS: DATE: 11/11/20 TIME: 12:22 Chief Complaint Chief Complaint ASSESSMENT: 1. Left tibial fracture with acute spiral mid to distal tibial shaft fracture, vascular calcifications of the knee, and an oblique acute distal fibular fracture. 2. Atelectasis. 3. Severe hypokalemia. K DUR 40 MEQ po x 1 1-31 4. Mechanical fall. 5. Urinary tract infection. 6. Cognitive decline, moderate., suspect moderate dementia 7. History of displaced radius fracture, 03/2020. 8. Thyroid nodules measuring up to 1.8 cm in the left lobe. Followup sonogram is recommended as an outpatient. 9. diabetes 10. HX COPD 11. HYPERTENSION 12, GI REGIMENT for obstipation PLAN: Admit. IV fluids. Ortho consult. Replace potassium IV or p.o. IV pain control. Anticipate length of stay to be greater than 3 midnights. Current meds, please see medication reconciliation. DUONEBS QID PRN ACCUCHECKS iv antibiotics trend electrolytes 11-10 still a bit disoriented D/W FAMILY, DESIRES D/C WITH HOME HEALTH, REFUSED SNF 11/11: Patient seen and evaluated. Patient's family is refusing skilled rehab, desiring discharge home with home health. Greater than 30 minutes was spent managing the discharge this patient. History of Present Illness History of Present Illness CHIEF COMPLAINT: Painful ankle, lower leg. HISTORY OF PRESENT ILLNESS: This pleasantly confused 79-year-old female with a known history of COPD and hypertension, apparently fell 2 days prior. Her daughter states that her foot was twisted and she sat on the right leg. She has been mostly bed bound for the past 6 months. There was no head injury. She is very hard of hearing and is not a very good historian. When seen in the ER, there was evidence of a distal fibular and left tibial fracture. She was hypokalemic as well and had urinary tract infection. Dr. Oglesby was consulted and the patient was admitted for further care and pain control. PAST MEDICAL HISTORY: Includes history of diabetes, skin cancer, COPD, no alcohol use, hypertension, diabetes type 2. She has had a previous cholecystectomy and tubal ligation. FAMILY HISTORY: Positive for cancer and heart disease. SOCIAL HISTORY: Smokes less than a pack per day. REVIEW OF SYSTEMS: The patient is a poor historian, but denies fever or chills. Denies cough, abdominal pain, back pain or paraspinal pain. Denies rash. No headache, polyuria, depression or anxiety. Denies headache. She has no loss of consciousness. 14 pt ros otherwise neg Vitals/I&O Vitals/I&O: Vital Signs Date Time Temp Pulse Resp B/P (MAP) Pulse Ox O2 Delivery O2 Flow Rate FiO2 11/11/20 11:00 97.7 83 16 187/95 (125) 97 Room Air 97.7 I & O 11/10/20 11/10/20 11/11/20 15:00 23:00 07:00 Output Total 50 ml 50 ml 650 ml Balance -50 ml -50 ml -650 ml Physical Exam Physical Exam: GENERAL: Well-developed, well-nourished. NECK: Supple. HEENT: Throat and pharynx are clear. She does not follow commands well. She does speak in sentences. There is no tachypnea., [place] LUNGS: Clear with distant breath sounds. ABDOMEN: Soft, nontender. SKIN: Warm and dry. EXTREMITIES: No pelvic tenderness or CVA tenderness. She has tenderness to palpation of the right lateral medial malleolus and pain on the fibular head. No plantar ecchymosis sign. No pain over the metatarsals. NEUROLOGIC: She is alert, has good sensory function. Mood is normal. LABORATORY DATA: EKG shows QTc of 476, T-waves are diffusely inverted in leads I, II, III, aVF, V3 through V6. No ST segment depression. CT of the head shows moderate bilateral periventricular white matter consistent with small vessel ischemic disease. No intracranial acute findings. The x-rays of the cervical spine shows no acute fracture. Chest x-ray shows patchy left basilar atelectasis. There is an acute spiral mid to distal tibial shaft fracture with soft tissue swelling and oblique distal fibular fracture. The ankle mortise is symmetric. There is osteopenia present. There is a large amount of stool in the rectum. Potassium was noted to be very low at 2.7, BUN 22, creatinine 1.1, sodium 144. Troponin less than 0.017. Alkaline phosphatase 72, albumin 3.5. General: Alert, Cooperative, No acute distress Heart: Regular rate Lungs: Clear Abdomen: Normal bowel sounds, Soft Extremities: No cyanosis Skin: No rashes Labs Labs: Laboratory Tests Test 11/10/20 16:22 11/10/20 21:18 11/11/20 07:48 11/11/20 12:03 Glucose (Fingerstick) 193 mg/dL (70-99) 177 mg/dL (70-99) 163 mg/dL (70-99) 133 mg/dL (70-99) Assessment and Plan Assessmemt and Plan Problems Medical Problems: (1) Fracture of distal fibula Status: Acute (2) Hypokalemia Status: Acute (3) Left tibial fracture Status: Acute (4) UTI (urinary tract infection) Status: Acute Comment Review of Relevant I have reviewed the following items ernesto (where applicable) has been applied. Medications: Current Medications Medications (Trade) Dose Ordered Sig/Jamila Route PRN Reason Start Time Stop Time Status Last Admin Dose Admin Potassium Chloride (Klor-Con) 40 meq 1X ONCE PO 11/10/20 12:30 11/10/20 12:31 DC 11/10/20 13:32 Lisinopril (Prinivil) 20 mg BID PO 11/10/20 21:00 11/11/20 07:50 Magnesium Sulfate 50 ml @ 25 mls/hr PRN DAILY PRN IV MAG 1.7 OR LESS 11/10/20 14:30 11/10/20 16:13 Justifications for Admission Other Justification SONIA HAMMER MD Nov 11, 2020 12:26
[2020-11-11] MEDS ORDERED: cefTRIAXone IM 1 GM VIAL IM ONE (14:30)
[2020-11-11 15:00] VITALS: BP 176/86
--- NOTE | 2020-11-11 15:36 | SNU/HH DC ---
DISCHARGE WITH HOME HEALTH DISCHARGE INFORMATION: Discharge Date: Nov 11, 2020 Final Diagnosis: Problems Medical Problems: (1) Fracture of distal fibula Status: Acute (2) Hypokalemia Status: Acute (3) Left tibial fracture Status: Acute (4) UTI (urinary tract infection) Status: Acute Condition on Discharge: Stable CODE STATUS: Code Status: Full HOME HEALTH: Face to Face: I certify this patient is under my care and that I, or a nurse practitioner or physician's assistant corporation counsel working with me, had a face to face encounter that meets the physician face to face encounter requirements with this patient on 11/11/2020. RN For Eval/Treatment: Yes Physical Therapy For: Evalulation/Treatment Occupational Therapy For: Evaluation/Treatment Pt Meets Homebound Status: Poor coordination w/ amb., Unsteady balance w/ amb,, Limited distance walking POST DISCHARGE ORDERS: Activity Instructions for Disc: Activity as tolerated, Other, see below Weight Bearing Status after Di: As tolerated, Non weight bearing Wound/Incision Care: Ice to area for comfort, Do not change dressing TREATMENT/EQUIPMENT ORDERS: Adaptive Equipment Issued: None CERTIFICATION STATEMENT: Certification Statement: Certification Statement: Based on the above finding, I certify that this patient is confined to the home and needs intermittent intermediate care, physical therapy and/or speech therapy, or continues to need occupational therapy.~ This patient is under my care, and I have initiated the establishment of the plan of care.~ This patient will be followed by myself or a community physician who will periodically review the plan of care. Home Meds Active Scripts Oxycodone/Apap 10-325 (PERCOCET 10-325 MG TABLET ) 1 Each Tablet, 1 TAB PO PRN Q4HRS PRN for PAIN, #60 TAB 0 Refills Prov:MARISSA CAI MD 03/22/20 Reported Medications Amlodipine Besylate (AMLODIPINE BESYLATE) 2.5 Mg Tablet, 1 TAB PO DAILY for htn 11/08/20 Fentanyl (DURAGESIC 25mcg/hr) 1 Each Patch.td72, 1 PATCH TD Q72H for PAIN, PATCH 03/21/20 Furosemide (FUROSEMIDE) 40 Mg Tablet, 40 MG PO DAILY for FLUID RETENTION, TAB 03/21/20 Meloxicam (MELOXICAM) 7.5 Mg Tablet, 15 MG PO DAILY for PAIN, TAB 04/12/14 Albuterol Sulfate (PROAIR HFA INHALER) 8.5 Gm Hfa.aer.ad, 1 PUFF INH PRN Q6HRS PRN for SHORTNESS OF BREATH, INHALER 0 Refills 04/12/14 Lisinopril (LISINOPRIL) 20 Mg Tablet, 20 MG PO DAILY for FOR HYPERTENSION, #30 TAB 0 Refills 04/12/14 Docusate Sodium (DOCUSATE SODIUM) 100 Mg Capsule, 100 MG PO BID 04/12/14 Pioglitazone Hcl (PIOGLITAZONE HCL) 15 Mg Tablet, 15 MG PO DAILY, TAB 04/12/14 Pantoprazole Sodium (PROTONIX PACKET) 40 Mg , 40 MG PO DAILY, TAB 04/12/14 SONIA HAMMER MD Nov 11, 2020 15:36
--- NOTE | 2020-11-11 15:45 | PDOC3 ---
Discharge Summary Visit Information Date of Admission: Nov 08, 2020 Date of Discharge: Nov 11, 2020 Final Diagnosis Problems Medical Problems: (1) Fracture of distal fibula Status: Acute (2) Hypokalemia Status: Acute (3) Left tibial fracture Status: Acute (4) UTI (urinary tract infection) Status: Acute Brief Hospital Course Allergies Allergies Coded Allergies Type Severity Reaction Last Updated Verified morphine Allergy Intermediate 03/22/20 Yes prednisone Allergy Intermediate "STEROIDS" cause anxiety,hallucinations 03/22/20 Yes Penicillins Adverse Reaction Intermediate headache 03/22/20 Yes Vital Signs Vital Signs Date Time Temp Pulse Resp B/P (MAP) Pulse Ox O2 Delivery O2 Flow Rate FiO2 11/11/20 15:00 98.4 75 16 176/86 (116) 98 Room Air 98.4 Lab Results Laboratory Tests Test 11/09/20 16:38 11/09/20 21:35 11/10/20 07:45 11/10/20 09:02 Glucose (Fingerstick) 158 mg/dL (70-99) 149 mg/dL (70-99) 126 mg/dL (70-99) Sodium Level 142 mmol/L (136-145) Potassium Level 3.3 mmol/L (3.5-5.1) Chloride Level 103 mmol/L (98-107) Carbon Dioxide Level 33 mmol/L (21-32) Anion Gap 6 (6-14) Blood Urea Nitrogen 14 mg/dL (7-20) Creatinine 0.8 mg/dL (0.6-1.0) Estimated GFR (Cockcroft-Gault) 69.4 BUN/Creatinine Ratio 18 (6-20) Glucose Level 154 mg/dL (70-99) Calcium Level 8.1 mg/dL (8.5-10.1) Magnesium Level 1.7 mg/dL (1.8-2.4) Total Bilirubin 0.9 mg/dL (0.2-1.0) Aspartate Amino Transf (AST/SGOT) 13 U/L (15-37) Alanine Aminotransferase (ALT/SGPT) 20 U/L (14-59) Alkaline Phosphatase 57 U/L (46-116) Total Protein 4.9 g/dL (6.4-8.2) Albumin 2.6 g/dL (3.4-5.0) Albumin/Globulin Ratio 1.1 (1.0-1.7) Test 1/31/21 11:33 11/10/20 16:22 11/10/20 21:18 11/11/20 07:48 Glucose (Fingerstick) 164 mg/dL (70-99) 193 mg/dL (70-99) 177 mg/dL (70-99) 163 mg/dL (70-99) Test 11/11/20 11:55 11/11/20 12:03 Sodium Level 140 mmol/L (136-145) Potassium Level 3.5 mmol/L (3.5-5.1) Chloride Level 102 mmol/L (98-107) Carbon Dioxide Level 29 mmol/L (21-32) Anion Gap 9 (6-14) Blood Urea Nitrogen 11 mg/dL (7-20) Creatinine 0.7 mg/dL (0.6-1.0) Estimated GFR (Cockcroft-Gault) 80.9 Glucose Level 134 mg/dL (70-99) Calcium Level 8.6 mg/dL (8.5-10.1) Glucose (Fingerstick) 133 mg/dL (70-99) Laboratory Tests Test 11/10/20 16:22 11/10/20 21:18 11/11/20 07:48 11/11/20 11:55 Glucose (Fingerstick) 193 mg/dL (70-99) 177 mg/dL (70-99) 163 mg/dL (70-99) Sodium Level 140 mmol/L (136-145) Potassium Level 3.5 mmol/L (3.5-5.1) Chloride Level 102 mmol/L (98-107) Carbon Dioxide Level 29 mmol/L (21-32) Anion Gap 9 (6-14) Blood Urea Nitrogen 11 mg/dL (7-20) Creatinine 0.7 mg/dL (0.6-1.0) Estimated GFR (Cockcroft-Gault) 80.9 Glucose Level 134 mg/dL (70-99) Calcium Level 8.6 mg/dL (8.5-10.1) Test 11/11/20 12:03 Glucose (Fingerstick) 133 mg/dL (70-99) Brief Hospital Course Ms. North is a 79 old female who presented with a right spiral tibial shaft fracture. Consultation placed to orthopedic surgery. She had operative reduction intramedullary nail fixation of right tibial shaft fracture. She also received physical therapy and Occupational Therapy, and was recommended nursing home for acute rehab. After discussion with patient's daughter, she opted for home with home health instead. She was discharged with outpatient orthopedic follow-up. Discharge Information Condition at Discharge: Stable Follow Up: Weeks Disposition/Orders: D/C to Home w/ HH Scheduled Amlodipine Besylate (Amlodipine Besylate) 2.5 Mg Tablet, 1 TAB PO DAILY for htn, (Reported) Entered as Reported by: GITA CABRERA on 11/08/201557 Last Taken: Unknown Dose on 11/08/20 Last Action: New Order on 11/08/201557 by GITA CABRERA Docusate Sodium (Docusate Sodium) 100 Mg Capsule, 100 MG PO BID, (Reported) Entered as Reported by: MICHEAL DONAHUE on 04/12/14823 Last Taken: Unknown Dose on 11/08/20 Last Action: Last Taken Edited on 11/08/201557 by GITA CABRERA Fentanyl (DURAGESIC 25mcg/hr) 1 Each Patch.td72, 1 PATCH TD Q72H for PAIN, (Reported) Entered as Reported by: RENE SALGADO on 03/21/20 1240 Last Taken: Unknown Dose on 11/08/20 Last Action: Last Taken Edited on 11/08/201557 by GITA CABRERA Meloxicam (Meloxicam) 7.5 Mg Tablet, 15 MG PO DAILY for PAIN, (Reported) Entered as Reported by: MICHEAL DONAHUE on 04/12/14823 Last Taken: Unknown Dose on 11/08/20 Last Action: Last Taken Edited on 11/08/201557 by GITA CABRERA Pantoprazole Sodium (Protonix Packet) 40 Mg Granpkt.dr, 40 MG PO DAILY, (Rep orted) Entered as Reported by: MICHEAL DONAHUE on 04/12/14823 Last Taken: Unknown Dose on 11/08/20 Last Action: Last Taken Edited on 11/08/201557 by GITA CABRERA Pioglitazone Hcl (Pioglitazone Hcl) 15 Mg Tablet, 15 MG PO DAILY, (Reported) Entered as Reported by: MICHEAL DONAHUE on 04/12/14823 Last Taken: Unknown Dose on 11/08/20 Last Action: Last Taken Edited on 11/08/201557 by GITA CABRERA Scheduled PRN Albuterol Sulfate (Proair Hfa Inhaler) 8.5 Gm Hfa.aer.ad, 1 PUFF INH PRN Q6HRS PRN for SHORTNESS OF BREATH, Ref 0 (Reported) Entered as Reported by: MICHEAL DONAHUE on 04/12/14823 Last Taken: Unknown Dose on 11/08/20 Last Action: Last Taken Edited on 1557 by GITA CABRERA Discontinued Medications Furosemide (Furosemide) 40 Mg Tablet, 40 MG PO DAILY for FLUID RETENTION, (Reported) Entered as Reported by: RENE SALGADO on 03/21/20 1240 Last Taken: Unknown Dose on 11/08/20 Last Action: Last Taken Edited on 11/08/201557 by GITA CABRERA Lisinopril (Lisinopril) 20 Mg Tablet, 20 MG PO DAILY for FOR HYPERTENSION, #30 Ref 0 (Reported) Entered as Reported by: MICHEAL DONAHUE on 04/12/14823 Last Taken: Unknown Dose on 11/08/20 Last Action: Last Taken Edited on 11/08/201557 by GITA CABRERA Oxycodone/Apap 10-325 (Percocet 10-325 Mg Tablet ) 1 Each Tablet, 1 TAB PO PRN Q4HRS PRN for PAIN, #60 Ref 0 Prescribed by: MARISSA CAI on 03/22/20 0657 Last Taken: Unknown Dose on 11/08/20 Last Action: Last Taken Edited on 11/08/201557 by GITA CABRERA Justicifation of Admission Dx: Justifications for Admission: Justification of Admission Dx: N/A SONIA HAMMER MD Nov 11, 2020 15:45
[2020-11-11] MEDS: ENOXAPARIN 40 MG/0.4 ML SYRINGE. SQ SCH (16:00)
--- NOTE | 2020-11-11 17:12 | NUR ---
Discharge Note: DESMOND ECHEVERRIA Discharge instructions and discharge home medications reviewed with Family Member and a copy given. All questions have been answered and understanding verbalized. The following instructions and handouts were given: discharge instructions, new prescriptions, education and follow up recommendations. Discontinued lines and drains: Peripheral IV discontinued intact. Patient discharged to Home w/services with Ambulance Personnel via Stretcher
== END 2020-11-11 17:15 | disposition home health service (06) | DRG 492 ==
LOC: ER 09:39 → 5 NORTH 11:52
PROVIDERS: ADMIT Family Medicine; ATTEND Family Medicine
PROC: 0QSG04Z Reposition Right Tibia with Internal Fixation Device, Open Approach (ICD-10-PCS; principal; 2020-11-08 15:30)
DX: S82.241A Displaced spiral fracture of shaft of right tibia, initial encounter for closed fracture (principal); G93.41 Metabolic encephalopathy; S52.571A Other intraarticular fracture of lower end of right radius, initial encounter for closed fracture; N39.0 Urinary tract infection, site not specified; J98.11 Atelectasis; Z74.01 Bed confinement status; Z82.5 Family history of asthma and other chronic lower respiratory diseases; Z85.828 Personal history of other malignant neoplasm of skin; M85.80 Other specified disorders of bone density and structure, unspecified site; M77.30 Calcaneal spur, unspecified foot; M19.079 Primary osteoarthritis, unspecified ankle and foot; M17.10 Unilateral primary osteoarthritis, unspecified knee; K59.00 Constipation, unspecified; K21.9 Gastro-esophageal reflux disease without esophagitis; J44.9 Chronic obstructive pulmonary disease, unspecified; I10 Essential (primary) hypertension; H91.90 Unspecified hearing loss, unspecified ear; F17.210 Nicotine dependence, cigarettes, uncomplicated; Z90.49 Acquired absence of other specified parts of digestive tract; Z96.643 Presence of artificial hip joint, bilateral; F03.90 Unspecified dementia, unspecified severity, without behavioral disturbance, psychotic disturbance, mood disturbance, and anxiety; E87.6 Hypokalemia; E78.5 Hyperlipidemia, unspecified; E11.9 Type 2 diabetes mellitus without complications; E04.2 Nontoxic multinodular goiter; Z20.822 Contact with and (suspected) exposure to COVID-19; W18.39XA Other fall on same level, initial encounter; Y93.89 Activity, other specified; Y92.89 Other specified places as the place of occurrence of the external cause; Y99.8 Other external cause status; M51.36 Other intervertebral disc degeneration, lumbar region; Z88.0 Allergy status to penicillin; Z88.8 Allergy status to other drugs, medicaments and biological substances; S82.831A Other fracture of upper and lower end of right fibula, initial encounter for closed fracture
CPT/HCPCS: 36415; 51702; 70450; 71045; 72125; 72170; 73590; 73610; 73630; 76000; 80048; 80053; 81001; 82962; 83735; 84100; 84484; 85025; 87077; 87086; 87186; 87426; 94640; 96374; 96375; 96376; 99285; C1713; C1880; J0696; J0780; J1170; J1650; J2405; J2704; J3010; J3475; J3490; J7030; J7120; U0003; 97110-GP; 97530-GP; 97535-GO; G0378